=== PATIENT | male | born 1950 | race Caucasian/White ===

== ENCOUNTER → 2020-01-26 11:08 | Outpatient (CLI) | payer MEDICARE, SELFPAY ==
[2020-01-26 12:58] LABS: Albumin, Serum 3.8 g/dL (3.2-5.0); BUN 21 mg/dL (7-18); BUN/Creat Ratio 17.5 RATIO (10-20); Calcium,Total 9.1 mg/dL (8.5-10.1); Chloride 99 mmol/L (98-107); EST Glomerular Filtration Rate 63 mL/min (>60); Est Glom Filt Rate - Afr Amer 77 mL/min (>60); Glucose 186 mg/dL (74-106); Phosphorus 2.7 mg/dL (2.5-4.9); Potassium 4.6 mmol/L (3.5-5.1); Sodium Level 135 mmol/L (136-145)
[2020-01-26 13:37] LABS: Microalbumin,Random Urine 61.5 mg/L (NO RANGE EST.); Microalbumin:Creatinine Ratio 186.9 mg/g CRE (<30 mg/g CRE)
== END ==
PROVIDERS: PCP Internal Medicine; Referring Provider Internal Medicine Nephrology; Visit Provider Internal Medicine Nephrology
DX: N17.9 Acute kidney failure, unspecified (principal); E11.21 Type 2 diabetes mellitus with diabetic nephropathy
CPT/HCPCS: 36415; 80069; 82043; 82570

== ENCOUNTER → 2020-02-08 13:58 | Outpatient (CLI) | payer MEDICARE, SELFPAY ==
--- NOTE | 2020-02-08 14:00 | US_ITS ---
STUDY: RENAL ULTRASOUND - COMPLETE REASON FOR EXAM: Male, 70 years old. Acute renal failure. TECHNIQUE: Ultrasound evaluation of the kidneys was performed with real-time and static mendoza-scale imaging. COMPARISON: None. FINDINGS: RIGHT KIDNEY: Normal location of the right kidney, which is normal in size. The right kidney measures 11.3 x 4.8 x 5.7 cm. There is a normal cortex of the right kidney. The renal cortex measures 1.1 cm. There is no right renal mass or cyst. There are no right renal calculi. There is no right hydronephrosis. DISTAL RIGHT URETER: There is non-visualization of the distal right ureter. There is no demonstrated right ureterovesical junction calculus. There is a visualized right ureteral jet. LEFT KIDNEY: Normal location of the left kidney, which is normal in size. The left kidney measures 11.7 x 5.0 x 6.2 cm. There is a normal cortex of the left kidney. The renal cortex measures 1.6 cm. Well-circumscribed midpole echogenic nodule left kidney measuring 1.5 x 1.3 x 1.2 cm There are no left renal calculi. There is no left hydronephrosis. DISTAL LEFT URETER: There is non-visualization of the distal left ureter. There is no demonstrated left ureterovesical junction calculus. There is a visualized left ureteral jet. BLADDER: The distended urinary bladder has a volume of 77 ml. There is a normal wall thickness of the distended urinary bladder. There is no demonstrated mass within the urinary bladder. There are no demonstrated bladder calculi. US/Kidney and Bladder IMPRESSION: No hydronephrosis. 1.5 cm echogenic nodule midpole left kidney probably representing an incidental angiomyolipoma.. If the patient has a history of malignancy consider follow-up ultrasound in 6 months, CT of the kidneys without contrast or MRI. Otherwise negative exam. Electronically Signed: Ruddy Beasley MD at 2:07 EST , Service support ,
== END ==
PROVIDERS: PCP Internal Medicine; Referring Provider Internal Medicine Nephrology; Visit Provider Internal Medicine Nephrology
DX: N17.9 Acute kidney failure, unspecified (principal)
CPT/HCPCS: 76770

== ENCOUNTER → 2020-02-25 09:37 | Outpatient (CLI) | payer MEDICARE, SELFPAY ==
[2020-02-25 12:44] LABS: Hematocrit 45.8 % (40-54); Hemoglobin 14.1 g/dL (13.0-16.5); Mean Corp Hgb Conc 30.8 g/dL (32-36); Mean Corpuscular Hgb 29.1 pg (27.0-32.0); Mean Corpuscular Volume 94.6 fL (80-94); Mean Platelet Vol. 11.4 fl (6.2-12.0); Platelet Count 254 K/mm3 (150-450); RBC Distribution Width CV 12.9 % (11.6-14.6); RBC Distribution Width SD 45.1 fl (35.1-43.9); Red Blood Count 4.84 M/mm3 (4.6-6.2); White Blood Count 7.3 K/mm3 (4.4-11.0)
[2020-02-25 13:13] LABS: Albumin, Serum 3.7 g/dL (3.2-5.0); BUN 24 mg/dL (7-18); Calcium,Total 9.7 mg/dL (8.5-10.1); Chloride 104 mmol/L (98-107); Creatinine, Serum 1.26 mg/dL (0.70-1.30); EST Glomerular Filtration Rate 60 mL/min (>60); Est Glom Filt Rate - Afr Amer 72 mL/min (>60); Glucose 154 mg/dL (74-106); PTHIN 31.4 pg/mL (18.4-80.1); Phosphorus 3.1 mg/dL (2.5-4.9); Potassium 4.5 mmol/L (3.5-5.1); Sodium Level 136 mmol/L (136-145)
== END ==
PROVIDERS: PCP Internal Medicine; Visit Provider Internal Medicine Nephrology
DX: N18.31 Chronic kidney disease, stage 3a (principal)
CPT/HCPCS: 36415; 80069; 83970; 85027

== ENCOUNTER → 2020-08-04 13:48 | Outpatient (CLI) | payer MEDICARE, SELFPAY ==
--- NOTE | 2020-08-04 13:51 | US_ITS ---
STUDY: RENAL ULTRASOUND - COMPLETE REASON FOR EXAM: Male, 70 years old. Kidney lesion TECHNIQUE: Ultrasound evaluation of the kidneys was performed with real-time and static mendoza-scale imaging. COMPARISON: Comparison is made with prior examination in 02/08/2020. FINDINGS: RIGHT KIDNEY: Normal location of the right kidney, which is normal in size. The right kidney measures 11.5 cm x 4.6 cm x 6.5 cm. There is a normal cortex of the right kidney. The renal cortex measures 1.7 cm. There is a 2.8 cm x 2.3 cm x 2.7 cm cyst in the lateral aspect of the kidney. There are no right renal calculi. There is no right hydronephrosis. DISTAL RIGHT URETER: There is non-visualization of the distal right ureter. There is no demonstrated right ureterovesical junction calculus. There is no demonstrated right ureteral jet. LEFT KIDNEY: Normal location of the left kidney, which is normal in size. The left kidney measures 12.6 cm x 3.8 cm x 4.4 cm. There is a normal cortex of the left kidney. The renal cortex measures 1.4 cm. There is a 1.2 cm x 1.1 cm x 1.1 cm echogenic nodule suggestive of angiomyolipoma. This is unchanged. There is also evidence of a 8mm by 7 mm x 7 mm cyst. There are no left renal calculi. There is no left hydronephrosis. DISTAL LEFT URETER: There is non-visualization of the distal left ureter. There is no demonstrated left ureterovesical junction calculus. There is no demonstrated left ureteral jet. BLADDER: The bladder is not adequately distended for assessment at this time. US/Kidney and Bladder IMPRESSION: Bilateral renal cysts. Stable 8 mm x 7 mm x 7 mm echogenic nodule in the left kidney in keeping with angiomyolipoma. Electronically Signed: Chucho Bolanos MD at 15:07 EDT , Service support ,
== END ==
PROVIDERS: PCP Internal Medicine; Referring Provider Internal Medicine Nephrology; Visit Provider Internal Medicine Nephrology
DX: N28.9 Disorder of kidney and ureter, unspecified (principal)
CPT/HCPCS: 76770

== ENCOUNTER → 2020-08-31 11:01 | Outpatient (CLI) | payer MEDICARE, SELFPAY ==
[2020-08-31 11:42] LABS: Protein, Urine (Random) 6.2 mg/dL (<11.9); Protein:Creat Ratio 200 mg/g CRE (0-200)
[2020-08-31 11:56] LABS: Albumin, Serum 3.6 g/dL (3.2-5.0); BUN 27 mg/dL (7-18); BUN/Creat Ratio 17.2 RATIO (10-20); Chloride 103 mmol/L (98-107); Creatinine, Serum 1.57 mg/dL (0.70-1.30); EST Glomerular Filtration Rate 46 mL/min (>60); Est Glom Filt Rate - Afr Amer 56 mL/min (>60); Glucose 184 mg/dL (74-106); Phosphorus 2.7 mg/dL (2.5-4.9); Potassium 4.8 mmol/L (3.5-5.1); Sodium Level 136 mmol/L (136-145)
== END ==
PROVIDERS: PCP Internal Medicine; Visit Provider Internal Medicine Nephrology
DX: E11.21 Type 2 diabetes mellitus with diabetic nephropathy (principal); N18.31 Chronic kidney disease, stage 3a
CPT/HCPCS: 36415; 80069; 82570; 84156

== ENCOUNTER → 2020-09-28 08:49 | Outpatient (CLI) | payer MEDICARE, SELFPAY ==
[2020-09-28 09:56] LABS: Albumin, Serum 3.5 g/dL (3.2-5.0); BUN 24 mg/dL (7-18); BUN/Creat Ratio 18.3 RATIO (10-20); Calcium,Total 9.2 mg/dL (8.5-10.1); Chloride 103 mmol/L (98-107); Creatinine, Serum 1.31 mg/dL (0.70-1.30); EST Glomerular Filtration Rate 57 mL/min (>60); Est Glom Filt Rate - Afr Amer 69 mL/min (>60); Glucose 166 mg/dL (74-106); Phosphorus 2.7 mg/dL (2.5-4.9); Potassium 4.9 mmol/L (3.5-5.1); Sodium Level 133 mmol/L (136-145)
== END ==
PROVIDERS: PCP Internal Medicine; Referring Provider Internal Medicine Nephrology; Visit Provider Internal Medicine Nephrology
DX: E11.21 Type 2 diabetes mellitus with diabetic nephropathy (principal); N18.31 Chronic kidney disease, stage 3a
CPT/HCPCS: 36415; 80069

== ENCOUNTER → 2021-02-22 10:12 | Outpatient (CLI) | payer MEDICARE, SELFPAY ==
[2021-02-22 11:36] LABS: Hematocrit 41.6 % (40-54); Mean Corp Hgb Conc 33.7 g/dL (32-36); Mean Corpuscular Hgb 30.2 pg (27.0-32.0); Mean Corpuscular Volume 89.8 fL (80-94); Mean Platelet Vol. 10.9 fl (6.2-12.0); Platelet Count 220 K/mm3 (150-450); RBC Distribution Width CV 12.9 % (11.6-14.6); Red Blood Count 4.63 M/mm3 (4.6-6.2); White Blood Count 7.2 K/mm3 (4.4-11.0)
[2021-02-22 11:47] LABS: Albumin, Serum 3.7 g/dL (3.2-5.0); BUN 30 mg/dL (7-18); BUN/Creat Ratio 23.4 RATIO (10-20); Calcium,Total 9.6 mg/dL (8.5-10.1); Chloride 101 mmol/L (98-107); Creatinine, Serum 1.28 mg/dL (0.70-1.30); EST Glomerular Filtration Rate 59 mL/min (>60); Est Glom Filt Rate - Afr Amer 71 mL/min (>60); Glucose 171 mg/dL (74-106); Phosphorus 3.3 mg/dL (2.5-4.9); Potassium 5.2 mmol/L (3.5-5.1); Sodium Level 138 mmol/L (136-145)
[2021-02-22 11:49] LABS: Protein, Urine (Random) 17.9 mg/dL (<11.9); Protein:Creat Ratio 229 mg/g CRE (0-200)
[2021-02-22 12:45] LABS: PTHIN 28.4 pg/mL (18.4-80.1)
== END ==
PROVIDERS: PCP Internal Medicine; Visit Provider Internal Medicine Nephrology
DX: E11.21 Type 2 diabetes mellitus with diabetic nephropathy (principal); N18.31 Chronic kidney disease, stage 3a
CPT/HCPCS: 36415; 80069; 82570; 83970; 84156; 85027

== ENCOUNTER → 2021-09-04 | Outpatient (CLI) | payer MEDICARE, SELFPAY ==
[2021-09-04 12:57] LABS: Protein, Urine (Random) 13.8 mg/dL (<11.9); Protein:Creat Ratio 261 mg/g CRE (0-200)
[2021-09-04 13:07] LABS: Albumin, Serum 3.7 g/dL (3.2-5.0); BUN 26 mg/dL (7-18); BUN/Creat Ratio 19.1 RATIO (10-20); Calcium,Total 9.6 mg/dL (8.5-10.1); Chloride 100 mmol/L (98-107); Creatinine, Serum 1.36 mg/dL (0.70-1.30); EST Glomerular Filtration Rate 55 mL/min (>60); Est Glom Filt Rate - Afr Amer 66 mL/min (>60); Glucose 194 mg/dL (74-106); Potassium 4.3 mmol/L (3.5-5.1); Sodium Level 134 mmol/L (136-145)
== END | disposition home or self-care (01) ==
PROVIDERS: PCP Internal Medicine; Referring Provider Internal Medicine Nephrology; Visit Provider Internal Medicine Nephrology
DX: E11.22 Type 2 diabetes mellitus with diabetic chronic kidney disease (principal); N18.31 Chronic kidney disease, stage 3a; E78.5 Hyperlipidemia, unspecified
CPT/HCPCS: 36415; 80069; 82570; 84156

== ENCOUNTER → 2022-12-12 | Outpatient (CLI) | payer MEDICARE, SELFPAY ==
[2022-12-12 15:24] LABS: Absolute Lymphocyte Count 1.47 X10^3/uL (0.83-4.51); Absolute Neutrophil Count 4.3 X10^3/uL (2.0-7.7); Basophil# 0.03 X10^3/uL; Basophil% 0.5 % (0-1); Eosinophil# 0.13 X10^3/uL; Hematocrit 42.4 % (40-54); Hemoglobin 13.5 g/dL (13.0-16.5); Lymphocyte # 1.47 X10^3/ul (0.83-4.51); Lymphocyte % 22.7 % (19-41); Mean Corp Hgb Conc 31.8 g/dL (32-36); Mean Corpuscular Hgb 29.8 pg (27.0-32.0); Mean Corpuscular Volume 93.6 fL (80-94); Mean Platelet Vol. 11.9 fl (6.2-12.0); Monocyte# 0.53 X10^3/uL; Monocyte% 8.2 % (0-10); NRBC Flagged by Analyzer 0 % (0-5); Neutrophil # 4.26 X10^3/uL (2.7-7.7); Neutrophil % 65.8 % (47-70); Platelet Count 250 K/mm3 (150-450); RBC Distribution Width CV 13.2 % (11.6-14.6); RBC Distribution Width SD 45.1 fl (35.1-43.9); Red Blood Count 4.53 M/mm3 (4.6-6.2); White Blood Count 6.5 K/mm3 (4.4-11.0)
[2022-12-12 16:01] LABS: ALB/GLOB Ratio 0.8 RATIO (0.9-2.4); AST(SGOT) 18 U/L (15-37); Alanine Aminotransfer ALT/SGPT 32 U/L (16-61); Albumin, Serum 3.4 g/dL (3.2-5.0); Alkaline Phosphatase 45 U/L (45-117); Anion Gap 5 (5-15); BUN 23 mg/dL (7-18); BUN/Creat Ratio 16.3 RATIO (10-20); Calcium,Total 9.5 mg/dL (8.5-10.1); Chloride 102 mmol/L (98-107); Cholesterol 308 mg/dL (200); Creatinine, Serum 1.41 mg/dL (0.70-1.30); EST Glomerular Filtration Rate 52 mL/min (>60); Est Glom Filt Rate - Afr Amer 63 mL/min (>60); Globulin 4.4 g/dL (2.2-4.2); Glucose 215 mg/dL (74-106); High Density Lipoprotein 40 mg/dL; Potassium 4.7 mmol/L (3.5-5.1); Protein, Total 7.8 g/dL (6.4-8.2); Sodium Level 136 mmol/L (136-145); Thyroid Stim Hormone (TSH) 1.99 uIU/mL (0.358-3.74); Triglycerides 589 mg/dL
[2022-12-12 16:20] LABS: Hemoglobin A1c 7.7 % (3.8-5.6)
[2022-12-12 16:46] LABS: Microalbumin:Creatinine Ratio 365.8 mg/g CRE (<30 mg/g CRE)
== END | disposition home or self-care (01) ==
LOC: MFPLAB 11:54
PROVIDERS: PCP Family Medicine; Visit Provider Family Medicine
DX: E11.9 Type 2 diabetes mellitus without complications (principal)
CPT/HCPCS: 36415; 80053; 80061; 82043; 82570; 83036; 84443; 85025

== ENCOUNTER → 2022-12-18 | Outpatient (CLI) | payer MEDICARE, SELFPAY ==
--- NOTE | 2022-12-18 09:14 | US_ITS ---
STUDY: THYROID ULTRASOUND REASON FOR EXAM: Male, 72 years old. Thyroid nodule. TECHNIQUE: Ultrasound evaluation of the thyroid was performed with real-time and static jhaveri-scale imaging. COMPARISON: None. FINDINGS: RIGHT LOBE: The right lobe of the thyroid gland measures 4 cm x 2 cm x 2.1 cm. There is a homogeneous echotexture. There are no demonstrated solid, cystic or complex lesions. LEFT LOBE: The left lobe of the thyroid gland measures 3.2 cm x 1.7 cm x 1.8 cm. There is a homogeneous echotexture. There is a 3.4 mm x 2.7 mm x 2 mm cystic and solid nodule in the upper pole. ISTHMUS: The isthmus measures 3.3 mm. The regional lymph nodes are normal. US/Thyroid IMPRESSION: 3.4 mm x 2.7 mm x 2 mm solid and cystic nodule in the upper pole of the left lobe of the thyroid. Electronically Signed: Chucho Bolanos MD at 14:14 EDT ,
--- NOTE | 2022-12-18 10:08 | ECHOD_ITS ---
Reason For Study: MURMUR Procedure This was a 2D Doppler, Color Flow transthoracic echocardiogram. Exam performed in department. Left Ventricle Mild concentric left ventricular hypertrophy. Normal LV size. The left ventricular ejection fraction is 60 %. Diastolic function is indeterminate. Right Ventricle Normal right ventricle. Atria The left atrium is mildly enlarged. Normal right atrium. Mitral Valve Mild diffuse mitral valve thickening. Trivial mitral valve insufficiency. Tricuspid Valve Trivial tricuspid valve insufficiency. Right ventricular systolic pressure estimated to be 39 mmHg. Aortic Valve Severe diffuse aortic valve calcification. Mild aortic stenosis. Mild (1+) aortic valve insufficiency. Pulmonic Valve The pulmonic valve is not well visualized. Great Vessels Normal sized aortic root. Pericardium/Pleural No pericardial effusion. MMode/2D Measurements & Calculations LVIDd: 3.8 cm IVSd: 1.4 cm LVOT diam: 2.1 cm LVIDs: 3.0 cm LVPWd: 1.4 cm LVOT area: 3.5 cm2 FS: 21.3 % Ao root diam: 3.1 cm LAV(MOD-bp): 46.4 ml LVAd ap4: 26.0 cm2 LAV(MOD-bp) Indexed: 23.5 ml/m2 LVLd ap4: 8.8 cm LAV(MOD-sp2): 49.0 ml EDV(MOD-sp4): 69.6 ml LAV(MOD-sp4): 42.9 ml EDV(sp4-el): 65.5 ml LVAs ap4: 16.1 cm2 LVLs ap4: 7.2 cm ESV(MOD-sp4): 33.6 ml ESV(sp4-el): 30.6 ml EF(MOD-sp4): 51.7 % EF(sp4-el): 53.3 % SV(MOD-sp4): 36.0 ml SV(sp4-el): 34.9 ml LA A4 area: 16.8 cm2 LA dimension(2D): 4.1 cm RA A4 area: 10.4 cm2 TAPSE: 1.8 cm Time Measurements MV dec time: 0.24 sec Doppler Measurements & Calculations MV E max aayush: 80.8 cm/sec Lat Peak E' Aayush: 7.7 cm/sec Med Peak E' Aayush: 5.3 cm/sec MV A max aayush: 112.4 cm/sec E/E' lat: 10.5 E/E' med: 15.4 MV E/A: 0.72 MV V2 max: 112.9 cm/sec Ao V2 max: 266.8 cm/sec MV max P.1 mmHg MV dec slope: 385.4 cm/sec2 Ao max P.5 mmHg MV V2 mean: 74.3 cm/sec Ao V2 mean: 200.6 cm/sec MV mean P.4 mmHg Ao mean P.8 mmHg MV V2 VTI: 32.0 cm Ao V2 VTI: 63.0 cm AV (velocity ratio): 0.62 MVA(VTI): 4.3 cm2 YESSICA(I,D): 2.2 cm2 YESSICA(V,D): 2.1 cm2 AI max aayush: 447.0 cm/sec LV V1 max: 160.2 cm/sec SV(LVOT): 136.5 ml AI max P.9 mmHg LV V1 max P.3 mmHg LV V1 mean P.0 mmHg AI dec slope: 309.1 cm/sec2 LV V1 mean: 129.0 cm/sec AI P1/2t: 423.6 msec LV V1 VTI: 38.8 cm PA V2 max: 121.1 cm/sec TR max aayush: 291.3 cm/sec PA V2 mean: 74.5 cm/sec TR max P.0 mmHg ECHO/Echo Complete Interpretation Summary Mild concentric left ventricular hypertrophy. The left ventricular ejection fraction is 60 %. Diastolic function is indeterminate. The left atrium is mildly enlarged. Right ventricular systolic pressure estimated to be 39 mmHg. Severe diffuse aortic valve calcification. Mild aortic stenosis. Mild (1+) aortic valve insufficiency. Ordering Physician: Martinez Puga Referring Physician: Martinez Puga Performed By: Aylin Ha RCS
== END | disposition home or self-care (01) ==
LOC: CVS 09:07
PROVIDERS: PCP Family Medicine; Referring Provider Family Medicine; Visit Provider Family Medicine
DX: E04.1 Nontoxic single thyroid nodule (principal); R01.1 Cardiac murmur, unspecified
CPT/HCPCS: 76536; 93306

== ENCOUNTER → 2023-01-09 | Outpatient (CLI) | payer MEDICARE, SELFPAY ==
[2023-01-09 12:13] LABS: Bacteria 0 SEEN /hpf (None Seen); Mucous, Urine 0 SEEN /hpf (<or=2+); Red Blood Cells-Urine 0 SEEN /hpf (0-5); Squamous Epithelial Cells - UA 0 SEEN /hpf (0-5); White Blood Cells 0 SEEN /hpf (0-5)
[2023-01-09 15:18] LABS: Color, Urine Yellow (Yellow); Glucose, Dipstick Normal (Normal); Ketone-Dipstick Negative (Negative); Leukocyte Esterase-Dipstick 25 /ul (Negative); Nitrite-Dipstick Negative (Negative); Occult Blood-Urine Negative /ul (Negative); Protein-Dipstick 15 mg/dl (Negative); Urine Bilirubin Dipstick Negative (Negative); Urine Clarity Clear (Clear); Urine Urobilinogen Normal (Normal)
[2023-01-09 15:46] LABS: Protein, Urine (Random) 15.3 mg/dL (<11.9); Protein:Creat Ratio 510 mg/g CRE (0-200)
[2023-01-09 16:06] LABS: Anion Gap 6 (5-15); BUN 28 mg/dL (7-18); BUN/Creat Ratio 20.6 RATIO (10-20); Calcium,Total 9.5 mg/dL (8.5-10.1); Chloride 101 mmol/L (98-107); Creatinine, Serum 1.36 mg/dL (0.70-1.30); EST Glomerular Filtration Rate 54 mL/min (>60); Est Glom Filt Rate - Afr Amer 66 mL/min (>60); Glucose 175 mg/dL (74-106); Phosphorus 3.1 mg/dL (2.5-4.9); Potassium 4.4 mmol/L (3.5-5.1); Sodium Level 135 mmol/L (136-145)
[2023-01-09 16:27] LABS: PTHIN 39.8 pg/mL (18.4-80.1)
== END | disposition home or self-care (01) ==
LOC: MFPLAB 12:10
PROVIDERS: PCP Family Medicine; Visit Provider Family Medicine
DX: N18.30 Chronic kidney disease, stage 3 unspecified (principal)
CPT/HCPCS: 36415; 80048; 81001; 82306; 82570; 83970; 84100; 84156

== ENCOUNTER → 2023-04-17 | Outpatient (CLI) | payer MEDICARE, SELFPAY ==
--- OUTSIDE RECORDS SUMMARY | 2023-04-17 11:43 | XMS RPT_ITS | CCD ---
Author Name Unknown Address [address] [place] [address] Organization [facility] Care Team Providers Care Field Recorder Name Role Phone Sai MORALES, Franko Sofia Primary Care Provider [phone] OLDER, BRIANA Referring Unavailable MCDANIEL, FRANKO Sofia Primary Care Unavailable MCDANIEL, FRANKO Sofia Primary Care Unavailable MCDANIEL, FRANKO Sofia Attending Unavailable MCDANIEL, FRANKO Sofia Referring Unavailable OLDER, BRIANA Referring Unavailable MCDANIEL, FRANKO Sofia Primary Care Unavailable OLDER, BRIANA Attending Unavailable MCDANIEL, FRANKO Sofia Primary Care Unavailable MCDANIEL, FRANKO Sofia Referring Unavailable SAMSON GUILLEN Attending Unavailable MCDANIEL, FRANKO Sofia Referring Unavailable MCDANIEL, FRANKO Sofia Primary Care Unavailable MCDANIEL, FRANKO Sofia Referring Unavailable MCDANIEL, FRANKO Sofia Primary Care Unavailable MCDANIEL, FRANKO Sofia Referring Unavailable MCDAINEL, FRANKO Sofia Primary Care Unavailable MCDANIEL, FRANKO Sofia Attending Unavailable MCDANIEL, FRANKO Sofia Primary Care Unavailable MCDANIEL, FRANKO Sofia Referring Unavailable MCDANIEL, FRANKO Sofia Primary Care Unavailable MCDANIEL, FRANKO Sofia Primary Care Unavailable Medications Current Medications Medication Drug Class(es) Dates Sig (Normalized) Sig (Original) Blood-Glucose Meter monitoring kit (1 source) Start: 09-18-2021 End: 09-19-2021 Blood-Glucose Meter monitoring kit Glucose Meter Kit (choose kit covered by insurance)- Dx: Type 2 DM - Uncontrolled E11.65 1 Each 0 09/18/2021 09/19/2021 Active Completed/Discontinued Medications Medication Drug Class(es) Dates Sig (Normalized) Sig (Original) amLODIPine 2.5 mg oral tablet (20 sources) Dihydropyridine Calcium Channel Gómez Start: 06-16-2021 End: 12-19-2021 take 1 tablet by mouth once daily amLODIPine (NORVASC) 2.5 mg tablet Take 1 tablet by mouth once daily. 90 tablet 3 12/19/2021 Active Problems Active Problems Problem Classification Problem Date Documented Da te Episodic/Chronic Chronic kidney disease (1 source) Chronic kidney disease stage 3; Translations: [Stage 3 chronic kidney disease, unspecified whether stage 3a or 3b CKD (HCC)] Chronic Diabetes mellitus with complications (20 sources) Type 2 diabetes mellitus; Translations: [Type 2 diabetes mellitus with diabetic chronic kidney disease] Onset: 06-13-2021 Chronic Diabetes mellitus without complication (1 source) Diabetes mellitus without complication; Translations: [Type 2 diabetes mellitus with stage 3a chronic kidney disease, without long-term current use of insulin (HCC)] Onset: 06-13-2021 Disorders of lipid metabolism (20 sources) Hyperlipidemia; Translations: [Hyperlipidemia, unspecified] Onset: 01-03-2016 Chronic Essential hypertension (20 sources) Essential hypertension; Translations: [Essential (primary) hypertension] Onset: 03-25-1999 Chronic Fluid and electrolyte disorders (2 sources) Hyperkalemia; Translations: [Hyperkalemia] Episodic Heart valve disorders (5 sources) Aortic valve stenosis; Translations: [Nonrheumatic aortic (valve) stenosis] Onset: 07-09-2022 Chronic Hypertension with complications and secondary hypertension (20 sources) Hypertensive renal disease; Translations: [Hypertensive chronic kidney disease with stage 1 through stage 4 chronic kidney disease, or unspecified chronic kidney disease] Onset: 06-13-2021 Chronic Immunizations and screening for infectious disease (1 source) Vaccination needed; Translations: [Encounter for immunization] Episodic Other diseases of kidney and ureters (20 sources) Renal mass; Translations: [Other specified disorders of kidney and ureter] Onset: 05-05-2020 05-05-2020 Chronic Other hereditary and degenerative nervous system conditions (20 sources) Essential tremor; Translations: [Essential tremor] 12-01-2015 Chronic Other nutritional; endocrine; and metabolic disorders (20 sources) Obese class I; Translations: [Obesity, unspecified] Onset: 05-05-2018 05-05-2018 Chronic Past or Other Problems Problem Classification Problem Date Documented Da te Episodic/Chronic Heart valve disorders (15 sources) Heart murmur; Translations: [Cardiac murmur, unspecified] Onset: 03-21-2022 Episodic Other screening for suspected conditions (not mental disorders or infectious disease) (3 sources) Patient encounter status; Translations: [Encounter for screening for malignant neoplasm of colon] Onset: 07-05-2022 Episodic Other skin disorders (20 sources) Actinic keratosis; Translations: [Actinic keratosis] Onset: 12-27-2016 12-27-2016 Episodic Results Test Name Value Interpretation Reference Range Facil ity Vital Signs Date Time Vital Sign Value Performing Clinician Faci lity 06-20-2022 09:18-0400 Diastolic blood pressure 77 mm[Hg] Franko Mcdaniel MD Work Phone: [facility] 06-20-2022 09:18-0400 Heart rate 80 /min Franko Mcdaniel MD Work Phone: [facility] 06-20-2022 09:18-0400 Systolic blood pressure 135 mm[Hg] Franko Mcdaniel MD Work Phone: [facility] 06-20-2022 09:09-0400 Body weight 90.72 kg Franko Mcdaniel MD Work Phone: [facility] 06-20-2022 09:09-0400 Respiratory rate 18 /min Franko Mcdaniel MD Work Phone: [facility] 03-21-2022 08:32-0500 Diastolic blood pressure 84 mm[Hg] Franko Mcdaniel MD Work Phone: [facility] 03-21-2022 08:32-0500 Heart rate 81 /min Franko Mcdaniel MD Work Phone: [facility] 03-21-2022 08:32-0500 Systolic blood pressure 158 mm[Hg] Franko Mcdaniel MD Work Phone: [facility] 03-21-2022 08:23-0500 Body temperature 98.01 [degF] Franko Mcdaniel MD Work Phone: [facility] 03-21-2022 08:23-0500 Body weight 92.08 kg Franko Mcdaniel MD Work Phone: [facility] 03-21-2022 08:23-0500 Respiratory rate 16 /min Franko Mcdaniel MD Work Phone: [facility] 12-19-2021 09:33-0400 Body weight 91.17 kg Briana Older MOVIE THEATER USHER.FISHING ROD MARKER Work Phone: [facility] 12-19-2021 09:33-0400 Diastolic blood pressure 86 mm[Hg] Briana Older MOVIE THEATER USHER.FISHING ROD MARKER Work Phone: [facility] 12-19-2021 09:33-0400 Heart rate 75 /min Briana Older MOVIE THEATER USHER.FISHING ROD MARKER Work Phone: [facility] 12-19-2021 09:33-0400 SaO2% (BldA) [Mass fraction] 97 % Briana Older MOVIE THEATER USHER.FISHING ROD MARKER Work Phone: [facility] 12-19-2021 09:33-0400 Systolic blood pressure 134 mm[Hg] Briana Older MOVIE THEATER USHER.FISHING ROD MARKER Work Phone: [facility] 09-18-2021 09:46-0400 Diastolic blood pressure 72 mm[Hg] Briana Older MOVIE THEATER USHER.FISHING ROD MARKER Work Phone: [facility] 09-18-2021 09:46-0400 Systolic blood pressure 116 mm[Hg] Briana Older MOVIE THEATER USHER.FISHING ROD MARKER Work Phone: [facility] 09-18-2021 09:13-0400 Body weight 87.09 kg Briana Older MOVIE THEATER USHER.FISHING ROD MARKER Work Phone: [facility] 09-18-2021 09:13-0400 Heart rate 78 /min Briana Older MOVIE THEATER USHER.FISHING ROD MARKER Work Phone: [facility] 09-18-2021 09:13-0400 Respiratory rate 16 /min Briana Older MOVIE THEATER USHER.FISHING ROD MARKER Work Phone: [facility] 06-15-2021 09:31-0400 Diastolic blood pressure 80 mm[Hg] Franko Mcdaniel MD Work Phone: [facility] 06-15-2021 09:31-0400 Heart rate 79 /min Franko Mcdaniel MD Work Phone: [facility] 06-15-2021 09:31-0400 Systolic blood pressure 153 mm[Hg] Franko Mcdaniel MD Work Phone: [facility] 06-15-2021 09:16-0400 Body temperature 97.3 [degF] Franko Mcdaniel MD Work Phone: [facility] 06-15-2021 09:16-0400 Body weight 90.72 kg Franko Mcdaniel MD Work Phone: [facility] 06-15-2021 09:16-0400 Respiratory rate 18 /min Franko Mcdaniel MD Work Phone: [facility] Encounters Encounter Date Encounter Type Care Provider Facility Start: 12-03-2022 Emergency department patient visit FRANKO MCDANIEL Facility:[facility] Start: 10-17-2022 ambulatory Pretty (Pss) [facility] Procedures Date Procedure Procedure Detail Performing Clinician Start: 07-05-2022 Colonoscopy Franko Troy MD Work Phone: Start: 09-18-2021 [employer] COVI D-19 VACCINE, AGE 12+ YR (SANTOS TOP) Briana Older MOVIE THEATER USHER.FISHING ROD MARKER Work Phone: Start: 09-18-2021 Adult depression scr eening assessment Briana Older MOVIE THEATER USHER.FISHING ROD MARKER Work Phone: Start: 09-04-2021 BMP - EXTERNAL [facility] Prov ider Start: 09-04-2021 EX ALB/CREAT RND UR [facility] Provider Start: 09-14-2020 Adult depression scr eening assessment Franko Mcdaniel MD Work Phone: Start: 08-24-2015 Colonoscopy Franko Troy MD Work Phone: Plan of Treatment Date Care Activity Detail Author Start: 07-05-2029 Colonoscopy COLONOSCOPY [facility] Start: 07-05-2029 COLORECTAL CANCER SCREENING COLORECTAL CANCER SCREENING [facility] Start: 07-06-2023 Colonoscopy COLONOSCOPY [facility] Start: 07-06-2023 COLORECTAL CANCER SCREENING COLORECTAL CANCER SCREENING [facility] Start: 06-21-2023 ANNUAL PCP TEAM BOOKKEEPING ASSISTANT RADHA DISEASE VISIT ANNUAL PCP TEAM CHRONIC DISEASE VISIT [facility] Start: 06-21-2023 HEMOGLOBIN/HEMATOCRIT HEMOGLOBIN/HEM ATOCRIT [facility] Start: 06-21-2023 SERUM CREATININE SERUM CREATININE Cl [facility] Start: 03-21-2023 ANNUAL PCP TEAM BOOKKEEPING ASSISTANT RADHA DISEASE VISIT ANNUAL PCP TEAM CHRONIC DISEASE VISIT [facility] Start: 03-21-2023 Hepatitis B surface antibody level LDL CHOLESTEROL [facility] Start: 03-21-2023 SERUM CREATININE SERUM CREATININE [facility] Start: 12-19-2022 ANNUAL PCP TEAM BOOKKEEPING ASSISTANT RADHA DISEASE VISIT ANNUAL PCP TEAM CHRONIC DISEASE VISIT [facility] Start: 12-19-2022 COVID-19 VACCINE (4 - Booster for Moderna series) COVID-19 VACCINE (4 - Booster for Moderna series) [facility] Immunizations Immunization Date Immunization Notes Care Provider Felipe kendall 09-18-2021 COVID-19 vaccine, ag e 12+ yr (its learning - SANTOS TOP) Briana Older MOVIE THEATER USHER.FISHING ROD MARKER Work Phone: [facility] 12-16-2020 influenza, high-dose , quadrivalent vaccine (FLUZONE HIGH DOSE QUADRIVALENT) Franko Mcdaniel MD Work Phone: [facility] 08-04-2020 COVID-19 vaccine, fu ll dose (MODERNA) Franko Mcdaniel MD Work Phone: [facility] Work Phone: 07-07-2020 COVID-19 vaccine, fu ll dose (MODERNA) Franko Mcdaniel MD Work Phone: [facility] Work Phone: 01-17-2019 influenza, high dose seasonal, preservative-free Franko Mcdaniel MD Work Phone: [facility] Work Phone: 10-08-2017 pneumococcal polysaccharide vaccine, 23 valent Franko Mcdaniel MD Work Phone: [facility] Work Phone: 01-25-2017 influenza, high dose seasonal, preservative-free Franko Mcdaniel MD Work Phone: [facility] 02-06-2016 pneumococcal conjuga te vaccine, 13 valent Franko Mcdaniel MD Work Phone: [facility] 01-03-2016 influenza, high dose seasonal, preservative-free Franko Mcdaniel MD Work Phone: [facility] 01-05-2015 influenza, high dose seasonal, preservative-free Franko Mcdaniel MD Work Phone: [facility] 05-29-2012 pneumococcal polysaccharide vaccine, 23 jayce Mcdaniel MD Work Phone: [facility] Work Phone: Payers Date Payer Category Payer Medicare [employer]ENA MEDICARE A ETNA MEDICARE PPO [id number] 2021-Present [phone] [address] [place] [address] PPO [id number] 2021 Medicare AETNA MEDICARE A ETNA MEDICARE PPO [id number] 2021-Present [phone] [address] [place] [address] PPO [id number] 2021 Medicare [id number] Social History Date Type Detail Facility Start: 11-04-2015 End: 12-09-2015 Tobacco smoking status MTIS Never smoked tobacco [facility] Start: 11-04-2015 End: 12-09-2015 Tobacco use and exposure Smokeless tobacco non-user [facility] Start: 06-15-2021 End: 07-26-2022 Alcohol intake Current non-drinker of alcohol (finding) [facility] Start: 1950 Sex Assigned At Not on file C [facility] Start: 06-05-2021 End: 12-19-2021 Exposure to SARS-CoV-2 (event) Not sure [facility] Work Phone: Start: 07-26-2022 End: 08-16-2022 History of Social function [facility] Work Phone: Start: 07-26-2022 End: 08-16-2022 Tobacco use panel [facility] Work Phone: Adult Depression Screening Assessment 0 [facility] Work Phone: Medical Equipment Procedure Code Equipment Code Equipment Origin al Text Equipment Identifier Dates Start: 09-14-2020 End: 09-18-2021 Clinical Notes 10-10-2017 to 01-05-2023 Pretty Frazier - 10/17/2022 12:43 PM EDT Note Date & Type Note Facility 01-05-2023 Note HNO ID: [id number] Author: Note, Interface Service: ? Author Type: ? Type: Progress Notes Filed: 01/05/2023 5:29 AM Note Text: Epic Scheduled Downtime: 01/05/2023 1:00:00 AM to 01/05/2023 1:28:00 AM [facility] 12-06-2022 Note HNO ID: [id number] Author: Tess Green RN Service: ? Author Type: Registered Nurse Type: Progress Notes Filed: 12/06/2022 1:25 PM Note Text: CDM ENROLLMENT Provider Action / FYI: ckd, dm, htn Contact Made with Patient: No, left message. Tess Green RN December 06, 2022 1:24 PM [facility] 12-05-2022 Note HNO ID: [id number] Author: Tess Green RN Service: ? Author Type: Registered Nurse Type: Progress Notes Filed: 12/06/2022 1:25 PM Note Text: CDM ENROLLMENT Provider Action / FYI: - ckd, dm, htn Contact Made with Patient: No, left message. Tess Green RN December 05, 2022 2:49 PM [facility] 12-05-2022 Note Patient Outreach (AM [facility]) VINCENZO BUCIO ([id number]) 1950 M Date Time Provider Department 12/05/22 TESS GREEN During your visit today, we recorded the following information about you: Tess Green RN 12/06/2022 1:25 PM Signed CDM ENROLLMENT Provider Action / FYI: - ckd, dm, htn Contact Made with Patient: No, left message. Tess Green RN December 05, 2022 2:49 PM Tess Green RN 12/06/2022 1:25 PM Signed CDM ENROLLMENT Provider Action / FYI: ckd, dm, htn Contact Made with Patient: No, left message. Tess Green RN December 06, 2022 1:24 PM Allergies As of Date: 12/05/2022 (No Known Allergies) Date Reviewed: 12/03/2022 Reviewed by: Jailene Shannon RN - Fully Assessed Reason for Visit: cdm [Other] Cmt: enrollment Prescriptions as of 12/06/2022 - lisinopril (PRINIVIL) 20 mg tablet Take 20 mg by mouth once daily. - bisoprolol-hydroCHLOROthiazide (ZIAC) 10-6.25 mg per tablet Take 2 tablets by mouth once daily. - losartan (COZAAR) 50 mg tablet Take 1 tablet by mouth once daily. - dulaglutide (TRULICITY) 3 mg/0.5 mL pen injector Inject 3 mg subcutaneously one time a week. - amLODIPine (NORVASC) 2.5 mg tablet Take 1 tablet by mouth once daily. - rosuvastatin (CRESTOR) 10 mg tablet Take 1 tablet by mouth every other day at bedtime. - metFORMIN (GLUCOPHAGE) 1,000 mg tablet Take 1 tablet by mouth daily with breakfast. - Lancets lancets Test blood sugar(s) 1 times daily. Dx: Type 2 DM - Uncontrolled E11.65 Insulin: No - blood sugar diagnostic (BLOOD GLUCOSE TEST) test strip Test blood sugar(s) 1 times daily. Dx: Type 2 DM - Uncontrolled E11.65 Insulin: No - Multivitamin capsule Take 1 capsule by mouth once daily. Facility-Administered Medications as of 12/06/2022 - perflutren lipid microspheres 1.3 mL in NaCl (PF) 0.9% 10 mL injection (DEFINITY) - sodium chloride 0.9 % (flush) 10 mL (BD POSIFLUSH) Problem List As Of Date 12/05/2022 Noted Resolved Anogenital warts [A63.0] 12/27/2016 Essential tremor [G25.0] Type 2 diabetes mellitus with stage 3a chronic * Obesity (BMI 30-39.9) [E66.9] 05/05/2018 Hyperlipidemia, unspecified [E78.5] 01/03/2016 Frequency of micturition [R35.0] 01/03/2016 12/27/2016 Essential hypertension [I10] 03/25/1999 Actinic keratosis of scalp [L57.0] 12/27/2016 Kidney insufficiency [N28.9] 10/10/2017 05/05/2020 Obesity, Class I, BMI 30-34.9 [E66.9] 05/05/2018 Nodule of kidney [N28.89] 05/05/2020 Hypertensive kidney disease with stage 3a chron*06/13/2021 Heart murmur [R01.1] 03/21/2022 Moderate to severe aortic stenosis [I35.0] 07/09/2022 Encounter Status:Closed by TESS GREEN on 12/06/22 [facility] 10-17-2022 Note HNO ID: [id number] Author: Pretty Frazier Service: ? Author Type: ? Type: Progress Notes Filed: 10/17/2022 4:14 PM Note Text: POPULATION HEALTH NAVIGATION OUTREACH Action/FYI 10/17/22 Discuss the following Aet care gaps: ~PCP follow up ~Pharmacy consult (last A1C 06/20/22 was *9.1) ~Dilated Retinal exam due 12/08/22 or after Outcome: ~Spoke with patient who declined scheduling. States he is looking for another PCP outside of [facility] and will call back when he has found someone so his chart can be updated. Patient Identified by Name and : YES, via phone Outreach Outcome/Action Spoke to patient / parent / legal guardian: Patient declined Did you use a PCP flex slot to schedule this appointment? N/A Reason for Outreach Care Gap or Scheduling/Wellness visits Payer: Payor: AETNA MEDICARE / Plan: AETNA MEDICARE PPO / Product Type: PPO / Care Gap Reviewed:: Follow-up appointment Diabetic Eye Exam Reminder: Reminder note to check Health Maintenance for items below Health Maintenance items due: BP CONTROLLED (<130/80) Never done DTAP,TDAP,TD(1 - Tdap) Never done SHINGRIX VACCINE(1 of 2) Never done URINE ALBUMIN:CREATININE RATIO due on 09/04/2022 HBA1C due on 09/20/2022 DIABETIC FOOT EXAM due on 09/18/2022 Navigation Signature: Pretty Rodriguez Population Health Navigator October 17, 2022 12:43 PM [facility] 10-17-2022 Note Patient Outreach (NE TNAV) VINCENZO BUCIO ([id number]) 1950 M Date Time Provider Department 10/17/22 PRETTY RODRIGUEZ (PSS) NETNAV During your visit today, we recorded the following information about you: Pretty Frazier 10/17/2022 4:14 PM Signed POPULATION HEALTH NAVIGATION OUTREACH Action/FYI 10/17/22 Discuss the following [employer] care gaps: ~PCP follow up ~Pharmacy consult (last A1C 06/20/22 was *9.1) ~Dilated Retinal exam due 12/08/22 or after Outcome: ~Spoke with patient who declined scheduling. States he is looking for another PCP outside of [facility] and will call back when he has found someone so his chart can be updated. Patient Identified by Name and : YES, via phone Outreach Outcome/Action Spoke to patient / parent / legal guardian: Patient declined Did you use a PCP flex slot to schedule this appointment? N/A Reason for Outreach Care Gap or Scheduling/Wellness visits Payer: Payor: AETNA MEDICARE / Plan: AETNA MEDICARE PPO / Product Type: PPO / Care Gap Reviewed:: Follow-up appointment Diabetic Eye Exam Reminder: Reminder note to check Health Maintenance for items below Health Maintenance items due: BP CONTROLLED (<130/80) Never done DTAP,TDAP,TD(1 - Tdap) Never done SHINGRIX VACCINE(1 of 2) Never done URINE ALBUMIN:CREATININE RATIO due on 09/04/2022 HBA1C due on 09/20/2022 DIABETIC FOOT EXAM due on 09/18/2022 Navigation Signature: Pretty Savannah Population Health Navigator October 17, 2022 12:43 PM Allergies As of Date: 10/17/2022 (No Known Allergies) Date Reviewed: 07/05/2022 Reviewed by: Eun Kang RN - Fully Assessed Reason for Visit: Population Health Navigation Outreach [3910] Cmt: Aetna care gaps Prescriptions as of 10/17/2022 - bisoprolol-hydroCHLOROthiazide (ZIAC) 10-6.25 mg per tablet Take 2 tablets by mouth once daily. - losartan (COZAAR) 50 mg tablet Take 1 tablet by mouth once daily. - dulaglutide (TRULICITY) 3 mg/0.5 mL pen injector Inject 3 mg subcutaneously one time a week. - amLODIPine (NORVASC) 2.5 mg tablet Take 1 tablet by mouth once daily. - rosuvastatin (CRESTOR) 10 mg tablet Take 1 tablet by mouth every other day at bedtime. - metFORMIN (GLUCOPHAGE) 1,000 mg tablet Take 1 tablet by mouth daily with breakfast. - Lancets lancets Test blood sugar(s) 1 times daily. Dx: Type 2 DM - Uncontrolled E11.65 Insulin: No - blood sugar diagnostic (BLOOD GLUCOSE TEST) test strip Test blood sugar(s) 1 times daily. Dx: Type 2 DM - Uncontrolled E11.65 Insulin: No - Multivitamin capsule Take 1 capsule by mouth once daily. Facility-Administered Medications as of 10/17/2022 - perflutren lipid microspheres 1.3 mL in NaCl (PF) 0.9% 10 mL injection (DEFINITY) - sodium chloride 0.9 % (flush) 10 mL (BD POSIFLUSH) Problem List As Of Date 10/17/2022 Noted Resolved Anogenital warts [A63.0] 12/27/2016 Essential tremor [G25.0] Type 2 diabetes mellitus with stage 3a chronic * Obesity (BMI 30-39.9) [E66.9] 05/05/2018 Hyperlipidemia, unspecified [E78.5] 01/03/2016 Frequency of micturition [R35.0] 01/03/2016 12/27/2016 Essential hypertension [I10] 03/25/1999 Actinic keratosis of scalp [L57.0] 12/27/2016 Kidney insufficiency [N28.9] 10/10/2017 05/05/2020 Obesity, Class I, BMI 30-34.9 [E66.9] 05/05/2018 Nodule of kidney [N28.89] 05/05/2020 Hypertensive kidney disease with stage 3a chron*06/13/2021 Heart murmur [R01.1] 03/21/2022 Moderate to severe aortic stenosis [I35.0] 07/09/2022 Encounter Status:Closed by PRETTY FRAZIER on 10/17/22 [facility] 10-17-2022 History of Present illness Narrative POPULATION HEALTH NAVIGATION OUTREACH Action/FYI 10/17/22 Discuss the following t care gaps: ~PCP follow up ~Pharmacy consult (last A1C 06/20/22 was *9.1) ~Dilated Retinal exam due 12/08/22 or after Outcome: ~Spoke with patient who declined scheduling. States he is looking for another PCP outside of [facility] and will call back when he has found someone so his chart can be updated. Patient Identified by Name and : YES, via phone Outreach Outcome/Action Spoke to patient / parent / legal guardian: Patient declined Did you use a PCP flex slot to schedule this appointment? N/A Reason for Outreach Care Gap or Scheduling/Wellness visits Payer: Payor: AETNA MEDICARE / Plan: AETNA MEDICARE PPO / Product Type: PPO / Care Gap Reviewed:: Follow-up appointment Diabetic Eye Exam Reminder: Reminder note to check Health Maintenance for items below Health Maintenance items due: BP CONTROLLED (<130/80) Never done DTAP,TDAP,TD(1 - Tdap) Never done SHINGRIX VACCINE(1 of 2) Never done URINE ALBUMIN:CREATININE RATIO due on 09/04/2022 HBA1C due on 09/20/2022 DIABETIC FOOT EXAM due on 09/18/2022 Navigation Signature: Pretty Rodriguez Population Health Navigator October 17, 2022 12:43 PM documented in this encounter [facility] documented in this encounter [facility]07-05-2023 NotePatient Outreach (INT[facility]) ANABELAVINCENZO ([id number]) 1950 M Date Time Provider Department 09/26/22 FRANKO MCDANIEL [facility] During your visit today, we recorded the following information about you: Allergies As of Date: 09/26/2022 (No Known Allergies) Date Reviewed: 07/05/2022 Reviewed by: Eun Kang RN - Fully Assessed Visit Diagnosis:Type 2 diabetes mellitus with stage 3a chronic kidney disease, without long-term current use of insulin (HCC) [E11.22, N18.31] Order(s):ALBUMIN/CREAT RATIO RND UR [SQUACR] Order #: [id number] FUTURE HGB A1C [KIVMF2R] Order #: [id number] FUTURE Prescriptions as of 10/01/2022 - bisoprolol-hydroCHLOROthiazide (ZIAC) 10-6.25 mg per tablet Take 2 tablets by mouth once daily. - losartan (COZAAR) 50 mg tablet Take 1 tablet by mouth once daily. - dulaglutide (TRULICITY) 3 mg/0.5 mL pen injector Inject 3 mg subcutaneously one time a week. - amLODIPine (NORVASC) 2.5 mg tablet Take 1 tablet by mouth once daily. - rosuvastatin (CRESTOR) 10 mg tablet Take 1 tablet by mouth every other day at bedtime. - metFORMIN (GLUCOPHAGE) 1,000 mg tablet Take 1 tablet by mouth daily with breakfast. - Lancets lancets Test blood sugar(s) 1 times daily. Dx: Type 2 DM - Uncontrolled E11.65 Insulin: No - blood sugar diagnostic (BLOOD GLUCOSE TEST) test strip Test blood sugar(s) 1 times daily. Dx: Type 2 DM - Uncontrolled E11.65 Insulin: No - Multivitamin capsule Take 1 capsule by mouth once daily. Facility-Administered Medications as of 10/01/2022 - perflutren lipid microspheres 1.3 mL in NaCl (PF) 0.9% 10 mL injection (DEFINITY) - sodium chloride 0.9 % (flush) 10 mL (BD POSIFLUSH) Problem List As Of Date 09/26/2022 Noted Resolved Anogenital warts [A63.0] 12/27/2016 Essential tremor [G25.0] Type 2 diabetes mellitus with stage 3a chronic * Obesity (BMI 30-39.9) [E66.9] 05/05/2018 Hyperlipidemia, unspecified [E78.5] 01/03/2016 Frequency of micturition [R35.0] 01/03/2016 12/27/2016 Essential hypertension [I10] 03/25/1999 Actinic keratosis of scalp [L57.0] 12/27/2016 Kidney insufficiency [N28.9] 10/10/2017 05/05/2020 Obesity, Class I, BMI 30-34.9 [E66.9] 05/05/2018 Nodule of kidney [N28.89] 05/05/2020 Hypertensive kidney disease with stage 3a chron*06/13/2021 Heart murmur [R01.1] 03/21/2022 Moderate to severe aortic stenosis [I35.0] 07/09/2022 Encounter Status:Closed by ANGLE STACY [facility]/22[facility] Miscellaneous Notes* Telephone Encounter - China Wiggins - 07/12/2022 1:17 PM EDT 2nd attempt Called PT LVM to call back and schedule consult to cardio. China PSS * Telephone Encounter - China Wiggins - 07/11/2022 8:[address] consult for cardio. Called PT LVM to call back and schedule consult to anna. [place] PSS * Telephone Encounter - Cristela Ridley LPN - 07/09/2022 2:55 PM EDT Patient notified of below results/recommendation, verbalized understanding. PSS please contact Patient to schedule Cardiology consult. Cristela Ridley LPN * Telephone Encounter - Cristela Ridley LPN - 07/09/2022 2:53 PM EDT ----- Message from Franko Mcdaniel MD sent at 07/09/2022 9:27 AM EDT ----- Moderate severe aortic valve stenosis. Consult cardiology. Go to ER for new cardiac symptoms like chest pain, dyspnea, syncope, palpitations, etc. [facility] NoteHNO ID: [id number] Author: Cammie Chisholm Service: ? Author Type: ? Type: Progress Notes Filed: 07/06/2022 11:37 AM Note Text: Patient had his colonoscopy 07-[address] [place] [facility] NoteHNO ID: [id number] Author: Eun Kang RN Service: ? Author Type: Registered Nurse Type: Nursing Progress Note Filed: 07/05/2022 10:34 AM Note Text: Pt more awake. Abd softer and non distended. Eun Kang [facility]-2023 NoteHNO ID: [id number] Author: Eun Kang RN Service: ? Author Type: Registered Nurse Type: Nursing Progress Note Filed: 07/05/2022 9:21 AM Note Text: Pt with purse lip breathing. Has passed some air rectally. Eun Kang [facility]04-[facility]-2023 Miscellaneous Notes* Telephone Encounter - Cristy Aiken RPh - 06/28/2022 9:11 AM EDT Noted. Thank you! * Telephone Encounter - Seema Burleson RN - 06/28/2022 8:44 AM EDT Patient called to reschedule Initial Pharmacy appointment d/t not realizing appointment was today. Rescheduled to first available 08/16/2022. Patient called at 8:39 am. I didn't cancel the current appointment as I wasn't sure how pharm handled cancellation that close to appointment time. Seema Burleson RN documented in [facility]23 NoteHNO ID: [id number] Author: Franko Mcdaniel MD Service: ? Author Type: Physician Type: Progress Notes Filed: 06/20/2022 9:59 AM Note Text: This note was created using [employer]. Subjective Vincenzo Bucio is a 72 year old male. His hypertension was improving but diabetes mellitus was not yet close to goal. He was taking his medications and no adverse effects were noted at this time. Review of Systems Constitutional: Negative for appetite change, fatigue and fever. Respiratory: Negative for cough, chest tightness and shortness of breath. Cardiovascular: Negative for chest pain, palpitations and leg swelling. Gastrointestinal: Negative for diarrhea, nausea and vomiting. Genitourinary: Negative. ACTIVE PROBLEM LIST Essential Tremor Type 2 Diabetes Mellitus With Stage 3a Chronic Kidney Disease, Without Long-Term Current Use of Insulin (Hcc) Hyperlipidemia, Unspecified Essential Hypertension Actinic Keratosis of Scalp Obesity, Class I, Bmi 30-34.9 Nodule of Kidney Hypertensive Kidney Disease With Stage 3a Chronic Kidney Disease (Hcc) Heart Murmur Current Outpatient Medications Medication Sig dulaglutide (TRULICITY) 1.5 mg/0.5 mL pen injector Inject 1.5 mg subcutaneously one time a week. Inject once per week. Discard Pen After losartan (COZAAR) 50 mg tablet Take 1 tablet by mouth once daily. amLODIPine (NORVASC) 2.5 mg tablet Take 1 tablet by mouth once daily. rosuvastatin (CRESTOR) 10 mg tablet Take 1 tablet by mouth every other day at bedtime. metFORMIN (GLUCOPHAGE) 1,000 mg tablet Take 1 tablet by mouth daily with breakfast. bisoprolol-hydroCHLOROthiazide (ZIAC) 10-6.25 mg per tablet Take 2 tablets by mouth once daily. Lancets lancets Test blood sugar(s) 1 times daily. Dx: Type 2 DM - Uncontrolled E11.65 Insulin: No blood sugar diagnostic (BLOOD GLUCOSE TEST) test strip Test blood sugar(s) 1 times daily. Dx: Type 2 DM - Uncontrolled E11.65 Insulin: No Multivitamin capsule Take 1 capsule by mouth once daily. No current facility-administered medications for this visit. Objective BP 135/77 (BP Site: Left Arm, BP Position: Sitting, BP Cuff Size: Large Adult) Pulse 80 Resp 18 Wt 90.7 kg (200 lb) BMI 32.28 kg/m? Physical Exam Constitutional: General: He is not in acute distress. Appearance: He is not ill-appearing. Cardiovascular: Heart sounds: S1 normal and S2 normal. Murmur heard. Crescendo systolic murmur is present with a grade of 1/6. Comments: Murmur at the base. Abdominal: Palpations: Abdomen is soft. Tenderness: There is no abdominal tenderness. Musculoskeletal: Right lower leg: No edema. Left lower leg: No edema. Neurological: Mental Status: He is alert. Depression Screening 09/14/2020 09/18/2021 12/19/2021 06/20/2022 PHQ-2 Score 0 0 0 0 PHQ-9 Score 0 - - - Depression screening tool completed and reviewed. Based on score and interview, patient is not at risk for depression. Screening tool discussed with patient, and I recommended no further intervention at this time. Glucose meter data or log was reviewed for the past month. Range: 155-242. Average: 223. Patient was testing daily. Higher frequency of testing needed: yes. Reason: medication adjustment, uncontrolled DM, labile blood sugars. Assessment and Plan 1. Type 2 diabetes mellitus with stage 3a chronic kidney disease, without long-term current use of insulin ([facility]) - ICD9: 250.40, 585.3, ICD10: E11.22, N18.31 (primary diagnosis) - Worsening control - Shared medical decision making was done and we agreed to increase TRULICITY. - DULAGLUTIDE 3 MG/0.5 ML SUBCUTANEOUS PEN INJECTOR - BASIC METABOLIC PNL - HGB A1C 2. Essential hypertension - ICD9: 401.9, ICD10: I10 - fair control - Continue current medication(s) - Encouraged dietary sodium restriction/DASH diet - Discussed need and benefit for weight loss. - Goal of BP <130/80 - BISOPROLOL 10 MG-HYDROCHLOROTHIAZIDE 6.25 MG TABLET - LOSARTAN 50 MG TABLET - CBC 3. Special screening for malignant neoplasms, colon - ICD9: V76.51, ICD10: Z12.11 Patient indicated understanding and willingness to follow recommendations. - COLONOSCOPY SCREENING - PEG 3350 240 GRAM-ELECTROLYTES 22.72 GRAM-6.72 G-5.84 G POWDR FOR SOLN 4. Heart murmur - ICD9: 785.2, ICD10: R01.1 Discussed possible etiology. - ECHO - PERFLUTREN LIPID MICROSPHERES 1.1 MG/ML INJECTION IN NS 10 ML - SODIUM CHLORIDE 0.9 % (FLUSH) INJECTION SYRINGE Franko Mcdaniel, [facility]03-29-2023 NoteHNO ID: [id number] Author: Cristela Ridley LPN Service: ? Author Type: ? Type: Progress Notes Filed: 06/20/2022 9:59 AM Note Text: WSTR OPEN ACCESS QUESTIONNAIRE 1. Are you currently having any new or unusual stomach/gastrointestinal issues at this time such as constipation, diarrhea, abdominal pain, rectal bleeding etc?No 2. Do you have any difficulty swallowing? No 3. Do you have any implanted devices such as a defibrillator, pacemaker, cardiac stents or deep brain stimulator? No 4. Do you take any Blood thinners such as Coumadin, Plavix, Xarelto, Eliquis, Brilinta or any other blood thinner? No 5. Do you have any new or past cardiac (heart) or pulmonary (lung) issues? No 6. Do you currently use any oxygen? No 7. Have you been hospitalized in the past 6 weeks? No 8. Have you had difficulty with anesthesia previously re: Difficult intubation? No Other difficulty or allergic reaction to anesthesia other than post op N/V? No 9. Are you on dialysis? No 10. Do you have any bleeding disorders such as hemophilia or Factor 5? No 11. Are you an Insulin Dependent Diabetic? Yes: Trulicity IF ANY OF THE TOP ELEVEN QUESTIONS ARE ANSWERED YES PLEASE SCHEDULE THE PATIENT FOR A CONSULT. advised 12. Is the patient's BMI 40 or greater? No:There is no height or weight on file to calculate BMI.. 13. Do you take any narcotics or anti-Anxiety medications? No 14. Do you use any illegal or recreational drugs including marijuana? No 15. Any alcohol use: No. 16. Have you been diagnosed with chronic liver disease such as hepatitis or cirrhosis? No 17. Do you have a seizure disorder? No 18. Do you have ulcerative colitis or Crohn's disease? No 19. Are you or could you be ? No 20. Any other important health information we should be made aware of prior to your colonoscopy? No To be completed by LIP: Did patient have MAC anesthesia with a previous endoscopy procedure? No Patient appropriate for Open Access Colonoscopy: Yes: appropriate for Open Access Procedure Checklist: Prior to closing the encounter: Complete questionnaire: Yes Confirm Prep order has been Ordered/Pended: Yes. Patient's procedure could be delayed if not given the script for the prep. Please ensure the prep is escripted to pharmacy or printed. Instructions for the prep will print upon filing or pending this smartset. Please send all open access questionnaires to [id number] Instructions* Patient Instructions* Franko Mcdaniel MD - 06/20/2022 9:43 AM EDT Health Information For Patients and the Community How to Prepare for Your Colonoscopy Using Golytely, Nulytely, Trilyte or Colyte Preparations IMPORTANT - Please Read These Instructions at Least 2 Weeks Before Your Colonoscopy Kirk Instructions: ?Your bowel must be empty so that your doctor can clearly view your colon. Follow all of the instructions in this handout EXACTLY as they are written. If you do NOT follow the directions for when to start drinking the bowel preparation (see next page), your colonoscopy WILL be cancelled. ?Do NOT eat any solid food the ENTIRE day before your colonoscopy. ?Buy your bowel preparation at least 5 days before your colonoscopy. ?Do NOT mix the solution until the day before your colonoscopy. Designated Scorer Single on the Day of Your Exam A responsible family member or friend MUST come with you to your colonoscopy and REMAIN in the endoscopy area until you are discharged! You are NOT ALLOWED to drive, take a taxi or bus, or leave the Endoscopy Center ALONE. If you do not have a responsible cement truck driver (family member or friend) with you to take you home, your exam cannot be done with sedation and will be cancelled. Medications Some of the medicines you take may need to be stopped or adjusted before your colonoscopy. You MUST call the doctor who ordered any of the following medicines at least 2 weeks before your colonoscopy. ?Blood thinners -- such as Coumadin (warfarin), Plavix (clopidogrel), Ticlid (ticlopidine hydrochloride), Agrylin (anagrelide), Xarelto (Rivaroxaban), Pradaxa (Dabigatran), Eliquis (Apixaban), and Effient (Prasugrel). ?Insulin or diabetes pills. Please call the doctor that monitors your glucose levels. Your insulin dosage may need to be adjusted due to the diet restrictions required with this bowel preparation. (Please bring your diabetes medicines with you on the day of your procedure.) If you take aspirin, take it and ALL other medications prescribed by your doctor. On the day of your colonoscopy, take your medications with a sip of water. Revised 04/2016 1 Five (5) Days Before Your Colonoscopy ?Do NOT take medicines that stop diarrhea -- such as Imodium , Kaopectate , or Pepto Bismol . ?Do NOT take fiber supplements -- such as Metamucil , Citrucel , or Perdiem . ?Do NOT take products that contain iron -- such as multi-vitamins -- (the label lists what is in the products). ?Do NOT take vitamin E. Buy the prescription bowel preparation solution at your local pharmacy or drugstore pharmacy. Three (3) Days Before Your Colonoscopy Do NOT eat high-fiber foods -- such as popcorn, beans, seeds (flax, sunflower, quinoa), multigrain bread, nuts, salad/vegetables, or fresh and dried fruit. One (1) Day Before Your Colonoscopy Only drink clear liquids the ENTIRE DAY before your colonoscopy. Do NOT eat any solid foods. Drink at least 8 ounces of clear liquids every hour after waking up. The clear liquids you can drink include: ?water, apple, or white grape juice; broth; coffee or tea (without milk or creamer); clear carbonated beverages such as lisette diandra or lemon-menominee soda; Gatorade or other sports drinks (not red); [place]-Aid or other flavored drinks (not red). You may eat plain jello or other gelatins (not red) or popsicles (not red). Do NOT drink alcohol on the day before or the day of the procedure. 2 Revised 04/2016 When to Mix and Drink Your Bowel Prep Follow the instructions on the label. After mixing, place the solution in the refrigerator for a couple of hours before drinking. You may add the flavor packet that came with the bowel preparation. DO NOT add ice, sugar or any flavorings to the solution. Evening Before Your Colonoscopy ?Start drinking the bowel preparation at 6 PM the evening before your colonoscopy. Drink an 8-oz glass of bowel preparation every 10 minutes. You must finish drinking the solution by 9 PM the night before your scheduled procedure. ?You may continue to drink clear liquids only until midnight. Do NOT eat or drink ANYTHING after midnight the night before your procedure or your procedure may be cancelled. This is for your safety and will reduce the risk of having any food or liquid in your stomach move into your lungs (aspiration) during a procedure. If you take aspirin, take it and ALL other prescribed medicines with a sip of water on the day of your colonoscopy. Contact Information: If you are unable to keep your appointment or have any questions about the instructions, please call the facility where the procedure is being performed. Call between the hours of 8:00 AM and 5:00 PM. If you are calling after 5:00 PM, please call Nurse preschool special education teacher at [phone]. [facility] [address] [place] [id number] Index # [id number] Revised 04/2016 3 Colonoscopy Procedure Overview Please Read Prior to the Procedure What is a Colonoscopy A colonoscopy is an outpatient procedure in which the inside of the large intestine (colon and rectum) is examined. A colonoscopy is commonly used to evaluate gastrointestinal symptoms, such as rectal and intestinal bleeding, abdominal pain, or changes in bowel habits. Colonoscopies are also performed in individuals without symptoms to check for colorectal polyps or cancer. A screening colonoscopy is recommended for anyone 50 years of age and older, and for anyone with parents, siblings or children with a history of colorectal cancer or polyps. What Happens Before a Colonoscopy To have a successful colonoscopy, your bowel must be empty so that your physician can clearly view the colon. To do this, it is very important to read and follow all of the instructions given to you at least 2 weeks BEFORE your exam. If your bowel is not empty, your colonoscopy will not be successful and may have to be repeated. If you feel nauseated or vomit while taking the bowel preparation, wait 30 minutes before drinking more fluid and start with small sips of solution. Some activity (such as walking) or a few soda crackers may help decrease the nausea you are feeling. If the nausea persists, please contact nurse potline monitor at [phone]. You may experience skin irritation around the anus due to the passage of liquid stools. To prevent and treat skin irritation, you should: ?Apply Vaseline or Desitin ointment to the skin around the anus before drinking the bowel preparation medications. These products can be purchased at any drugstore. ?Wipe the skin after each bowel movement with disposable wet wipes instead of toilet paper. These are found in the toilet paper area of the store. ?Sit in a bathtub filled with warm water for 10 to 15 minutes after you finish passing a stool; after soaking, blot the skin dry with a soft cloth, apply Vaseline or Desitin ointment to the anal area, and place a cotton ball just outside your anus to absorb leaking fluid. What Happens During a Colonoscopy During a colonoscopy, an experienced physician uses a colonoscope (a long, flexible instrument about 1/2 inch in diameter) to view the lining of the colon. The colonoscope is inserted into the rectumand advanced through the large intestine. If necessary during a colonoscopy, small amounts of tissue can be removed for analysis (a biopsy) and polyps can be identified and entirely removed. In many cases, a colonoscopy allows accurate diagnosis and treatment of colorectal problems without the needfor a major operation. Revised 04/2016 5 ?You are asked to wear a hospital gown and an IV will be started. ?You are given a pain reliever and a sedative intravenously (in your vein). You will feel relaxed and somewhat drowsy. ?You will lie on your left side, with your knees drawn up towards your chest. ?A small amount of air is used to expand the colon so the physician can see the colon miguel. ?You may feel mild cramping during the procedure. Cramping can be reduced by taking slow, deep breaths. ?The colonoscope is slowly withdrawn while the lining of your bowel is carefully examined. ?The procedure lasts from 30 minutes to 1 hour. What Happens After a Colonoscopy ?You will stay in a recovery room for observation until you are ready for discharge. ?You may feel some cramping or a sensation of having gas, but this quickly passes. ?If sedation has been given, a responsible family member or friend must drive you home. ?Avoid alcohol, driving, and operating machinery for 24 hours following the procedure. ?Unless otherwise instructed, you may immediately return to your normal diet. We recommend you waituntil the day after your procedure to resume normal activities. ?If polyps were removed or a biopsy was taken, the physician performing your colonoscopy will tell you when it is safe to resume taking your blood thinners. ?If a biopsy was taken or a polyp was removed, you may notice a little amount of rectal bleeding for 1 to 2 days after the procedure. If you have a large amount of rectal bleeding, high or persistentfevers, or severe abdominal pain within the next 2 weeks, please go to your local emergency room and call the physician who performed your exam. 6 Revised 04/2016 Copyright [id number] [facility]. All rights reserved. Revised 04/2016 [facility] History of Present illness Narrative* Franko Mcdaniel MD - 06/20/2022 9:19 AM EDT This note was created using [employer]. Subjective Vincenzo Bucio is a 72 year old male. His hypertension was improving but diabetes mellitus was not yet close to goal. He was taking his medications and no adverse effects were noted at this time. Review of Systems Constitutional: Negative for appetite change, fatigue and fever. Respiratory: Negative for cough, chest tightness and shortness of breath. Cardiovascular: Negative for chest pain, palpitations and leg swelling. Gastrointestinal: Negative for diarrhea, nausea and vomiting. Genitourinary: Negative. ACTIVE PROBLEM LIST Essential Tremor Type 2 Diabetes Mellitus With Stage 3a Chronic Kidney Disease, Without Long-Term Current Use of Insulin (Hcc) Hyperlipidemia, Unspecified Essential Hypertension Actinic Keratosis of Scalp Obesity, Class I, Bmi 30-34.9 Nodule of Kidney Hypertensive Kidney Disease With Stage 3a Chronic Kidney Disease (Hcc) Heart Murmur Current Outpatient Medications Medication Sig dulaglutide (TRULICITY) 1.5 mg/0.5 mL pen injector Inject 1.5 mg subcutaneously one time a week. Inject once per week. Discard Pen After losartan (COZAAR) 50 mg tablet Take 1 tablet by mouth once daily. amLODIPine (NORVASC) 2.5 mg tablet Take 1 tablet by mouth once daily. rosuvastatin (CRESTOR) 10 mg tablet Take 1 tablet by mouth every other day at bedtime. metFORMIN (GLUCOPHAGE) 1,000 mg tablet Take 1 tablet by mouth daily with breakfast. bisoprolol-hydroCHLOROthiazide (ZIAC) 10-6.25 mg per tablet Take 2 tablets by mouth once daily. Lancets lancets Test blood sugar(s) 1 times daily. Dx: Type 2 DM - Uncontrolled E11.65 Insulin: No blood sugar diagnostic (BLOOD GLUCOSE TEST) test strip Test blood sugar(s) 1 times daily. Dx: Type 2 DM - Uncontrolled E11.65 Insulin: No Multivitamin capsule Take 1 capsule by mouth once daily. No current facility-administered medications for this visit. Objective BP 135/77 (BP Site: Left Arm, BP Position: Sitting, BP Cuff Size: Large Adult) Pulse 80 Resp 18 Wt 90.7 kg (200 lb) BMI 32.28 kg/m Physical Exam Constitutional: General: He is not in acute distress. Appearance: He is not ill-appearing. Cardiovascular: Heart sounds: S1 normal and S2 normal. Murmur heard. Crescendo systolic murmur is present with a grade of 1/6. Comments: Murmur at the base. Abdominal: Palpations: Abdomen is soft. Tenderness: There is no abdominal tenderness. Musculoskeletal: Right lower leg: No edema. Left lower leg: No edema. Neurological: Mental Status: He is alert. Depression Screening 09/14/2020 09/18/2021 12/19/2021 06/20/2022 PHQ-2 Score 0 0 0 0 PHQ-9 Score 0 - - - Depression screening tool completed and reviewed. Based on score and interview, patient is not at risk for depression. Screening tool discussed with patient, and I recommended no further interventionat this time. Glucose meter data or log was reviewed for the past month. Range: 155-242. Average: 223. Patient was testing daily. Higher frequency of testing needed: yes. Reason: medication adjustment, uncontrolled DM, labile blood sugars. Assessment and Plan 1. Type 2 diabetes mellitus with stage 3a chronic kidney disease, without long- term current use of insulin (HCC) - ICD9: 250.40, 585.3, ICD10: E11.22, N18.31 (primary diagnosis) - Worsening control - Shared medical decision making was done and we agreed to increase TRULICITY. - DULAGLUTIDE 3 MG/0.5 ML SUBCUTANEOUS PEN INJECTOR - BASIC METABOLIC PNL - HGB A1C 2. Essential hypertension - ICD9: 401.9, ICD10: I10 - fair control - Continue current medication(s) - Encouraged dietary sodium restriction/DASH diet - Discussed need and benefit for weight loss. - Goal of BP <130/80 - BISOPROLOL 10 MG-HYDROCHLOROTHIAZIDE 6.25 MG TABLET - LOSARTAN 50 MG TABLET - CBC 3. Special screening for malignant neoplasms, colon - ICD9: V76.51, ICD10: Z12.11 Patient indicated understanding and willingness to follow recommendations. - COLONOSCOPY SCREENING - PEG 3350 240 GRAM-ELECTROLYTES 22.72 GRAM-6.72 G-5.84 G POWDR FOR SOLN 4. Heart murmur - ICD9: 785.2, ICD10: R01.1 Discussed possible etiology. - ECHO - PERFLUTREN LIPID MICROSPHERES 1.1 MG/ML INJECTION IN NS 10 ML - SODIUM CHLORIDE 0.9 % (FLUSH) INJECTION SYRINGE Franko Mcdaniel MD * Cristela Ridley LPN - 06/20/2022 9:06 AM EDT TR OPEN ACCESS QUESTIONNAIRE 1. Are you currently having any new or unusual stomach/gastrointestinal issues at this time such asconstipation, diarrhea, abdominal pain, rectal bleeding etc?No 2. Do you have any difficulty swallowing? No 3. Do you have any implanted devices such as a defibrillator, pacemaker, cardiac stents or deep brain stimulator? No 4. Do you take any Blood thinners such as Coumadin, Plavix, Xarelto, Eliquis, Brilinta or any otherblood thinner? No 5. Do you have any new or past cardiac (heart) or pulmonary (lung) issues? No 6. Do you currently use any oxygen? No 7. Have you been hospitalized in the past 6 weeks? No 8. Have you had difficulty with anesthesia previously re: Difficult intubation? No Other difficulty or allergic reaction to anesthesia other than post op N/V? No 9. Are you on dialysis? No 10. Do you have any bleeding disorders such as hemophilia or Factor 5? No 11. Are you an Insulin Dependent Diabetic? Yes: Trulicity IF ANY OF THE TOP ELEVEN QUESTIONS ARE ANSWERED YES PLEASE SCHEDULE THE PATIENT FOR A CONSULT. advised 12. Is the patient's BMI 40 or greater? No:There is no height or weight on file to calculate BMI.. 13. Do you take any narcotics or anti-Anxiety medications? No 14. Do you use any illegal or recreational drugs including marijuana? No 15. Any alcohol use: No. 16. Have you been diagnosed with chronic liver disease such as hepatitis or cirrhosis? No 17. Do you have a seizure disorder? No 18. Do you have ulcerative colitis or Crohn's disease? No 19. Are you or could you be ? No 20. Any other important health information we should be made aware of prior to your colonoscopy? No To be completed by LIP: Did patient have MAC anesthesia with a previous endoscopy procedure? No Patient appropriate for Open Access Colonoscopy: Yes: appropriate for Open Access Procedure Checklist: Prior to closing the encounter: Complete questionnaire: Yes Confirm Prep order has been Ordered/Pended: Yes. Patient's procedure could be delayed if not given the script for the prep. Please ensure the prep is escripted to pharmacy or printed. Instructions for the prep will print upon filing or pending thissmartset. Please send all open access questionnaires to [facility] Pool #[id number] documented [facility]* Diagnosis Type 2 diabetes mellitus with stage 3a chronic kidney disease, without long-term current use of insulin (HCC)- Primary Essential hypertension Unspecified essential hypertension Special screening for malignant neoplasms, colon Heart murmur Undiagnosed cardiac murmurs documented in this encounter [facility]02-02-[facility] Miscellaneous Notes* Telephone Encounter - Alyssa Serrato, KELLY - 04/26/2022 10:01 AM EST Telephoned the patient regarding missed appt. Left a message. 1st attempt * Telephone Encounter - Cristy Aiken [facility] - 04/26/2022 9:56 AM EST Primary Care Pharmacy Rescheduling Outreach Call center, please contact patient and reschedule in person visit for Diabetes management within ~2-6 week(s). (Visit length: 60 minutes) Thank you, Cristy Michaelmaggie [facility] 04/26/2022 9:56 AM documented in this encounterMer[facility]01-11-2023 NoteHNO ID: [id number] Author: Dino Ralph RN Service: ? Author Type: Registered Nurse Type: Progress Notes Filed: 04/04/2022 9:13 AM Note Text: DIABETES CARE AND EDUCATION VISIT Location: [place] Type of visit: In person individual PATIENT'S MAIN CONCERN TODAY: I'm not sure Support person present for education today: none Cognitive ability: Alert and oriented Motivation to learn: Interested Learning barriers identified by educator: none Method of instruction: written, verbal, and demonstration DIABETES FINDINGS: Monitoring: I haven't been checking donaldo I feel anxious when my sugar is higher than I want it to be Meal Planning: reviewed basic meal planning (30-60g carb per meal/plate method) Medications: pt states they are currently taking Trulicity and Metformin Problem Solving:hyper and hypoglycemia discussed Physical Activity: encouraged, reports he walks for 1hr a day during the spring/summer but limited activity in the winter Reducing Risks: benefits of control to avoid additional complications HANDOUTS: Healthy You: Survival Skills and Healthy You: Planning Healthy Meals LEARNING RESPONSE: Healthy eating: Demonstrated understanding/competency today or at previous visit POSSIBLE FUTURE TOPICS: 1. DIABETES CARE AND EDUCATION PLAN: Individual follow-up Time Spent (Minutes): 30 This visit note will be communicated to the healthcare provider via access to shared medical record. SIGNATURE: Dino Ralph RN PATIENT NAME: Vincenzo Bucio DATE: April 04, 2022 TIME: 8:30 AM PAGER:[facility]01-11-2023 Miscellaneous Notes* Telephone Encounter - Ann Wray Ma - 04/04/2022 10:30 AM EST PA came back saying PA not needed, did check with pharmacy and went through no issue. Patient was notified Ann Wray Ma * Telephone Encounter - Ann Wray Ma - 04/03/2022 11:56 AM EST Electronic PA submitted Ann Wray Ma * Telephone Encounter - Naty Celis Pss - 04/03/2022 10:17 AM EST Vincenzo Bucio is calling Franko Mcdaniel MD today to request Insurance Authorization (dulaglutide (TRULICITY) 1.5 mg/0.5 mL pen injector)per the pharmacy a prior authorization is needed when they tried to run this and it has just come back into stock where they can order it again. That has been the issue with getting the patient the medication. 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 They are sending authorization paperwork to the fax machine. Patient has been identified by name and birthdate. Duration of symptoms: N/A Person calling: self Call patient at: at home [phone] (home) [phone] (cell) Was an appointment scheduled: No Closing statement: Prior Authorization Calls: Thank you for calling [facility], your call will be returned within the next 24 hours or next business day. Naty Celis Pss documented in this encounterMer[facility]01-11-2023 History of Present illness Narrative* Dino Ralph RN - 04/04/2022 8:30 AM EST DIABETES CARE AND EDUCATION VISIT Location: [place] Type of visit: In person individual PATIENT'S MAIN CONCERN TODAY: I'm not sure Support person present for education today: none Cognitive ability: Alert and oriented Motivation to learn: Interested Learning barriers identified by educator: none Method of instruction: written, verbal, and demonstration DIABETES FINDINGS: Monitoring: I haven't been checking donaldo I feel anxious when my sugar is higher than I want it to be Meal Planning: reviewed basic meal planning (30-60g carb per meal/plate method) Medications: pt states they are currently taking Trulicity and Metformin Problem Solving:hyper and hypoglycemia discussed Physical Activity: encouraged, reports he walks for 1hr a day during the spring/summer but limited activity in the winter Reducing Risks: benefits of control to avoid additional complications HANDOUTS: Healthy You: Survival Skills and Healthy You: Planning Healthy Meals LEARNING RESPONSE: Healthy eating: Demonstrated understanding/competency today or at previous visit POSSIBLE FUTURE TOPICS: 1. DIABETES CARE AND EDUCATION PLAN: Individual follow-up Time Spent (Minutes): 30 This visit note will be communicated to the healthcare provider via access to shared medical record. SIGNATURE: Dino Ralph RN PATIENT NAME: Vincenzo Bucio DATE: April 04, 2022 TIME: 8:30 AM PAGER: documented in this encounterMer[facility]01-11-[facility]23 Evaluation note* Diagnosis Type 2 diabetes mellitus with stage 3a chronic kidney disease, without long-term current use of insulin (HCC)- Primary documented in this [facility]01-[facility]23 Miscellaneous Notes* Telephone Encounter - Tamie Diamond LPN - 04/02/2022 2:35 PM EST Left a detailed message with information listed below. Tamie Diamond LPN * Telephone Encounter - Briana Mcginnis APRN.CNP - 04/02/2022 2:06 PM EST Refilled 03/30/22, patient needs to call his pharmacy Briana Mcginnis APRN.CNP * Telephone Encounter - Ayan Martinez - 04/02/2022 11:14 AM ESTSummary: Medication Refill Patient has been identified by name and date of : Yes Last office visit in this department: Visit date not found RX INSTRUCTIONS: Patient aware RX will be sent to pharmacy. Please call patient when processed. Patient phones requesting refills as follows: Requested Prescriptions No prescriptions requested or ordered in this encounter Please review and advise. Ayna Martinez documented in this encounterMer[facility]01-05-2023 Miscellaneous Notes* Telephone Encounter - Jigna Olivarez LPN - 03/29/2022 1:35 PM EST Last OV 03/21/22 Next OV 06/20/22 * Telephone Encounter - Suzanna Vargas - 03/29/2022 1:05 PM EST Patient has been identified by name and date of : Yes Last office visit in this department: Visit date not found RX INSTRUCTIONS: Patient aware RX will be sent to pharmacy. No need to notify patient. Patient phones requesting refills as follows: Patient states he has no refills per pharmacy Requested Prescriptions Pending Prescriptions Disp Refills dulaglutide (TRULICITY) 1.5 mg/0.5 mL pen injector 2 mL 2 Sig: Inject 1.5 mg subcutaneously one time a week. Inject once per week. Discard Pen After Please review and advise. Suzanna Vargas documented in this encounterMer[facility]01-03-2023 Evaluation note* Diagnosis Essential hypertension- Primary Unspecified essential hypertension Type 2 diabetes mellitus with stage 3a chronic kidney disease, without long-term current use of insulin (HCC) Hyperlipidemia, unspecified hyperlipidemia type Heart murmur Undiagnosed cardiac murmurs documented in this encounter [facility]12[facility] NoteHNO ID: [id number] Author: Franko Mcdaniel MD Service: ? Author Type: Physician Type: Progress Notes Filed: 03/21/2022 9:07 AM Note Text: This note was created using [employer]. Subjective Vincenzo Bucio is a 72 year old male. He had no concerns. He started having indigestion (GERD, gas) from lisinopril a few months ago, and he wants to try a different medication. Antacids helped, but he preferred to try a different medication altogether. He was not checking his glucose and needed help with monitoring. Review of Systems Respiratory: Negative for cough, chest tightness and shortness of breath. Cardiovascular: Negative for chest pain, palpitations and leg swelling. Gastrointestinal: Negative for abdominal pain, nausea and vomiting. Genitourinary: Negative. Neurological: Negative for dizziness and headaches. ACTIVE PROBLEM LIST Essential Tremor Type 2 Diabetes Mellitus With Stage 3a Chronic Kidney Disease, Without Long-Term Current Use of Insulin (Hcc) Hyperlipidemia, Unspecified Essential Hypertension Actinic Keratosis of Scalp Obesity, Class I, Bmi 30-34.9 Nodule of Kidney Hypertensive Kidney Disease With Stage 3a Chronic Kidney Disease (Hcc) Current Outpatient Medications Medication Sig lisinopril (ZESTRIL, PRINIVIL) 20 mg tablet Take 1 tablet by mouth once daily. dulaglutide (TRULICITY) 1.5 mg/0.5 mL pen injector Inject 1.5 mg subcutaneously one time a week. Inject once per week. Discard Pen After amLODIPine (NORVASC) 2.5 mg tablet Take 1 tablet by mouth once daily. rosuvastatin (CRESTOR) 10 mg tablet Take 1 tablet by mouth every other day at bedtime. metFORMIN (GLUCOPHAGE) 1,000 mg tablet Take 1 tablet by mouth daily with breakfast. bisoprolol-hydroCHLOROthiazide (ZIAC) 10-6.25 mg per tablet Take 2 tablets by mouth once daily. Lancets lancets Test blood sugar(s) 1 times daily. Dx: Type 2 DM - Uncontrolled E11.65 Insulin: No blood sugar diagnostic (BLOOD GLUCOSE TEST) test strip Test blood sugar(s) 1 times daily. Dx: Type 2 DM - Uncontrolled E11.65 Insulin: No Multivitamin capsule Take 1 capsule by mouth once daily. No current facility-administered medications for this visit. Objective BP 158/84 (BP Site: Left Arm, BP Position: Sitting, BP Cuff Size: Large Adult) Pulse 81 Temp 36.7 ?C (98 ?F) (Temporal) Resp 16 Wt 92.1 kg (203 lb) BMI 32.77 kg/m? Physical Exam Constitutional: General: He is not in acute distress. Appearance: He is not ill-appearing. Cardiovascular: Rate and Rhythm: Normal rate and regular rhythm. Heart sounds: Murmur heard. Systolic murmur is present with a grade of 1/6. Comments: Base. Pulmonary: Breath sounds: Normal breath sounds. Musculoskeletal: Right lower leg: No edema. Left lower leg: No edema. Neurological: Mental Status: He is alert. Gait: Gait normal. Assessment and Plan 1. Essential hypertension - ICD9: 401.9, ICD10: I10 (primary diagnosis) - suboptimal control Shared medical decision making was done. His sister was on losartan and he was interested in switching from lisinopril which he had been on for several years. Discussed medication dosage, usage, goals of therapy, and side effects. - LOSARTAN 50 MG TABLET - REFER BACK TO PCP FOR DM TYPE 2 MAINT - CONSULT TO PHARMACY - Continue amlodipine. 2. Type 2 diabetes mellitus with stage 3a chronic kidney disease, without long-term current use of insulin (HCC) - ICD9: 250.40, 585.3, ICD10: E11.22, N18.31 Poor adherence to plan of care. - Continue current medications - BASIC METABOLIC PNL - HGB A1C - CONSULT TO INTM NURSE DIABETES - CONSULT TO DIABETES EDUCATION - REFER BACK TO PCP FOR DM TYPE 2 MAINT - CONSULT TO PHARMACY 3. Hyperlipidemia, unspecified hyperlipidemia type - ICD9: 272.4, ICD10: E78.5 - to be determined upon return of lab results 4. Heart murmur - ICD9: 785.2, ICD10: R01.1 I reviewed records and this is a new finding. Patient asymptomatic. Etiology and significance TBD. Reexamine and discuss at next follow up. Franko Mcdaniel [facility]12-28-2022 Instructions* Patient Instructions* Franko Mcdaniel MD - 03/21/2022 8:48 AM EST TELL LAB TO RUN ALL FASTING LAB ORDERS. documented in this encounterMer[facility]12-28-2022 History of Present illness Narrative* Franko Mcdaniel MD - 03/21/2022 8:29 AM EST This note was created using [employer]. Subjective Vincenzo Bucio is a 72 year old male. He had no concerns. He started having indigestion (GERD, gas) from lisinopril a few months ago, and he wants to try a different medication. Antacids helped, but he preferred to try a different medication altogether. He was not checking his glucose and needed help with monitoring. Review of Systems Respiratory: Negative for cough, chest tightness and shortness of breath. Cardiovascular: Negative for chest pain, palpitations and leg swelling. Gastrointestinal: Negative for abdominal pain, nausea and vomiting. Genitourinary: Negative. Neurological: Negative for dizziness and headaches. ACTIVE PROBLEM LIST Essential Tremor Type 2 Diabetes Mellitus With Stage 3a Chronic Kidney Disease, Without Long-Term Current Use of Insulin (Hcc) Hyperlipidemia, Unspecified Essential Hypertension Actinic Keratosis of Scalp Obesity, Class I, Bmi 30-34.9 Nodule of Kidney Hypertensive Kidney Disease With Stage 3a Chronic Kidney Disease (Hcc) Current Outpatient Medications Medication Sig lisinopril (ZESTRIL, PRINIVIL) 20 mg tablet Take 1 tablet by mouth once daily. dulaglutide (TRULICITY) 1.5 mg/0.5 mL pen injector Inject 1.5 mg subcutaneously one time a week. Inject once per week. Discard Pen After amLODIPine (NORVASC) 2.5 mg tablet Take 1 tablet by mouth once daily. rosuvastatin (CRESTOR) 10 mg tablet Take 1 tablet by mouth every other day at bedtime. metFORMIN (GLUCOPHAGE) 1,000 mg tablet Take 1 tablet by mouth daily with breakfast. bisoprolol-hydroCHLOROthiazide (ZIAC) 10-6.25 mg per tablet Take 2 tablets by mouth once daily. Lancets lancets Test blood sugar(s) 1 times daily. Dx: Type 2 DM - Uncontrolled E11.65 Insulin: No blood sugar diagnostic (BLOOD GLUCOSE TEST) test strip Test blood sugar(s) 1 times daily. Dx: Type 2 DM - Uncontrolled E11.65 Insulin: No Multivitamin capsule Take 1 capsule by mouth once daily. No current facility-administered medications for this visit. Objective BP 158/84 (BP Site: Left Arm, BP Position: Sitting, BP Cuff Size: Large Adult) Pulse 81 Temp 36.7 C (98 F) (Temporal) Resp 16 Wt 92.1 kg (203 lb) BMI 32.77 kg/m Physical Exam Constitutional: General: He is not in acute distress. Appearance: He is not ill-appearing. Cardiovascular: Rate and Rhythm: Normal rate and regular rhythm. Heart sounds: Murmur heard. Systolic murmur is present with a grade of 1/6. Comments: Base. Pulmonary: Breath sounds: Normal breath sounds. Musculoskeletal: Right lower leg: No edema. Left lower leg: No edema. Neurological: Mental Status: He is alert. Gait: Gait normal. Assessment and Plan 1. Essential hypertension - ICD9: 401.9, ICD10: I10 (primary diagnosis) - suboptimal control Shared medical decision making was done. His sister was on losartan and he was interested in switching from lisinopril which he had been on for several years. Discussed medication dosage, usage, goals of therapy, and side effects. - LOSARTAN 50 MG TABLET - REFER BACK TO PCP FOR DM TYPE 2 MAINT - CONSULT TO PHARMACY - Continue amlodipine. 2. Type 2 diabetes mellitus with stage 3a chronic kidney disease, without long- term current use of insulin (HCC) - ICD9: 250.40, 585.3, ICD10: E11.22, N18.31 Poor adherence to plan of care. - Continue current medications - BASIC METABOLIC PNL - HGB A1C - CONSULT TO INTM NURSE DIABETES - CONSULT TO DIABETES EDUCATION - REFER BACK TO PCP FOR DM TYPE 2 MAINT - CONSULT TO PHARMACY 3. Hyperlipidemia, unspecified hyperlipidemia type - ICD9: 272.4, ICD10: E78.5 - to be determined upon return of lab results 4. Heart murmur - ICD9: 785.2, ICD10: R01.1 I reviewed records and this is a new finding. Patient asymptomatic. Etiology and significance TBD. Reexamine and discuss at next follow up. Franko Mcdaniel MD documented in this encounterMer[facility]10-14-[facility]22 Miscellaneous Notes* Telephone Encounter - Minerva Curran LPN - 01/05/2022 2:30 PM EDT Patient has been identified by name and date of : Yes Pharmacy phones for refill(s): Requested Prescriptions Pending Prescriptions Disp Refills lisinopril (ZESTRIL, PRINIVIL) 20 mg tablet 90 tablet 1 Sig: Take 1 tablet by mouth once daily. Date of last office visit in primary care: 12/19/21 Last 2 Encounter Wt Readings: Date: Wt: 12/19/2021 91.2 kg (201 lb) 09/18/2021 87.1 kg (192 lb) Previous labs/tests for medication: Not applicable Please advise. Thank you. Minerva Curran LPN documented in this encounterMer[facility]10-06-2022 Evaluation note* Diagnosis Type 2 diabetes mellitus with stage 3a chronic kidney disease, without long-term current use of insulin (HCC)- Primary [facility] Miscellaneous Notes* Telephone Encounter - Stoney Galaviz RN - 12/25/2021 12:54 PM EDT Patient returned call and given provider's message below with verbalized understanding. Patient agreeable. * Telephone Encounter - Arlyn Linda Ma - 12/25/2021 10:17 AM EDT Left message for patient to call office * Telephone Encounter - Briana Mcginnis APRN.CNP - 12/25/2021 9:53 AM EDT Please let the patient know his HgbA1c was 9.0, previous was 9.7. there has been improvement but still not at goal of < 7. Recommend increasing Trulicity to 1.5 mg weekly, he can finish out current prescription and then start the higher dose. Potassium was a little elevated, recheck sometime this week or next Briana Mcginnis APRN.CNP documented in this encounterMercy [facility]09-27-2022 NoteHNO ID: [id number] Author: Briana Mcginnis APRN.CNP Service: ? Author Type: Nurse Practitioner Type: Progress Notes Filed: 12/19/2021 11:47 AM Note Text: CC: Patient presents with: F/U Diabetes 3 Month HPI Vincenzo Bucio is a 71 year old male who presents today for above. Diabetes: Started on Trulicity and Januvia discontinued at last visit 3 months ago. Patient reports he had issues with injecting the first 3 doses but okay after that. Denies side effects. Does not check blood sugars at home, makes him too anxious Hypoglycemia: No He is compliant with medication(s) and is tolerating med(s) without any side effects. Denies increased thirst, urinary frequency, nocturia, fatigue, unintentional weight loss, blurred vision, numbness, tingling or pain in extremities, ulcers or sores on feet Patient's last HgA1C was Hemoglobin A1C (%) Date Value 06/15/2021 9.7 12/16/2020 7.5 09/14/2020 8.6 REVIEW OF SYSTEMS See HPI PAST MEDICAL HISTORY Diagnosis Date Adult body mass index 30+ Anogenital warts Bilateral cataracts Corns and callus COVID-19 12/05/2020 minimal symptoms Essential hypertension 2000 Essential tremor 2014 Hemorrhoids Hyperlipidemia, unspecified 01/03/2016 Nodule of kidney 05/05/2020 Dr. Najma Smith, nephrology. Noncompliance with treatment Plantar fasciitis Polyp of colon Tinea corporis Type 2 diabetes mellitus (HCC) 2000 PAST SURGICAL HISTORY Procedure Laterality Date COLONOSCOPY 09/12/2015 Dr. Colmenares. No polyps, repeat in 7 years. 2019. PAST SURGICAL HISTORY OF 05/29/2021 Removed Right Cataract PAST SURGICAL HISTORY OF 11/27/2018 Removed Left Cataract ALLERGIES Patient has no known allergies. MEDICATIONS dulaglutide (TRULICITY) 0.75 mg/0.5 mL pen injector Inject 0.75 mg subcutaneously one time a week. metFORMIN (GLUCOPHAGE) 1,000 mg tablet Take 1 tablet by mouth daily with breakfast. bisoprolol-hydroCHLOROthiazide (ZIAC) 10-6.25 mg per tablet Take 2 tablets by mouth once daily. amLODIPine (NORVASC) 2.5 mg tablet Take 1 tablet by mouth once daily. Lancets lancets Test blood sugar(s) 1 times daily. Dx: Type 2 DM - Uncontrolled E11.65 Insulin: No blood sugar diagnostic (BLOOD GLUCOSE TEST) test strip Test blood sugar(s) 1 times daily. Dx: Type 2 DM - Uncontrolled E11.65 Insulin: No lisinopril (ZESTRIL, PRINIVIL) 20 mg tablet Take 1 tablet by mouth once daily. Multivitamin capsule Take 1 capsule by mouth once daily. rosuvastatin (CRESTOR) 10 mg tablet Take 1 tablet by mouth every other day at bedtime. (Patient not taking: Reported on 12/19/2021) FAMILY HISTORY Problem Relation Age of Onset other (HTN) Brother Cancer Brother liver cancer other (Renal Failure) Brother Breast Cancer Sister other (Melanoma) Sister other (Other) Father Social History Tobacco Use Smoking status: Never Smokeless tobacco: Never Substance Use Topics Alcohol use: No Drug use: No PHYSICAL EXAM BP 134/86 Pulse 75 Wt 91.2 kg (201 lb) SpO2 97% BMI 32.44 kg/m? General Appearance: well appearing, in no acute distress, alert Lungs: Lungs clear to auscultation. No wheezing, rhonchi, rales. Heart: RRR without murmur, gallop, or rubs. No ectopy Health maintenance reviewed with patient: DEPRESSION ASSESSMENT Never done COVID-19 VACCINE(4 - Booster for Moderna series) due on 11/13/2021 HBA1C due on 12/19/2021 INFLUENZA(1) due on 11/23/2021 DTAP,TDAP,TD(1 - Tdap) due on 09/18/2022 SHINGRIX VACCINE(1 of 2) due on 09/18/2022 LDL CHOLESTEROL due on 06/15/2022 HEMOGLOBIN/HEMATOCRIT due on 06/15/2022 SERUM CREATININE due on 06/27/2022 COLORECTAL CANCER SCREENING due on 08/23/2022 URINE ALBUMIN:CREATININE RATIO due on 09/04/2022 DIABETIC FOOT EXAM due on 09/18/2022 ANNUAL PCP TEAM CHRONIC DISEASE VISIT due on 09/18/2022 BP CONTROLLED (<130/80) due on 09/18/2022 DILATED RETINAL EXAM due on 12/08/2022 HEPATITIS C SCREENING Completed PNEUMOCOCCAL: 65+ Completed ADVANCE DIRECTIVE DISCUSSION Discontinued DATA REVIEWED: Most recent labs ASSESSMENT/PLAN: 1. Type 2 diabetes mellitus with stage 3a chronic kidney disease, without long-term current use of insulin (HCC) - ICD9: 250.40, 585.3, ICD10: E11.22, N18.31 (primary diagnosis) Worsening control indicated by last HgbA1c in May. Does not check blood sugars at home, declined to start - Continue current medications - Check HgA1C - eGFR: Stable - Albuminuria: Yes < 30 mg/g - Statin therapy: see #4 - ACEi/ARB prescribed: Yes - SGLT2i prescribed: No, cost too high - Following with nephrology: Not at this time. Patient states medical insurance clerk told him he didn't need to follow-up any more - Counseled on avoiding regular use of NSAIDs, adequate hydration, potential risk of IV dye - Recommend maintaining A1c < 7% - Recommend maintaining blood pressure under 130/80 - Labs ordered: - HGB A1C - COMP METABOLIC PANEL 2. Essential hypertension - ICD (more content not included)...[facility]09-27-2022 Instructions* Patient Instructions* Briana Mcginnis APRN.CNP - 12/19/2021 9:57 AM EDT Start taking cholesterol medication rosuvastatin (Crestor), take 10 mg at bedtime. We will need to recheck your cholesterol in 3 months. Start taking amlodipine 2.5 mg daily in addition to Lisinopril and Bisoprolol-hydrochlorothiazide documented in this encounter[facility] History of Present illness Narrative* Briana Mcginnis APRN.CNP - 12/19/2021 9:46 AM EDT CC: Patient presents with: F/U Diabetes 3 Month HPI Vincenzo Bucio is a 71 year old male who presents today for above. Diabetes: Started on Trulicity and Januvia discontinued at last visit 3 months ago. Patient reportshe had issues with injecting the first 3 doses but okay after that. Denies side effects. Does not check blood sugars at home, makes him too anxious Hypoglycemia: No He is compliant with medication(s) and is tolerating med(s) without any side effects. Denies increased thirst, urinary frequency, nocturia, fatigue, unintentional weight loss, blurred vision, numbness, tingling or pain in extremities, ulcers or sores on feet Patient's last HgA1C was Hemoglobin A1C (%) Date Value 06/15/2021 9.7 12/16/2020 7.5 09/14/2020 8.6 REVIEW OF SYSTEMS See HPI PAST MEDICAL HISTORY Diagnosis Date Adult body mass index 30+ Anogenital warts Bilateral cataracts Corns and callus COVID-19 12/05/2020 minimal symptoms Essential hypertension 1999 Essential tremor 2013 Hemorrhoids Hyperlipidemia, unspecified 01/03/2016 Nodule of kidney 05/05/2020 Dr. Najma Smith, nephrology. Noncompliance with treatment Plantar fasciitis Polyp of colon Tinea corporis Type 2 diabetes mellitus (HCC) 1999 PAST SURGICAL HISTORY Procedure Laterality Date COLONOSCOPY 09/12/2015 Dr. Colmenares. No polyps, repeat in 7 years. 2019. PAST SURGICAL HISTORY OF 05/29/2021 Removed Right Cataract PAST SURGICAL HISTORY OF 11/27/2018 Removed Left Cataract ALLERGIES Patient has no known allergies. MEDICATIONS dulaglutide (TRULICITY) 0.75 mg/0.5 mL pen injector Inject 0.75 mg subcutaneously one time a week. metFORMIN (GLUCOPHAGE) 1,000 mg tablet Take 1 tablet by mouth daily with breakfast. bisoprolol-hydroCHLOROthiazide (ZIAC) 10-6.25 mg per tablet Take 2 tablets by mouth once daily. amLODIPine (NORVASC) 2.5 mg tablet Take 1 tablet by mouth once daily. Lancets lancets Test blood sugar(s) 1 times daily. Dx: Type 2 DM - Uncontrolled E11.65 Insulin: No blood sugar diagnostic (BLOOD GLUCOSE TEST) test strip Test blood sugar(s) 1 times daily. Dx: Type 2 DM - Uncontrolled E11.65 Insulin: No lisinopril (ZESTRIL, PRINIVIL) 20 mg tablet Take 1 tablet by mouth once daily. Multivitamin capsule Take 1 capsule by mouth once daily. rosuvastatin (CRESTOR) 10 mg tablet Take 1 tablet by mouth every other day at bedtime. (Patient nottaking: Reported on 12/19/2021) FAMILY HISTORY Problem Relation Age of Onset other (HTN) Brother Cancer Brother liver cancer other (Renal Failure) Brother Breast Cancer Sister other (Melanoma) Sister other (Other) Father Social History Tobacco Use Smoking status: Never Smokeless tobacco: Never Substance Use Topics Alcohol use: No Drug use: No PHYSICAL EXAM BP 134/86 Pulse 75 Wt 91.2 kg (201 lb) SpO2 97% BMI 32.44 kg/m General Appearance: well appearing, in no acute distress, alert Lungs: Lungs clear to auscultation. No wheezing, rhonchi, rales. Heart: RRR without murmur, gallop, or rubs. No ectopy Health maintenance reviewed with patient: DEPRESSION ASSESSMENT Never done COVID-19 VACCINE(4 - Booster for Moderna series) due on 11/13/2021 HBA1C due on 12/19/2021 INFLUENZA(1) due on 11/23/2021 DTAP,TDAP,TD(1 - Tdap) due on 09/18/2022 SHINGRIX VACCINE(1 of 2) due on 09/18/2022 LDL CHOLESTEROL due on 06/15/2022 HEMOGLOBIN/HEMATOCRIT due on 06/15/2022 SERUM CREATININE due on 06/27/2022 COLORECTAL CANCER SCREENING due on 08/23/2022 URINE ALBUMIN:CREATININE RATIO due on 09/04/2022 DIABETIC FOOT EXAM due on 09/18/2022 ANNUAL PCP TEAM CHRONIC DISEASE VISIT due on 09/18/2022 BP CONTROLLED (<130/80) due on 09/18/2022 DILATED RETINAL EXAM due on 12/08/2022 HEPATITIS C SCREENING Completed PNEUMOCOCCAL: 65+ Completed ADVANCE DIRECTIVE DISCUSSION Discontinued DATA REVIEWED: Most recent labs ASSESSMENT/PLAN: 1. Type 2 diabetes mellitus with stage 3a chronic kidney disease, without long- term current use of insulin (HCC) - ICD9: 250.40, 585.3, ICD10: E11.22, N18.31 (primary diagnosis) Worsening control indicated by last HgbA1c in May. Does not check blood sugars at home, declined to start - Continue current medications - Check HgA1C - eGFR: Stable - Albuminuria: Yes < 30 mg/g - Statin therapy: see #4 - ACEi/ARB prescribed: Yes - SGLT2i prescribed: No, cost too high - Following with nephrology: Not at this time. Patient states medical insurance clerk told him he didn't need to follow-up any more - Counseled on avoiding regular use of NSAIDs, adequate hydration, potential risk of IV dye - Recommend maintaining A1c < 7% - Recommend maintaining blood pressure under 130/80 - Labs ordered: - HGB A1C - COMP METABOLIC PANEL 2. Essential hypertension - ICD9: 401.9, ICD10: I10 - fair control - Continue current medication(s). Patient has not been taking Norvasc 2.5 mg daily for reasons unknown. Recommend he start now, he is agreeable. - Recommended regular aerobic exercise. - Recommend home blood pressure monitoring, to bring results in on next visit - Goal of BP <130/80 3. Obesity, Class I, BMI 30-34.9 - ICD9: 278.00, ICD10: E66.9 Weight increasing Continue with Trulicity 4. Hyperlipidemia, unspecified hyperlipidemia type - ICD9: 272.4, ICD10: E78.5 Poor control. Recommend at last visit he restart Crestor but at lower dose due to previous intolerance. Patient states he never started, doesn't have a specific reason why. Encouraged patient to start taking right away and recheck lipids in 3 months. He is agreeable. Prescription instructions reviewed with patient as applicable. Potential red flag symptoms discussed with the patient. Reviewed appropriate action plan to take if red flag symptoms occur. Patient agreeable to treatment plan. Briana Mcginnis APRN.CNP documented in this encounterMer[facility]09-21-[facility]22 NoteHNO ID: [id number] Author: Pretty Vargas Service: ? Author Type: ? Type: Progress Notes Filed: 12/28/2021 7:17 AM Note Text: POPULATION HEALTH NAVIGATION OUTREACH Action/FYI: [employer] Care Gaps 12/13/21 Discuss/Due: ~HgBA1C ~Flu vaccine *HgBA1C order pending, sent to PCP to review and advise Pt identified by name and : NO Did you use a PCP flex slot to schedule this appointment? N/A Reason for Outreach Care Gap or Scheduling/Wellness visits Payer: Payor: [employer] MEDICARE / Plan: [employer] MEDICARE PPO / Product Type: PPO / Care Gap Reviewed:: HBA1C Flu vaccine Reminder: Reminder note to check Health Maintenance for items below Health Maintenance items due: COVID-19 VACCINE(4 - Booster for Moderna series) due on 11/13/2021 INFLUENZA(1) due on 11/23/2021 Message Sent to Practice: Yes Navigation Signature: Pretty Rodriguez Population Health Navigator December 13, 2021 2:55 [facility]09-21-2022 History of Present illness Narrative* Pretty Vargas - 12/13/2021 2:55 PM EDT POPULATION HEALTH NAVIGATION OUTREACH Action/FYI: [employer] Care Gaps 12/13/21 Discuss/Due: ~HgBA1C ~Flu vaccine *HgBA1C order pending, sent to PCP to review and advise Pt identified by name and : NO Did you use a PCP flex slot to schedule this appointment? N/A Reason for Outreach Care Gap or Scheduling/Wellness visits Payer: Payor: AET MEDICARE / Plan: AET MEDICARE PPO / Product Type: PPO / Care Gap Reviewed:: HBA1C Flu vaccine Reminder: Reminder note to check Health Maintenance for items below Health Maintenance items due: COVID-19 VACCINE(4 - Booster for Moderna series) due on 11/13/2021 INFLUENZA(1) due on 11/23/2021 Message Sent to Practice: Yes Navigation Signature: Pretty Rodriguez Population Health Navigator December 13, 2021 2:55 PM documented in this encounterMer[facility]09-21-2022 NotePatient Outreach (NETNAV) VINCENZO BUCIO ([id number]) 1950 M Date Time Provider Department 12/13/21 PRETTY RODRIGUEZ) GRECIAV During your visit today, we recorded the following information about you: Pretty Vargas 12/28/2021 7:17 AM Signed POPULATION HEALTH NAVIGATION OUTREACH Action/FYI: [employer] Care Gaps 12/13/21 Discuss/Due: ~HgBA1C ~Flu vaccine *HgBA1C order pending, sent to PCP to review and advise Pt identified by name and : NO Did you use a PCP flex slot to schedule this appointment? N/A Reason for Outreach Care Gap or Scheduling/Wellness visits Payer: Payor: [employer] MEDICARE / Plan: [employer] MEDICARE PPO / Product Type: PPO / Care Gap Reviewed:: HBA1C Flu vaccine Reminder: Reminder note to check Health Maintenance for items below Health Maintenance items due: COVID-19 VACCINE(4 - Booster for Moderna series) due on 11/13/2021 INFLUENZA(1) due on 11/23/2021 Message Sent to Practice: Yes Navigation Signature: Pretty Rodriguez Population Health Navigator December 13, 2021 2:55 PM Allergies As of Date: 12/13/2021 (No Known Allergies) Date Reviewed: 09/18/2021 Reviewed by: Hong Collier Ma - Fully Assessed Reason for Visit: Population Health Navigation Outreach [[id number]] Cmt: [employer] Care Gaps Primary Visit Diagnosis:Type 2 diabetes mellitus with stage 3a chronic kidney disease, without long-term current use of insulin (HCC) [E11.22, N18.31] Prescriptions as of 12/28/2021 - dulaglutide (TRULICITY) 1.5 mg/0.5 mL pen injector Inject 1.5 mg subcutaneously one time a week. Inject once per week. Discard Pen After - amLODIPine (NORVASC) 2.5 mg tablet Take 1 tablet by mouth once daily. - rosuvastatin (CRESTOR) 10 mg tablet Take 1 tablet by mouth every other day at bedtime. - metFORMIN (GLUCOPHAGE) 1,000 mg tablet Take 1 tablet by mouth daily with breakfast. - bisoprolol-hydroCHLOROthiazide (ZIAC) 10-6.25 mg per tablet Take 2 tablets by mouth once daily. - Lancets lancets Test blood sugar(s) 1 times daily. Dx: Type 2 DM - Uncontrolled E11.65 Insulin: No - blood sugar diagnostic (BLOOD GLUCOSE TEST) test strip Test blood sugar(s) 1 times daily. Dx: Type 2 DM - Uncontrolled E11.65 Insulin: No - lisinopril (ZESTRIL, PRINIVIL) 20 mg tablet Take 1 tablet by mouth once daily. - Multivitamin capsule Take 1 capsule by mouth once daily. Problem List As Of Date 12/13/2021 Noted Resolved Anogenital warts [A63.0] 12/27/2016 Essential tremor [G25.0] Type 2 diabetes mellitus with stage 3a chronic * Obesity (BMI 30-39.9) [E66.9] 05/05/2018 Hyperlipidemia, unspecified [E78.5] 01/03/2016 Frequency of micturition [R35.0] 01/03/2016 12/27/2016 Essential hypertension [I10] 03/25/1999 Actinic keratosis of scalp [L57.0] 12/27/2016 Kidney insufficiency [N28.9] 10/10/2017 05/05/2020 Obesity, Class I, BMI 30-34.9 [E66.9] 05/05/2018 Nodule of kidney [N28.89] 05/05/2020 Hypertensive kidney disease with stage 3a chron*06/13/2021 Encounter Status:Closed by PERTTY FRAZIER on 12/28/21[facility] Miscellaneous Notes* Telephone Encounter - Masha Randhawa Pss - 12/08/2021 9:49 AM EDT Vincenzo is calling for refills. The metformin was sent to [facility], but although the charge shows up on his credit card he has not received the meds. He would like his medications sent to the local [place] pharmacy for now. Patient advised to notify his insurance (he has already spoken to [facility] with no help). Patient will call to notify reason for change in pharmacy. * Telephone Encounter - Masha Vargas - 12/08/2021 9:47 AM EDT Pharmacy verified in [facility] Patient has been identified by name and date of : Yes Patient aware RX will be sent to pharmacy. No need to notify patient. Patient phones for refill(s): Requested Prescriptions Pending Prescriptions Disp Refills dulaglutide (TRULICITY) 0.75 mg/0.5 mL pen injector 2 mL 0 Sig: Inject 0.75 mg subcutaneously one time a week. metFORMIN (GLUCOPHAGE) 1,000 mg tablet 90 tablet 3 Sig: Take 1 tablet by mouth daily with breakfast. Date of last office visit : 09/18/2021 Date of next office visit : 12/19/2021 Last 2 Encounter Wt Readings: Date: Wt: 09/18/2021 87.1 kg (192 lb) 06/15/2021 90.7 kg (200 lb) Please advise. Masha Randhawa Pss documented in this encounterMercy Health [facility]08-19-2022 Miscellaneous Notes* Telephone Encounter - Stacia Mars LPN - 11/10/2021 10:13 AM EDT PATIENT NOTIFIED OF SAME. Patient states that he did stop the Januvia as planned. * Telephone Encounter - Briana Mcginnis APRN.CNP - 11/10/2021 10:04 AM EDT Please remind patient he was to stop the Januvia once he started Trulicity Briana Mcginnis APRN.OMARI * Telephone Encounter - Cristela Ridley LPN - 11/09/2021 2:21 PM EDT Date of last office visit in primary care: 09/18/2021 6 month follow-up: 12/19/2021 Last 2 Encounter Wt Readings: Date: Wt: 09/18/2021 87.1 kg (192 lb) 06/15/2021 90.7 kg (200 lb) Previous labs/tests for medication: Diabetes: Hemoglobin A1C (%) Date Value 06/15/2021 9.7 12/16/2020 7.5 09/14/2020 8.6 Please advise. Thank you. Cristela Ridley LPN * Telephone Encounter - Radha Reyes Pss - 11/09/2021 1:54 PM EDT Patient has been identified by name and date of : Yes Requested Prescriptions Pending Prescriptions Disp Refills dulaglutide (TRULICITY) 0.75 mg/0.5 mL pen injector 2 mL 0 Sig: Inject 0.75 mg subcutaneously one time a week. RX INSTRUCTIONS: Patient wants to confirm the doctor still wants him to continue with this medication. Please call. Patient aware RX will be sent to pharmacy. Radha Reyes Pss documented in this encounterMercy [facility]07-08-2022 Miscellaneous Notes* Telephone Encounter - Claudia Longoria LPN - 09/29/2021 3:42 PM EDT Can you send this again? * Telephone Encounter - Masha Randhawa Pss - 09/28/2021 10:50 AM EDT Patient states [facility] is telling him we did not send the script for his metformin. Patient currently has enough for a while, but wanted to insure that [facility] was [facility]. Patient would like us to make sure [facility] received the script. documented in this encounterMercy [facility]06-27-2022 Instructions* Patient Instructions* Briana Mcginnis APRN.CNP - 09/18/2021 9:40 AM EDT For diabetes: start Trulicity injectable once a week, take on the same day of the week consistently. Once you start Trulicity please discontinue sitagliptin (Januvia). 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 Write the numbers down and bring to your next appointment documented in this encounterMercy Health [facility]06-27-2022 History of Present illness Narrative* Briana Older, MOVIE THEATER USHER.OMARI - 09/18/2021 9:22 AM EDT CC: Patient presents with: F/U 3 Month HPI Vincenzo Bucio is a 71 year old male who presents today for above. Diabetes: HgbA1c worse 3 months ago, diabetes not well controlled. No medication changes made per patient request Home blood sugar readings: does not have meter Hypoglycemia: No He is compliant with medication(s) and is tolerating med(s) without any side effects. Denies increased thirst, urinary frequency, nocturia, fatigue, unintentional weight loss, blurred vision, numbness, tingling or pain in extremities, ulcers or sores on feet Patient's last HgA1C was Hemoglobin A1C (%) Date Value 06/15/2021 9.7 12/16/2020 7.5 09/14/2020 8.6 HTN-Medication changes:Yes patient was instructed on 06/16 to stop Lisinopril due to worsening kidney function and potassium 6.0. He was started on Norvasc 2.5 mg at that time. Today patient reports he is actually still taking Lisinopril, didn't realize he was supposed to stop. He had blood work done 06/27 that showed improving kidney function and normal potassium. He is established with medical insurance clerk at [facility], labs done last week. He still needs to reschedule follow-up with her. Taking all medications as prescribed: Yes Side effects: No Home BP's: No Denies: headache, chest pain, palpitations, dyspnea and peripheral edema. Last 3 Encounter BP Readings: Date: BP: 09/18/2021 116/72 06/15/2021 153/80 02/15/2021 132/72 REVIEW OF SYSTEMS See HPI PAST MEDICAL HISTORY Diagnosis Date Adult body mass index 30+ Anogenital warts Bilateral cataracts Corns and callus COVID-19 12/05/2020 minimal symptoms Essential hypertension 2000 Essential tremor 2014 Hemorrhoids Hyperlipidemia, unspecified 01/03/2016 Nodule of kidney 05/05/2020 Dr. Najma Smith, nephrology. Noncompliance with treatment Plantar fasciitis Polyp of colon Tinea corporis Type 2 diabetes mellitus (HCC) 1999 PAST SURGICAL HISTORY Procedure Laterality Date COLONOSCOPY 09/12/2015 Dr. Colmenares. No polyps, repeat in 7 years. 2019. PAST SURGICAL HISTORY OF 05/29/2021 Removed Right Cataract PAST SURGICAL HISTORY OF 11/27/2018 Removed Left Cataract ALLERGIES Patient has no known allergies. MEDICATIONS amLODIPine (NORVASC) 2.5 mg tablet Take 1 tablet by mouth once daily. SITagliptin (JANUVIA) 100 mg tablet Take 1 tablet by mouth once daily. bisoprolol-hydroCHLOROthiazide (ZIAC) 10-6.25 mg per tablet Take 2 tablets by mouth once daily. metFORMIN (GLUCOPHAGE) 1,000 mg tablet Take 1 tablet by mouth daily with breakfast. rosuvastatin (CRESTOR) 10 mg tablet Take 1 tablet by mouth daily at bedtime. blood sugar diagnostic (BLOOD GLUCOSE TEST) test strip Test blood sugar(s) 2 times daily. Dx: Type 2 DM - Uncontrolled E11.65 Insulin: No Multivitamin capsule Take 1 capsule by mouth once daily. FAMILY HISTORY Problem Relation Age of Onset other (HTN) Brother Cancer Brother liver cancer other (Renal Failure) Brother Breast Cancer Sister other (Melanoma) Sister other (Other) Father Social History Tobacco Use Smoking status: Never Smoker Smokeless tobacco: Never Used Substance Use Topics Alcohol use: No Drug use: No PHYSICAL EXAM BP 134/74 Pulse 78 Resp 16 Wt 87.1 kg (192 lb) BMI 30.99 kg/m General Appearance: well appearing, in no acute distress, alert Lungs: Lungs clear to auscultation. No wheezing, rhonchi, rales. Heart: RRR without murmur, gallop, or rubs. No ectopy Feet:Shoes and socks removed, No deformities, ulcers, calluses, normal distal pulses, sensitive to 10 gm monofilament and vibratory perception normal Health maintenance reviewed with patient: BP CONTROLLED (<130/80) Never done DTAP,TDAP,TD(1 - Tdap) Never done SHINGRIX VACCINE(1 of 2) Never done DEPRESSION SCREENING due on 09/14/2021 HBA1C due on 09/15/2021 DIABETIC FOOT EXAM due on 09/14/2021 COVID-19 VACCINE(3 - Booster for Moderna series) due on 09/18/2022 URINE ALBUMIN:CREATININE RATIO due on 02/22/2022 DILATED RETINAL EXAM due on 04/19/2022 LDL CHOLESTEROL due on 06/15/2022 ANNUAL PCP TEAM CHRONIC DISEASE VISIT due on 06/15/2022 HEMOGLOBIN/HEMATOCRIT due on 06/15/2022 SERUM CREATININE due on 06/27/2022 COLORECTAL CANCER SCREENING due on 08/23/2022 INFLUENZA Completed HEPATITIS C SCREENING Completed PNEUMOCOCCAL: 65+ Completed ADVANCE DIRECTIVE DISCUSSION Discontinued DATA REVIEWED: Most recent labs done at [facility] ASSESSMENT/PLAN: 1. Type 2 diabetes mellitus with stage 3a chronic kidney disease, without long- term current use of insulin (HCC) - ICD9: 250.40, 585.3, ICD10: E11.22, N18.31 (primary diagnosis) uncontrolled - Continue current medications - Add Trulicity. Patient was advised to discontinue Januvia once he starts the Trulicity - Blood glucose monitoring on a once a day schedule - Follow up in 3 months, sooner should any other issues arise. 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 - BLOOD GLUCOSE TEST STRIPS 2. Essential hypertension - ICD9: 401.9, ICD10: I10 - good control - Continue current medication(s) - Recommended regular aerobic exercise. - Recommend home blood pressure monitoring, to bring results in on next visit - Goal of BP <130/80 - BISOPROLOL 10 MG-HYDROCHLOROTHIAZIDE 6.25 MG TABLET - LISINOPRIL 20 MG TABLET 3. Stage 3 chronic kidney disease, unspecified whether stage 3a or 3b CKD (HCC) - ICD9: 585.3, ICD10: N18.30 Improved. Follow-up with nephrology as advised 4. Need for COVID-19 vaccine - ICD9: V04.89, ICD10: Z23 - Mint-BIOSidense COVID-19 VACCINE, AGE 12+ YR ([place]) Prescription instructions reviewed with patient as applicable. Potential red flag symptoms discussed with the patient. Reviewed appropriate action plan to take if red flag symptoms occur. Patient agreeable to treatment plan. Briana Mcginnis APRN.CNP documented in this encounterMercy Health [facility]06-27-2022 Evaluation note* Diagnosis Type 2 diabetes mellitus with stage 3a chronic kidney disease, without long-term current use of insulin (HCC)- Primary Essential hypertension Unspecified essential hypertension Stage 3 chronic kidney disease, unspecified whether stage 3a or 3b CKD (HCC) Need for COVID-19 vaccine documented in this encounter [facility]04-08-[facility] Miscellaneous Notes* Telephone Encounter - Sravani Flores RN - 06/30/2021 12:32 PM EDT Pt called and is notified of providers results and instructions. Pt voices understanding. Sravani Flores RN * Telephone Encounter - Hong Collier Ma - 06/30/2021 12:23 PM EDT Left message to call office. 06/30/2021 12:23 PM * Telephone Encounter - Briana Mcginnis APRN.CNP - 06/30/2021 11:27 AM EDT Please let the patient know his potassium is normal and kidney function has improved a little. Recheck before appointment with Dr. Mcdaniel in August Briana Mcginnis APRN.CNP documented in this encounterMercy Health [facility]04-08-2022 Evaluation note* Diagnosis Hypertensive kidney disease with stage 3a chronic kidney disease (HCC)- Primary documented in this encounter [facility]04-[facility]-2022 Miscellaneous Notes* Telephone Encounter - Claudia Longoria LPN - 06/28/2021 3:12 PM EDT [facility] will cover rosuvastatin one tablet daily. Can this be changed to rosuvastatin 10 mg one daily #90 ? documented in this encounterMercy Health [facility]04-04-2022 Miscellaneous Notes* Telephone Encounter - Consuelo Dyer RN - 06/26/2021 1:03 PM EDT Spoke with patient. Given message from provider's office. Patient verbalizes understanding. Consuelo Dyer RN * Telephone Encounter - Yamilet Mcnulty Ma - 06/26/2021 12:54 PM EDT vm left with patient to contact office for info. Please see provider note below. Yamilet Mcnulty Ma * Telephone Encounter - Briana Mcginnis APRN.CNP - 06/26/2021 11:19 AM EDT Resume Crestor, 10 mg daily (he was on 20 mg). Please remind patient to have labs done this week. Iwill hold off on making any changes to his diabetes medications until we recheck kidney function Briana Mcginnis APRN.OMARI * Telephone Encounter - Suzanna Granados RN - 06/23/2021 4:00 PM EDT Patient returned call and given provider's message below. Patient states he is willing to go back on the Crestor, either at a low dose or what he was on. He states it is up to the provider. Requesting [facility] in [place]. He also states he is taking his Januvia and Metformin as ordered. Please advise patient. Thank you. * Telephone Encounter - Hong Collier Ma - 06/23/2021 2:44 PM EDT Left message to call office. 06/23/2021 2:44 PM Hong Collier Ma * Telephone Encounter - Briana Mcginnis APRN.CNP - 06/23/2021 1:17 PM EDT Please let the patient know his cholesterol is significant elevated, heart disease risk is very high. I understand he stopped Crestor due to muscle pain, would he be willing to go back on this but amy lower dose or try a different statin? HgbA1c was 9.5, previous 7.5, diabetes is not well controlled. Has he been taking Januvia and Metformin? Briana Mcginnis APRN.CNP documented in this encounterMercy Health [facility]03-28-2022 Miscellaneous Notes* Telephone Encounter - Zenaida Tee LPN - 06/19/2021 9:05 AM EDT Pt returned call & was notified of results & instructions. Pt states understanding. Nurse BP check appt made 07/17/21 Lab appt 06/30/21 Zenaida Tee LPN * Telephone Encounter - Hong Collier Ma - 06/16/2021 9:02 AM EDT Left message to call office. 06/16/2021 9:02 AM Hong Collier Ma * Telephone Encounter - Briana Mcginnis APRN.CNP - 06/16/2021 8:54 AM EDT Please let the patient know his potassium was elevated and kidney function worsening. I discussed with Dr. Mcdaniel. He would like for you to stop the Lisinopril and start a new BP medication calledamlodipine. Recheck potassium in two weeks. BP follow-up in 4 weeks Briana Mcginnis APRN.CNP [facility] History of Present illness Narrative* Franko Mcdaniel MD - 06/15/2021 9:21 AM EDT This note was created using NoteWriter. Subjective Vincenzo Bucio is a 71 year old male. He had no concerns. He had not done his labs. His medical insurance clerk reduced ACEI due to potassium elevation. He stopped Crestor due to cramps. He did not want to take too many medications. He just had cataract surgery. Review of Systems Constitutional: Negative. Respiratory: Negative. Cardiovascular: Negative. Gastrointestinal: Negative. Genitourinary: Negative. Neurological: Negative. ACTIVE PROBLEM LIST Essential Tremor Type 2 Diabetes Mellitus With Stage 3a Chronic Kidney Disease, Without Long-Term Current Use of Insulin (Hcc) Hyperlipidemia, Unspecified Essential Hypertension Actinic Keratosis of Scalp Obesity, Class I, Bmi 30-34.9 Nodule of Kidney Hypertensive Kidney Disease With Stage 3a Chronic Kidney Disease (Hcc) Current Outpatient Medications Medication Sig lisinopril (ZESTRIL, PRINIVIL) 20 mg tablet Take 1 tablet by mouth once daily. SITagliptin (JANUVIA) 100 mg tablet Take 1 tablet by mouth once daily. metFORMIN (GLUCOPHAGE) 1,000 mg tablet Take 1 tablet by mouth daily with breakfast. blood sugar diagnostic (BLOOD GLUCOSE TEST) test strip Test blood sugar(s) 2 times daily. Dx: Type 2 DM - Uncontrolled E11.65 Insulin: No bisoprolol-hydroCHLOROthiazide (ZIAC) 10-6.25 mg per tablet Take 1 tablet by mouth once daily. Multivitamin capsule Take 1 capsule by mouth once daily. rosuvastatin (CRESTOR) 20 mg tablet Take 1 tablet by mouth daily at bedtime. (Patient not taking: Reported on 06/15/2021 ) No current facility-administered medications for this visit. Objective BP 153/80 (BP Site: Left Arm, BP Position: Sitting, BP Cuff Size: Large Adult) Pulse 79 Temp 36.3 C (97.3 F) (Temporal Artery) Resp 18 Wt 90.7 kg (200 lb) BMI 32.28 kg/m Physical Exam Constitutional: General: He is not in acute distress. Cardiovascular: Rate and Rhythm: Normal rate and regular rhythm. Heart sounds: No murmur heard. No friction rub. No gallop. Pulmonary: Effort: Pulmonary effort is normal. Breath sounds: Normal breath sounds. Musculoskeletal: Right lower leg: No edema. Left lower leg: No edema. Neurological: Mental Status: He is alert. Assessment and Plan 1. Essential hypertension - ICD9: 401.9, ICD10: I10 - suboptimal control - LISINOPRIL 20 MG TABLET. Continue same. - BISOPROLOL 10 MG-HYDROCHLOROTHIAZIDE 6.25 MG TABLET. Increase to two tablets daily. 2. Type 2 diabetes mellitus with stage 3a chronic kidney disease, without long- term current use of insulin (HCC) - ICD9: 250.40, 585.3, ICD10: E11.22, N18.31 TBD - Continue current medications - SITAGLIPTIN 100 MG TABLET - BLOOD GLUCOSE TEST STRIPS 3. Hypertensive kidney disease with stage 3a chronic kidney disease (HCC) - ICD9: 403.90, 585.3, ICD10: I12.9, N18.31 Stressed importance of BP control. 4. Hyperlipidemia, unspecified hyperlipidemia type - ICD9: 272.4, ICD10: E78.5 - to be determined upon return of lab results. He will do labs today. - Patient stopped CRESTOR. Franko Mcdaniel MD [facility] Evaluation note* Diagnosis Essential hypertension- Primary Unspecified essential hypertension Type 2 diabetes mellitus with stage 3a chronic kidney disease, without long-term current use of insulin ([facility]) Hypertensive kidney disease with stage 3a chronic kidney disease (HCC) Hyperlipidemia, unspecified hyperlipidemia type documented in this encounter [facility] History of Past illness Narrative* Problem Noted Date Resolved Date Kidney insufficiency 10/10/2017 05/05/2020 Frequency of micturition 01/03/2016 017 Anogenital warts 12/27/2016 Obesity (BMI 30-39.9) 05/05/2018 documented as of this encounter (statuses as of 06/15/2021) [facility] of Past illness Narrative* Problem Noted Date Resolved Date Kidney insufficiency 10/10/2017 05/05/2020 Frequency of micturition 01/03/2016 017 Anogenital warts 12/27/2016 Obesity (BMI 30-39.9) 05/05/2018 documented as of this encounter (statuses as of 06/19/2021) [facility] of [facility] illness Narrative* Problem Noted Date Resolved Date Kidney insufficiency 10/10/2017 05/05/2020 Frequency of micturition 01/03/2016 017 Anogenital warts 12/27/2016 Obesity (BMI 30-39.9) 05/05/2018 documented as of this encounter (statuses as of 06/26/2021) [place] [id number] History of Past illness Narrative* Problem Noted Date Resolved Date Kidney insufficiency 10/10/2017 05/05/2020 Frequency of micturition 01/03/2016 017 Anogenital warts 12/27/2016 Obesity (BMI 30-39.9) 05/05/2018 documented as of this encounter (statuses as of 06/28/2021) [place] [address] History of Past illness Narrative* Problem Noted Date Resolved Date Kidney insufficiency 10/10/2017 05/05/2020 Frequency of micturition 01/03/2016 017 Anogenital warts 12/27/2016 Obesity (BMI 30-39.9) 05/05/2018 documented as of this encounter (statuses as of 06/30/2021) [place] [address] History of Past illness Narrative* Problem Noted Date Resolved Date Kidney insufficiency 10/10/2017 05/05/2020 Frequency of micturition 01/03/2016 017 Anogenital warts 12/27/2016 Obesity (BMI 30-39.9) 05/05/2018 documented as of this encounter (statuses as of 09/18/2021) [place] [address] History of Past illness Narrative* Problem Noted Date Resolved Date Kidney insufficiency 10/10/2017 05/05/2020 Frequency of micturition 01/03/2016 017 Anogenital warts 12/27/2016 Obesity (BMI 30-39.9) 05/05/2018 documented as of this encounter (statuses as of 10/02/2021) [place] [address] History of Past illness Narrative* Problem Noted Date Resolved Date Kidney insufficiency 10/10/2017 05/05/2020 Frequency of micturition 01/03/2016 017 Anogenital warts 12/27/2016 Obesity (BMI 30-39.9) 05/05/2018 documented as of this encounter (statuses as of 11/10/2021) [address]19-2018 History of Past illness Narrative* Problem Noted Date Resolved Date Kidney insufficiency 10/10/2017 05/05/2020 Frequency of micturition 01/03/2016 017 Anogenital warts 12/27/2016 Obesity (BMI 30-39.9) 05/05/2018 documented as of this encounter (statuses as of 12/08/2021) [address]19-2018 History of Past illness Narrative* Problem Noted Date Resolved Date Kidney insufficiency 10/10/2017 05/05/2020 Frequency of micturition 01/03/2016 017 Anogenital warts 12/27/2016 Obesity (BMI 30-39.9) 05/05/2018 documented as of this encounter (statuses as of 12/19/2021) [address]19-2018 History of Past illness Narrative* Problem Noted Date Resolved Date Kidney insufficiency 10/10/2017 05/05/2020 Frequency of micturition 01/03/2016 017 Anogenital warts 12/27/2016 Obesity (BMI 30-39.9) 05/05/2018 documented as of this encounter (statuses as of 12/25/2021) [address]19-2018 History of Past illness Narrative* Problem Noted Date Resolved Date Kidney insufficiency 10/10/2017 05/05/2020 Frequency of micturition 01/03/2016 017 Anogenital warts 12/27/2016 Obesity (BMI 30-39.9) 05/05/2018 documented as of this encounter (statuses as of 12/28/2021) [address]19-2018 History of Past illness Narrative* Problem Noted Date Resolved Date Kidney insufficiency 10/10/2017 05/05/2020 Frequency of micturition 01/03/2016 017 Anogenital warts 12/27/2016 Obesity (BMI 30-39.9) 05/05/2018 documented as of this encounter (statuses as of 01/06/2022) [address]19-2018 History of Past illness Narrative* Problem Noted Date Resolved Date Kidney insufficiency 10/10/2017 05/05/2020 Frequency of micturition 01/03/2016 10/05/2 017 Anogenital warts 12/27/2016 Obesity (BMI 30-39.9) 05/05/2018 documented as of this encounter (statuses as of 03/27/2022) [place] [address] History of Past illness Narrative* Problem Noted Date Resolved Date Kidney insufficiency 10/10/2017 05/05/2020 Frequency of micturition 01/03/2016 017 Anogenital warts 12/27/2016 Obesity (BMI 30-39.9) 05/05/2018 documented as of this encounter (statuses as of 03/31/2022) [address] History of Past illness Narrative* Problem Noted Date Resolved Date Kidney insufficiency 10/10/2017 05/05/2020 Frequency of micturition 01/03/2016 017 Anogenital warts 12/27/2016 Obesity (BMI 30-39.9) 05/05/2018 documented as of this encounter (statuses as of 04/02/2022) [place] [address] History of Past illness Narrative* Problem Noted Date Resolved Date Kidney insufficiency 10/10/2017 05/05/2020 Frequency of micturition 01/03/2016 017 Anogenital warts 12/27/2016 Obesity (BMI 30-39.9) 05/05/2018 documented as of this encounter (statuses as of 04/04/2022) [place] [address] History of Past illness Narrative* Problem Noted Date Resolved Date Kidney insufficiency 10/10/2017 05/05/2020 Frequency of micturition 01/03/2016 017 Anogenital warts 12/27/2016 Obesity (BMI 30-39.9) 05/05/2018 documented as of this encounter (statuses as of 04/04/2022) [address]19-2018 History of Past illness Narrative* Problem Noted Date Resolved Date Kidney insufficiency 10/10/2017 05/05/2020 Frequency of micturition 01/03/2016 017 Anogenital warts 12/27/2016 Obesity (BMI 30-39.9) 05/05/2018 documented as of this encounter (statuses as of 04/26/2022) [address] History of Past illness Narrative* Problem Noted Date Resolved Date Kidney insufficiency 10/10/2017 05/05/2020 Frequency of micturition 01/03/2016 017 Anogenital warts 12/27/2016 Obesity (BMI 30-39.9) 05/05/2018 documented as of this encounter (statuses as of 06/20/2022) [address]19-2018 History of Past illness Narrative* Problem Noted Date Resolved Date Kidney insufficiency 10/10/2017 05/05/2020 Frequency of micturition 01/03/2016 017 Anogenital warts 12/27/2016 Obesity (BMI 30-39.9) 05/05/2018 documented as of this encounter (statuses as of 06/28/2022) [address]19[address]2018 History of Past illness Narrative* Problem Noted Date Resolved Date Kidney insufficiency 10/10/2017 05/05/2020 Frequency of micturition 01/03/2016 017 Anogenital warts 12/27/2016 Obesity (BMI 30-39.9) 05/05/2018 documented as of this encounter (statuses as of 07/13/2022) [address]19[address]2018 History of Past illness Narrative* Problem Noted Date Resolved Date Kidney insufficiency 10/10/2017 05/05/2020 Frequency of micturition 01/03/2016 017 Anogenital warts 12/27/2016 Obesity (BMI 30-39.9) 05/05/2018 documented as of this encounter (statuses as of 07/27/2022) [place] [address] History of Past illness Narrative* Problem Noted Date Diagnosed Date Resolved Date Kidney insufficiency 10/10/2017 021 Frequency of micturition 01/03/201607/2016 Anogenital warts 12/27/2016 Obesity (BMI 30-39.9) 2018 documented as of this encounter (statuses as of 10/01/2022) [address]19-2018 History of Past illness Narrative* Problem Noted Date Diagnosed Date Resolved Date Kidney insufficiency 10/10/2017 021 Frequency of micturition 01/03/201607/2016 Anogenital warts 12/27/2016 Obesity (BMI 30-39.9) 2018 documented as of this encounter (statuses as of 10/18/2022) [facility] note* Diagnosis Hyperkalemia- Primary Hyperpotassemia documented in this encounter [facility] note* Diagnosis Hyperlipidemia, unspecified hyperlipidemia type- Primary Type 2 diabetes mellitus with stage 3a chronic kidney disease, without long-term current use of insulin (HCC) Essential hypertension Unspecified essential hypertension Obesity, Class I, BMI 30-34.9 Obesity, unspecified documented in this encounter [facility] note* Diagnosis Hyperkalemia- Primary Hyperpotassemia documented in this encounter [facility] note* Diagnosis Essential hypertension Unspecified essential hypertension documented in this encounter [facility] note* Diagnosis Aortic valve stenosis, etiology of cardiac valve disease unspecified- Primary documented in this encounter [facility] for referral (narrative)* Outpatient Procedure (Routine) - Authorized Specialty Diagnoses / Procedures Referred By Mary barnard Referred To [facility] Diagnoses Heart murmur Procedures ECHO ECHO TTHRC R-T 2D W/WOM-MODE COMPL SPEC&COLR D Franko Mcdaniel MD [address] [place] [address] [facility] [address] [place] [id number] Referral ID Status Reason Start Date Expiration Date Visits Requested Visits Authorized [id number] Authorized Auto-Generat ed Referral 06/20/2022 06/20/2023 1 1 * Outpatient Procedure (Routine) - Authorized Specialty Diagnoses / Procedures Referred By Mary barnard Referred To Contact [facility] Diagnoses Special screening for malignant neoplasms, colon Procedures COLONOSCOPY SCREENING COLONOSCOPY FLX DX W/COLLJ SPEC WHEN PFRMD Franko Mcdaniel MD [facility] [place] [address] [facility] [address] [place] [id number] Referral ID Status Reason Start Date Expiration Date Visits Requested Visits Authorized [id number] Authorized Auto-Generat ed Referral 06/20/2022 06/21/2023 1 1 [facility] Summary Purpose Family History No Family History Records FoundNo Family History Records FoundNo Family History Records Found Advance Directives No Advanced Directives Records FoundDocuments on File Type Date Recorded Patient Sound Effects Person Expl anation Advance Directive(s) 02/29/2020 10:40 AM Advance Directive(s) 03/26/2018 9:01 AM Advance Directive(s) 01/19/2016 12:00 AM Documents on File Type Date Recorded Patient Sound Effects Person Expl anation Advance Directive(s) 01/19/2016 12:00 AM Documents on File Type Date Recorded Patient Sound Effects Person Expl anation Advance Directive(s) 01/19/2016 12:00 AM Reason for Referral Specialty Diagnoses / Procedures Referred By Mary barnard Referred To Contact Diagnoses Type 2 diabetes mellitus with stage 3a chronic kidney disease, without long-term current use of insulin (HCC) Procedures CONSULT TO DIABETES EDUCATION OFFICE/OUTPATIENT NEW HIGH MDM 60-74 MINUTES Franko Mcdaniel MD [address] [place] [address] [facility] [address] [place] [address] Referral ID Status Reason Start Date Expiration Date Visits Requested Visits Authorized [id number] Pending Review PCP Requested Referral 2 03/21/2023 1 1 Specialty Diagnoses / Procedures Referred By Mary barnard Referred To Contact Cardiology Diagnoses Aortic valve stenosis, etiology of cardiac valve disease unspecified Procedures CONSULT TO CARDIOLOGY OFFICE/OUTPATIENT [facility] MDM 60-74 MINUTES Ras, JOSE G Warren.[employer] [address] [place] [address] Referral ID Status Reason Start Date Expiration Date Visits Requested Visits Authorized [id number] Pending Review PCP Requested Referral 07/11/2022 07/11/2023 1 1 Additional Source Comments (unrecognized sect ion and content) No Status Records FoundNo Status Records FoundNo Status Records Found INFORMATION SOURCE (unrecogn ized section and content) DATE CREATED AUTHOR AUTHOR'S ORGANIZ ATION 12/08/2022 [facility] DATE CREATED AUTHOR AUTHOR'S ORGANIZ ATION 01/06/2023 [facility] Source Comments (unrecognize d section and content) In the event this informatio n is protected by the Federal Confidentiality of Alcohol and Drug Abuse Patient Records regulations: The Federal rules restrict any use of the information to criminally investigate or prosecute any alcohol or drug abuse patient.[facility] the event this information is protected by the Federal Confidentiality of Alcohol and Drug Abuse Patient Records regulations: The Federal rules restrict any use of the information to criminally investigate or prosecute any alcohol or drug abuse patient.[facility] HospitalIn the event this information is protected by the Federal Confidentiality of Alcohol and Drug Abuse Patient Records regulations: The Federal rules restrict any use of the information to criminally investigate or prosecute any alcohol or drug abuse patient.[facility] Hospital[facility] the event this information is protected by the Federal Confidentiality of Alcohol and Drug Abuse Patient Records regulations: The Federal rules restrict any use of the information to criminally investigate or prosecute any alcohol or drug abuse patient.[facility] Hospital[facility] the event this information is protected by the Federal Confidentiality of Alcohol and Drug Abuse Patient Records regulations: The Federal rules restrict any use of the information to criminally investigate or prosecute any alcohol or drug abuse patient.[facility] HospitalIn the event this information is protected by the Federal Confidentiality of Alcohol and Drug Abuse Patient Records regulations: The Federal rules restrict any use of the information to criminally investigate or prosecute any alcohol or drug abuse patient.[facility] Hospital[facility] the event this information is protected by the Federal Confidentiality of Alcohol and Drug Abuse Patient Records regulations: The Federal rules restrict any use of the information to criminally investigate or prosecute any alcohol or drug abuse patient.[facility] HospitalIn the event this information is protected by the Federal Confidentiality of Alcohol and Drug Abuse Patient Records regulations: The Federal rules restrict any use of the information to criminally investigate or prosecute any alcohol or drug abuse patient.[facility] HospitalIn the event this information is protected by the Federal Confidentiality of Alcohol and Drug Abuse Patient Records regulations: The Federal rules restrict any use of the information to criminally investigate or prosecute any alcohol or drug abuse patient.[facility] HospitalIn the event this information is protected by the Federal Confidentiality of Alcohol and Drug Abuse Patient Records regulations: The Federal rules restrict any use of the information to criminally investigate or prosecute any alcohol or drug abuse patient.[facility] Hospital[facility] the event this information is protected by the Federal Confidentiality of Alcohol and Drug Abuse Patient Records regulations: The Federal rules restrict any use of the information to criminally investigate or prosecute any alcohol or drug abuse patient.[facility] Hospital[facility] the event this information is protected by the Federal Confidentiality of Alcohol and Drug Abuse Patient Records regulations: The Federal rules restrict any use of the information to criminally investigate or prosecute any alcohol or drug abuse patient.[facility] Hospital[facility] the event this information is protected by the Federal Confidentiality of Alcohol and Drug Abuse Patient Records regulations: The Federal rules restrict any use of the information to criminally investigate or prosecute any alcohol or drug abuse patient.[facility] HospitalIn the event this information is protected by the Federal Confidentiality of Alcohol and Drug Abuse Patient Records regulations: The Federal rules restrict any use of the information to criminally investigate or prosecute any alcohol or drug abuse patient.[facility] Hospital[facility] the event this information is protected by the Federal Confidentiality of Alcohol and Drug Abuse Patient Records regulations: The Federal rules restrict any use of the information to criminally investigate or prosecute any alcohol or drug abuse patient.[facility] HospitalIn the event this information is protected by the Federal Confidentiality of Alcohol and Drug Abuse Patient Records regulations: The Federal rules restrict any use of the information to criminally investigate or prosecute any alcohol or drug abuse patient.[facility] HospitalIn the event this information is protected by the Federal Confidentiality of Alcohol and Drug Abuse Patient Records regulations: The Federal rules restrict any use of the information to criminally investigate or prosecute any alcohol or drug abuse patient.[facility] HospitalIn the event this information is protected by the Federal Confidentiality of Alcohol and Drug Abuse Patient Records regulations: The Federal rules restrict any use of the information to criminally investigate or prosecute any alcohol or drug abuse patient.[facility] HospitalIn the event this information is protected by the Federal Confidentiality of Alcohol and Drug Abuse Patient Records regulations: The Federal rules restrict any use of the information to criminally investigate or prosecute any alcohol or drug abuse patient.[facility] HospitalIn the event this information is protected by the Federal Confidentiality of Alcohol and Drug Abuse Patient Records regulations: The Federal rules restrict any use of the information to criminally investigate or prosecute any alcohol or drug abuse patient.[facility] HospitalIn the event this information is protected by the Federal Confidentiality of Alcohol and Drug Abuse Patient Records regulations: The Federal rules restrict any use of the information to criminally investigate or prosecute any alcohol or drug abuse patient.[facility] HospitalIn the event this information is protected by the Federal Confidentiality of Alcohol and Drug Abuse Patient Records regulations: The Federal rules restrict any use of the information to criminally investigate or prosecute any alcohol or drug abuse patient.[facility] HospitalIn the event this information is protected by the Federal Confidentiality of Alcohol and Drug Abuse Patient Records regulations: The Federal rules restrict any use of the information to criminally investigate or prosecute any alcohol or drug abuse patient.[facility] HospitalIn the event this information is protected by the Federal Confidentiality of Alcohol and Drug Abuse Patient Records regulations: The Federal rules restrict any use of the information to criminally investigate or prosecute any alcohol or drug abuse patient.[facility] HospitalIn the event this information is protected by the Federal Confidentiality of Alcohol and Drug Abuse Patient Records regulations: The Federal rules restrict any use of the information to criminally investigate or prosecute any alcohol or drug abuse patient.[facility] Reason for Visit (unrecogniz ed section and content) Reason Comments Results, Lab Reason Comments Patient Update Results Reason Comments Medication Update Reason Comments Results Reason Comments F/U 3 Month Reason Onset Date Comments Refill Request 09/28/2021 Reason Onset Date Comments Refill Request 11/09/2021 SEE RX NOTES Reason Onset Date Comments Refill Request 12/08/2021 Reason Comments F/U Diabetes 3 Month Reason Onset Date Comments Population Health Navigation Outreach 12/13/2021 [employer] Care Gaps Reason Onset Date Comments Refill Request 01/05/2022 Reason Comments Recheck Reason Onset Date Comments Refill Request 03/29/2022 Reason Onset Date Comments Refill Request 04/02/2022 Reason Onset Date Comments Insurance Authorization 04/03/2022 dulaglut onofre (TRULICITY) 1.5 mg/0.5 mL pen injector Reason Comments Missed Appointment Pharmacy visit kasey edule Reason Comments F/U 3 Month Reason Comments Appointment Reason Comments Results Reason Comments Results Colonoscopy results Reason Onset Date Comments Population Health Navigation Outreach 10/17/2022 [employer] care gaps Care Teams (unrecognized sec tion and content) Field Recorder Relationship Specialty Start Date End Date Mcdaniel, Saul, MD [address] [facility] [place] [address] PCP - General Internal Medicine 12/27/16 Field Recorder Relationship Specialty Start Date End Date Franko Mcdaniel MD [address] [facility] [place] [address] PCP - General Internal Medicine 12/27/16 Field Recorder Relationship Specialty Start Date End Date Franko Mcdaniel MD [address] [facility] [place] [address] PCP - General Internal Medicine 12/27/16 Field Recorder Relationship Specialty Start Date End Date Franko Mcdaniel MD [address] [facility] [place] [address] PCP - General Internal Medicine 12/27/16 Field Recorder Relationship Specialty Start Date End Date Franko Mcdaniel MD [address] [facility] [place] [address] PCP - General Internal Medicine 12/27/16 Field Recorder Relationship Specialty Start Date End Date Franko Mcdaniel MD [address] [facility] [place] [address] PCP - General Internal Medicine 12/27/16 Field Recorder Relationship Specialty Start Date End Date Franko Mcdaniel MD [address] [facility] [place] [address] PCP - General Internal Medicine 12/27/16 Field Recorder Relationship Specialty Start Date End Date Franko Mcdaniel MD [address] [facility] [place] [address] PCP - General Internal Medicine 12/27/16 Field Recorder Relationship Specialty Start Date End Date Franko Mcdaniel MD [address] [facility] [place] [address] PCP - General Internal Medicine 12/27/16 Field Recorder Relationship Specialty Start Date End Date Franko Mcdaniel MD [address] [facility] [place] [address] PCP - General Internal Medicine 12/27/16 Field Recorder Relationship Specialty Start Date End Date Franko Mcdaniel MD [address] [facility] [place] [address] PCP - General Internal Medicine 12/27/16 Field Recorder Relationship Specialty Start Date End Date Franko Mcdaniel MD [address] [place] [address] PCP - General Internal Medicine 12/27/16 Field Recorder Relationship Specialty Start Date End Date Franko Mcdaniel MD [address] [place] [address] PCP - General Internal Medicine 12/27/16 Field Recorder Relationship Specialty Start Date End Date Franko Mcdaniel MD [address] [place] [address] PCP - General Internal Medicine 12/27/16 Field Recorder Relationship Specialty Start Date End Date Franko Mcdaniel MD [address] [place] [address] PCP - General Internal Medicine 12/27/16 FOR RECORDS PERTAINING TO PATIENTS WHO ARE OR HAVE BEEN ENROLLED IN A CHEMICAL DEPENDENCY/SUBSTANCEABUSE PROGRAM, SOME INFORMATION MAY BE OMITTED. This clinical summary was aggregated from multiple sources. Caution should be exercised in using it in the provision of clinical care. This summary normalizes information from multiple sources, and as a consequence, information in this document may materially change the coding, format and clinical context of patient data. In addition, data may be omitted in some cases. CLINICAL DECISIONS SHOULD BE BASED ON THE PRIMARY CLINICAL RECORDS. [facility]. provides no warranty or guarantee of the accuracy or completeness of information in this document.
[2023-04-17 12:25] LABS: Absolute Lymphocyte Count 2.02 X10^3/uL (0.83-4.51); Absolute Neutrophil Count 4.1 X10^3/uL (2.0-7.7); Basophil# 0.04 X10^3/uL; Basophil% 0.6 % (0-1); Eosinophil# 0.15 X10^3/uL; Eosinophils% 2.1 % (0-5); Hematocrit 42.7 % (40-54); Hemoglobin 13.6 g/dL (13.0-16.5); Lymphocyte # 2.02 X10^3/ul (0.83-4.51); Lymphocyte % 28.4 % (19-41); Mean Corp Hgb Conc 31.9 g/dL (32-36); Mean Corpuscular Hgb 29.4 pg (27.0-32.0); Mean Corpuscular Volume 92.2 fL (80-94); Mean Platelet Vol. 11.1 fl (6.2-12.0); Monocyte# 0.77 X10^3/uL; Monocyte% 10.8 % (0-10); NRBC Flagged by Analyzer 0 % (0-5); Neutrophil # 4.09 X10^3/uL (2.7-7.7); Neutrophil % 57.4 % (47-70); Platelet Count 252 K/mm3 (150-450); RBC Distribution Width CV 12.8 % (11.6-14.6); RBC Distribution Width SD 43.3 fl (35.1-43.9); Red Blood Count 4.63 M/mm3 (4.6-6.2); White Blood Count 7.1 K/mm3 (4.4-11.0)
[2023-04-17 13:32] LABS: ALB/GLOB Ratio 0.8 RATIO (0.9-2.4); AST(SGOT) 22 U/L (15-37); Alanine Aminotransfer ALT/SGPT 27 U/L (16-61); Albumin, Serum 3.5 g/dL (3.2-5.0); Alkaline Phosphatase 42 U/L (45-117); Anion Gap 6 (5-15); BUN 24 mg/dL (7-18); BUN/Creat Ratio 16.6 RATIO (10-20); Calcium,Total 9.5 mg/dL (8.5-10.1); Chloride 103 mmol/L (98-107); Cholesterol 252 mg/dL (200); Creatinine, Serum 1.45 mg/dL (0.70-1.30); EST Glomerular Filtration Rate 50 mL/min (>60); Est Glom Filt Rate - Afr Amer 61 mL/min (>60); Globulin 4.4 g/dL (2.2-4.2); Glucose 188 mg/dL (74-106); High Density Lipoprotein 46 mg/dL; PSA,Total - Annual Screen 1.23 ng/mL (0.00-4.00); Potassium 4.7 mmol/L (3.5-5.1); Protein, Total 7.9 g/dL (6.4-8.2); Sodium Level 136 mmol/L (136-145); Triglycerides 426 mg/dL
[2023-04-17 14:29] LABS: Hemoglobin A1c 8.6 % (3.8-5.6)
== END | disposition home or self-care (01) ==
LOC: MFPLAB 11:23
PROVIDERS: PCP Family Medicine; Visit Provider Family Medicine
DX: Z12.5 Encounter for screening for malignant neoplasm of prostate (principal); E11.8 Type 2 diabetes mellitus with unspecified complications
CPT/HCPCS: 36415; 80053; 80061; 83036; 84153; 85025; G0103

== ENCOUNTER → 2023-07-18 | Outpatient (CLI) | payer MEDICARE, SELFPAY ==
[2023-07-18 09:23] LABS: Mucous, Urine 0 SEEN /hpf (<or=2+); Red Blood Cells-Urine 0 SEEN /hpf (0-5)
[2023-07-18 10:26] LABS: Color, Urine Yellow (Yellow); Glucose, Dipstick 1000 mg/dl (Normal); Ketone-Dipstick Negative (Negative); Leukocyte Esterase-Dipstick 25 /ul (Negative); Nitrite-Dipstick Negative (Negative); Occult Blood-Urine Negative /ul (Negative); Protein-Dipstick 15 mg/dl (Negative); Urine Bilirubin Dipstick Negative (Negative); Urine Clarity Clear (Clear); Urine Urobilinogen Normal (Normal)
[2023-07-18 10:29] LABS: Absolute Lymphocyte Count 1.36 X10^3/uL (0.83-4.51); Absolute Neutrophil Count 3.8 X10^3/uL (2.0-7.7); Basophil# 0.04 X10^3/uL; Basophil% 0.7 % (0-1); Eosinophils% 1.7 % (0-5); Hematocrit 41.9 % (40-54); Hemoglobin 13.2 g/dL (13.0-16.5); Lymphocyte # 1.36 X10^3/ul (0.83-4.51); Lymphocyte % 22.8 % (19-41); Mean Corp Hgb Conc 31.5 g/dL (32-36); Mean Corpuscular Hgb 29.4 pg (27.0-32.0); Mean Corpuscular Volume 93.3 fL (80-94); Mean Platelet Vol. 11.3 fl (6.2-12.0); Monocyte# 0.65 X10^3/uL; Monocyte% 10.9 % (0-10); NRBC Flagged by Analyzer 0 % (0-5); Neutrophil # 3.77 X10^3/uL (2.7-7.7); Neutrophil % 63.1 % (47-70); Platelet Count 199 K/mm3 (150-450); RBC Distribution Width CV 12.9 % (11.6-14.6); Red Blood Count 4.49 M/mm3 (4.6-6.2)
[2023-07-18 10:36] LABS: Bacteria RARE /hpf (None Seen); Squamous Epithelial Cells - UA 0-5 SEEN /hpf (0-5); White Blood Cells 0-5 SEEN /hpf (0-5)
[2023-07-18 11:01] LABS: PTHIN 77.8 pg/mL (18.4-80.1)
[2023-07-18 11:04] LABS: Vitamin D,25 Hydroxy 41.2 ng/mL
[2023-07-18 11:36] LABS: ALB/GLOB Ratio 0.9 RATIO (0.9-2.4); AST(SGOT) 25 U/L (15-37); Alanine Aminotransfer ALT/SGPT 34 U/L (16-61); Albumin, Serum 3.5 g/dL (3.2-5.0); Alkaline Phosphatase 36 U/L (45-117); Anion Gap 5 (5-15); BUN 32 mg/dL (7-18); BUN/Creat Ratio 22.1 RATIO (10-20); Calcium,Total 9.2 mg/dL (8.5-10.1); Chloride 102 mmol/L (98-107); Cholesterol 199 mg/dL (200); Creatinine, Serum 1.45 mg/dL (0.70-1.30); EST Glomerular Filtration Rate 50 mL/min (>60); Est Glom Filt Rate - Afr Amer 61 mL/min (>60); Globulin 4.1 g/dL (2.2-4.2); Glucose 253 mg/dL (74-106); High Density Lipoprotein 49 mg/dL; Phosphorus 2.9 mg/dL (2.5-4.9); Potassium 4.4 mmol/L (3.5-5.1); Protein, Total 7.6 g/dL (6.4-8.2); Sodium Level 137 mmol/L (136-145); Triglycerides 368 mg/dL; Very Low Density Lipoprotein 74 mg/dL (5-40)
[2023-07-18 13:49] LABS: Hemoglobin A1c 7.7 % (3.8-5.6)
[2023-07-19 15:27] LABS: Microalbumin:Creatinine Ratio 236.5 mg/g CRE (<30 mg/g CRE); Protein, Urine (Random) 21.5 mg/dL (<11.9); Protein:Creat Ratio 484 mg/g CRE (0-200)
== END | disposition home or self-care (01) ==
LOC: MTLAB 09:17
PROVIDERS: PCP Family Medicine; Referring Provider Family Medicine; Visit Provider Family Medicine
DX: E11.22 Type 2 diabetes mellitus with diabetic chronic kidney disease (principal); N18.30 Chronic kidney disease, stage 3 unspecified
CPT/HCPCS: 36415; 80053; 80061; 81001; 82043; 82306; 82570; 83036; 83970; 84100; 84156; 85025

== ENCOUNTER → 2023-11-13 | Outpatient (CLI) | payer MEDICARE, SELFPAY ==
[2023-11-13 12:24] LABS: Absolute Lymphocyte Count 1.35 X10^3/uL (0.83-4.51); Absolute Neutrophil Count 3.5 X10^3/uL (2.0-7.7); Basophil# 0.03 X10^3/uL; Basophil% 0.5 % (0-1); Eosinophil# 0.06 X10^3/uL; Eosinophils% 1.1 % (0-5); Hematocrit 46.2 % (40-54); Hemoglobin 14.8 g/dL (13.0-16.5); Lymphocyte # 1.35 X10^3/ul (0.83-4.51); Lymphocyte % 24.1 % (19-41); Mean Corpuscular Hgb 29.6 pg (27.0-32.0); Mean Corpuscular Volume 92.4 fL (80-94); Mean Platelet Vol. 11.8 fl (6.2-12.0); Monocyte# 0.61 X10^3/uL; Monocyte% 10.9 % (0-10); NRBC Flagged by Analyzer 0 % (0-5); Neutrophil # 3.54 X10^3/uL (2.7-7.7); Platelet Count 202 K/mm3 (150-450); RBC Distribution Width CV 12.8 % (11.6-14.6); RBC Distribution Width SD 43.4 fl (35.1-43.9); White Blood Count 5.6 K/mm3 (4.4-11.0)
[2023-11-13 13:02] LABS: ALB/GLOB Ratio 0.8 RATIO (0.9-2.4); AST(SGOT) 16 U/L (15-37); Alanine Aminotransfer ALT/SGPT 20 U/L (16-61); Albumin, Serum 3.5 g/dL (3.2-5.0); Alkaline Phosphatase 46 U/L (45-117); Anion Gap 4 (5-15); BUN 28 mg/dL (7-18); BUN/Creat Ratio 17.9 RATIO (10-20); Calcium,Total 9.6 mg/dL (8.5-10.1); Chloride 104 mmol/L (98-107); Cholesterol 343 mg/dL (200); Creatinine, Serum 1.56 mg/dL (0.70-1.30); EST Glomerular Filtration Rate 46 mL/min (>60); Est Glom Filt Rate - Afr Amer 56 mL/min (>60); Globulin 4.5 g/dL (2.2-4.2); Glucose 213 mg/dL (74-106); High Density Lipoprotein 48 mg/dL; Potassium 4.7 mmol/L (3.5-5.1); Sodium Level 138 mmol/L (136-145); Triglycerides 464 mg/dL
[2023-11-13 13:06] LABS: Hemoglobin A1c 9.9 % (3.8-5.6)
== END | disposition home or self-care (01) ==
LOC: MFPLAB 10:27
PROVIDERS: PCP Family Medicine; Visit Provider Family Medicine
DX: E11.8 Type 2 diabetes mellitus with unspecified complications (principal)
CPT/HCPCS: 36415; 80053; 80061; 83036; 85025

== ENCOUNTER → 2024-07-02 | Outpatient (CLI) | payer MEDICARE, SELFPAY ==
[2024-07-02 12:45] LABS: Absolute Lymphocyte Count 1.55 X10^3/uL (0.83-4.51); Absolute Neutrophil Count 4.7 X10^3/uL (2.0-7.7); Basophil# 0.03 X10^3/uL; Basophil% 0.4 % (0-1); Eosinophil# 0.06 X10^3/uL; Eosinophils% 0.8 % (0-5); Hematocrit 46.7 % (40-54); Hemoglobin 15.2 g/dL (13.0-16.5); Lymphocyte # 1.55 X10^3/ul (0.83-4.51); Mean Corp Hgb Conc 32.5 g/dL (32-36); Mean Corpuscular Hgb 30.2 pg (27.0-32.0); Mean Corpuscular Volume 92.8 fL (80-94); Mean Platelet Vol. 11.7 fl (6.2-12.0); Monocyte# 0.64 X10^3/uL; Monocyte% 9.1 % (0-10); NRBC Flagged by Analyzer 0 % (0-5); Neutrophil # 4.72 X10^3/uL (2.7-7.7); Neutrophil % 66.9 % (47-70); Platelet Count 234 K/mm3 (150-450); RBC Distribution Width CV 12.6 % (11.6-14.6); RBC Distribution Width SD 42.8 fl (35.1-43.9); Red Blood Count 5.03 M/mm3 (4.6-6.2); White Blood Count 7.1 K/mm3 (4.4-11.0)
[2024-07-02 13:18] LABS: PTHIN 35 pg/mL (11-61)
[2024-07-02 13:27] LABS: Microalbumin:Creatinine Ratio 4541.2 mg/g CRE; Protein, Urine (Random) 64.4 mg/dL (0.0-12.0); Protein:Creat Ratio 758 mg/g CRE (0-200)
[2024-07-02 13:34] LABS: Hemoglobin A1c 12.7 % (<=5.6)
[2024-07-02 13:46] LABS: ALB/GLOB Ratio 1.1 RATIO (0.9-2.4); AST(SGOT) 19 U/L (<=37); Alanine Aminotransfer ALT/SGPT 17 U/L (<=46); Albumin, Serum 4.2 g/dL (3.4-4.8); Alkaline Phosphatase 51 U/L (40-129); Anion Gap 16 (5-15); BUN 40 mg/dL (4-19); BUN/Creat Ratio 25.5 RATIO (10-20); Calcium,Total 9.7 mg/dL (7.6-11.0); Carbon Dioxide 23.2 mmol/L (21.0-32.0); Chloride 100 mmol/L (98-108); Cholesterol 331 mg/dL (<=200); Creatinine, Serum 1.57 mg/dL (0.70-1.20); EST Glomerular Filtration Rate 45 (>60); Globulin 3.7 g/dL (2.2-4.2); Glucose 242 mg/dL (70-99); High Density Lipoprotein 48 mg/dL; Low Density Lipoprotein Calc. 177 mg/dL; Potassium 4.5 mmol/L (3.3-5.1); Protein, Total 7.9 g/dL (5.9-8.4); Sodium Level 139 mmol/L (133-145); Total Bilirubin 0.47 mg/dL (0.00-1.30); Triglycerides 532 mg/dL; Very Low Density Lipoprotein 106 mg/dL (5-40); cholesterol:hdl ratio screen 6.91
[2024-07-02 13:51] LABS: Vitamin D,25 Hydroxy 27.2 ng/mL (30-100)
== END | disposition home or self-care (01) ==
PROVIDERS: PCP Family Medicine; Referring Provider Family Medicine; Visit Provider Family Medicine
DX: E11.22 Type 2 diabetes mellitus with diabetic chronic kidney disease (principal); E11.69 Type 2 diabetes mellitus with other specified complication; E11.59 Type 2 diabetes mellitus with other circulatory complications; N18.30 Chronic kidney disease, stage 3 unspecified
CPT/HCPCS: 36415; 80053; 80061; 82043; 82306; 82570; 83036; 83970; 84156; 85025

== ENCOUNTER → 2024-07-07 | Outpatient (CLI) | payer MEDICARE, SELFPAY ==
--- NOTE | 2024-07-07 13:02 | US_ITS ---
PROCEDURE: THYROID (USTHY), 07/07/2024 REASON FOR EXAM: NODULE TECHNIQUE: Grayscale and color Doppler imaging of the thyroid was performed. COMPARISON: None FINDINGS: Right lobe measures 3.9 x 1.9 x 1.9cm. Essentially homogeneous background echotexture. No abnormal vascularity. No solid or mostly solid nodules are identified. Left lobe measures 3.5 x 1.7 x 1.4 cm. Essentially homogeneous background echotexture. No abnormal vascularity. Nodules as below: *Upper pole, 3 x 3 x 3 mm, mixed cystic and solid, hypoechoic solid components, TI-RADS 3. Isthmus measures 4 mm in thickness. US/Thyroid IMPRESSION: 1. Assessment is TI-RADS 3. No nodules currently meet criteria for FNA or follo w-up. 2. Low normal sized gland with essentially unremarkable background echotexture. No abnormal vascularity. Management recommendations for TI-RADS 3 findings: FNA if = 2.5 cm; Follow if = 1.5 cm at 1, 3, and 5 years. Recommendations per ACR Thyroid Imaging, Reporting and Data System (TI-RADS): Meagan rivera Paper of the ACR TI-RADS Committee, 2017 ([email or web address] Reading Location: [id number]
== END | disposition home or self-care (01) ==
LOC: US 12:59
PROVIDERS: PCP Family Medicine; Referring Provider Family Medicine; Visit Provider Family Medicine
DX: E04.1 Nontoxic single thyroid nodule (principal)
CPT/HCPCS: 76536

== ENCOUNTER → 2024-10-12 | Outpatient (CLI) | payer OTHER, SELFPAY ==
[2024-10-12 10:01] LABS: Color, Urine Yellow (Yellow); Glucose, Dipstick 1000 mg/dl (Normal); Ketone-Dipstick Negative (Negative); Leukocyte Esterase-Dipstick 25 /ul (Negative); Nitrite-Dipstick Negative (Negative); Occult Blood-Urine 25 /ul (Negative); Protein-Dipstick 100 mg/dl (Negative); Specific Gravity, Urine 1.020 (1.002-1.030); Urine Bilirubin Dipstick Negative (Negative)
[2024-10-12 10:53] LABS: AST(SGOT) 17 U/L (<=37); Alanine Aminotransfer ALT/SGPT 21 U/L (<=46); Albumin, Serum 4.1 g/dL (3.4-4.8); Alkaline Phosphatase 49 U/L (40-129); Anion Gap 12 (5-15); BUN 29 mg/dL (4-19); BUN/Creat Ratio 21.6 RATIO (10-20); Calcium,Total 10.1 mg/dL (7.6-11.0); Carbon Dioxide 25.8 mmol/L (21.0-32.0); Chloride 101 mmol/L (98-108); Globulin 3.6 g/dL (2.2-4.2); Glucose 301 mg/dL (70-99); Potassium 4.9 mmol/L (3.3-5.1)
--- OUTSIDE RECORDS SUMMARY | 2024-10-12 18:48 | XMS RPT_ITS | CCD ---
Author Organization [facility] Care Team Providers Care Data Recovery Planner Name Role Phone Franko Mcdaniel MD Primary Care Provider [phone] Dr. Martinez Puga Primary Care Provider Dr. Michel Laughlin Attending Provider FRANKO MCDANIEL Primary Care Unavailable Martinez Puga MD Primary Care Provider Franko Mcdaniel MD Primary Care Provider [phone] Martinez Puga MD Primary Care Provider Dr. Martinez Puga MD Primary Care Provider [phone] Dr. Martinez Puga MD Attending Provider [phone] Dr. Martinez Puga MD Referring Provider Martinez Puga Primary Care Unavailable Martinez Puga Attending Unavailable Martinez Puga Referring Unavailable Martinez Puga Primary Care Unavailable Martinez Puga Attending Unavailable Martinez Puga Primary Care Unavailable Aftab Kinney Attending Unavailable Martinez Puga Referring Unavailable Martinez Puga Primary Care Unavailable Martinez Puga Attending Unavailable Martinez Puga Referring Unavailable Martinez Puga Primary Care Unavailable Martinez Puga Attending Unavailable Medications Current Medications Medication Drug Class(es) Dates Sig (Normalized) Sig (Original) amLODIPine 2.5 mg oral tablet (20 sources) Dihydropyridine Calcium Channel Gómez Start: 2 End: 2 take 1 tablet by mouth once daily amLODIPine (NORVASC) 2.5 mg tablet Take 1 tablet by mouth once daily. 90 tablet 3 12/19/2021 Active Comment on above: Take 1 tablet by geno th once daily. bisoprolol fumarate 10 mg / hydroCHLOROthiazide 6.25 mg oral tablet (20 sources) Thiazide Diuretic, beta-Adrenergic Gómez Start: 1 End: 3 take 2 tablets by mouth once daily bisoprolol-hydroCH LOROthiazide (ZIAC) 10-6.25 mg per tablet Indications: Essential hypertension Take 2 tablets by mouth once daily. 180 tablet 3 06/20/2022 Active Comment on above: Take 1 tablet by geno th once daily. Take 2 tablets by mo [facility] once daily. Blood-Glucose Meter monitoring kit (1 source) Start: 2 End: 2 Blood-Glucose Meter monitoring kit Glucose Meter Kit (choose kit covered by insurance)- Dx: Type 2 DM - Uncontrolled E11.65 1 Each 0 09/18/2021 09/19/2021 Active Comment on above: Glucose Meter Kit (c hoose kit covered by insurance)- Dx: Type 2 DM - Uncontrolled E11.65 dulaglutide (TRULICITY) 3 mg/0.5 mL pen injector (8 sources) Start: 3 inject 3 mg by subcutaneous injection every week dulaglutide (TRULICITY) 3 mg/0.5 mL pen injector Indications: Type 2 diabetes mellitus with stage 3a chronic kidney disease, without long-term current use of insulin (HCC) Inject 3 mg subcutaneously one time a week. 2 mL 5 06/20/2022 Active Comment on above: Inject 3 mg subcutan eously one time a week. losartan potassium 50 mg oral tablet (15 sources) Angiotensin 2 Receptor Gómez Start: 2 End: 3 take 1 tablet by mouth once daily losartan (COZAAR) 50 mg tablet Indications: Essential hypertension Take 1 tablet by mouth once daily. 90 tablet 1 06/20/2022 Active Comment on above: Take 1 tablet by geno th once daily. metFORMIN hydrochloride 1000 mg oral tablet (20 sources) Biguanide Start: 2 End: 2 take 1 tablet by mouth once daily at breakfast metFORMIN (GLUCOPHAGE) 1,000 mg tablet Take 1 tablet by mouth daily with breakfast. 90 tablet 3 12/08/2021 Active Start: 09-14-2020 End: 09-29-2021 take 1 tablet by mouth once daily at breakfast metFORMIN (GLUCOPHAGE) 1,000 mg tablet Take 1 tablet by mouth daily with breakfast. 90 tablet 3 09/18/2021 09/29/2021 Discontinued Start: 05-05-2020 End: 09-14-2020 take 1 tablet by mouth twice daily metFORMIN (GLUCOPHAGE) 1,000 mg tablet Take 1 tablet by mouth twice daily. 180 tablet 1 05/05/2020 09/14/2020 Discontinued Comment on above: Take 1 tablet by geno th daily with breakfast. Multivitamin capsule (20 sources) take 1 capsule by mouth once daily Multivitamin capsule Take 1 capsule by mouth once daily. Active take 1 capsule by mouth once hasmukh ly Multivitamin capsule Take 1 capsule by mouth once daily. 0 Active Comment on above: Take 1 capsule by mo uth once daily. perflutren lipid microspheres 1.3 mL in NaCl (PF) 0.9% 10 mL injection (DEFINITY) (7 sources) Start: 3 End: 4 perflutren lipid microspheres 1.3 mL in NaCl (PF) 0.9% 10 mL injection (DEFINITY) polyethylene glycol 3350 123982 mg / potassium chloride 2980 mg / sodium bicarbonate 6720 mg / sodium chloride 5840 mg / sodium sulfate 72181 mg powder for oral solution (1 source) Osmotic Laxative Start: 3 End: 3 peg 3350-electrolytes (COLYTE) 240-22.72-6.72 -5.84 gram solution Indications: Special screening for malignant neoplasms, colon Take 4,000 mL by mouth one time only for 1 dose. 4000 mL 0 06/20/2022 06/20/2022 Active Comment on above: Take 4,000 mL by geno th one time only for 1 dose. rosuvastatin calcium 10 mg oral tablet (20 sources) HMG-CoA Reductase Inhibitor Start: 2 End: 2 take 1 tablet by mouth every other day at bedtime rosuvastatin (CRESTOR) 10 mg tablet Take 1 tablet by mouth every other day at bedtime. 90 tablet 3 12/19/2021 Active Start: 06-28-2021 End: 09-18-2021 take 1 tablet by mouth once daily at bedtime rosuvastatin (CRESTOR) 10 mg tablet Take 1 tablet by mouth daily at bedtime. 90 tablet 3 06/28/2021 09/18/2021 Discontinued Start: 06-26-2021 End: 06-28-2021 take 2 tablets by mouth once daily at bedtime rosuvastatin (CRESTOR) 5 mg tablet Take 2 tablets by mouth daily at bedtime. 90 tablet 1 06/26/2021 06/28/2021 Discontinued Start: 09-15-2020 End: 06-15-2021 take 1 tablet by mouth once daily at bedtime rosuvastatin (CRESTOR) 20 mg tablet Indications: Hyperlipidemia, unspecified hyperlipidemia type Take 1 tablet by mouth daily at bedtime. 90 tablet 1 09/15/2020 06/15/2021 Discontinued (Side Effects) Comment on above: Take 1 tablet by geno th daily at bedtime. Take 2 tablets by mo uth daily at bedtime. Take 1 tablet by geno th every other day at bedtime. 125 ml sodium chloride 9 mg/ml prefilled syringe (7 sources) Start: 06-20-2022 End: 09-19-2023 sodium chloride 0.9 % (flush) 10 mL (BD POSIFLUSH) Completed/Discontinued Medications Medication Drug Class(es) Dates Sig (Normalized) Sig (Original) docusate sodium 100 mg oral capsule (1 source) Start: 02-06-2016 End: 02-15-2021 take 1 capsule by mouth every twelve hours as needed for constipation and constipation docusate sodium (COLACE) 100 mg capsule Indications: Constipation, unspecified constipation type Take 1 capsule by mouth twice daily as needed. 60 capsule 0 02/06/2016 02/15/2021 Discontinued (Course of therapy completed) 0.5 ml dulaglutide 3 mg/ml auto-injector (18 sources) GLP-1 Receptor Agonist Start: 12-25-2021 End: 06-20-2022 dulaglutide (TRULICITY) 1.5 mg/0.5 mL pen injector Inject 1.5 mg subcutaneously one time a week. Inject once per week. Discard Pen After 2 mL 2 03/30/2022 06/20/2022 Discontinued (Dosage adjustment) Start: 09-18-2021 End: 12-25-2021 inject 0.75 mg by subcutaneous injection every week dulaglutide (TRULICITY) 0.75 mg/0.5 mL pen injector Inject 0.75 mg subcutaneously one time a week. 2 mL 3 12/08/2021 12/25/2021 Discontinued (Dosage adjustment) Comment on above: Inject 0.75 mg subcu taneously one time a week. Inject 1.5 mg subcut aneously one time a week. Inject once per week. Discard Pen After lisinopril 20 mg oral tablet (17 sources) Angiotensin Converting Enzyme Inhibitor Start: End: 3 take 1 tablet by mouth once daily lisinopril (ZESTRIL, PRINIVIL) 20 mg tablet Indications: Essential hypertension Take 1 tablet by mouth once daily. 90 tablet 1 01/05/2022 03/21/2022 Discontinued (Patient chooses alternative therapy) Start: 05-05-2020 End: 12-16-2020 take 0.5 tablet by mouth once daily lisinopril (ZESTRIL, PRINIVIL) 40 mg tablet Take 0.5 tablets by mouth once daily. 05/05/2020 12/16/2020 Discontinued Comment on above: Take 1 tablet by geno th once daily. Take 20 mg by mouth once daily. SITagliptin 100 mg oral tablet (10 sources) Dipeptidyl Peptidase 4 Inhibitor Start: End: 2 take 1 tablet by mouth once daily SITagliptin (JANUVIA) 100 mg tablet Indications: Type 2 diabetes mellitus with stage 3a chronic kidney disease, without long-term current use of insulin ([facility]) Take 1 tablet by mouth once daily. 90 tablet 1 06/15/2021 11/10/2021 Discontinued (Clinical Decision) Start: 05-05-2020 End: 09-15-2020 take 1 tablet by mouth once daily SITagliptin (JANUVIA) 50 mg tablet Take 1 tablet by mouth once daily. 90 tablet 1 05/05/2020 09/15/2020 Discontinued Comment on above: Take 1 tablet by geno th once daily. Problems Active Problems Problem Classification Problem Date Documented Da te Episodic/Chronic Chronic kidney disease (1 source) Chronic kidney disease stage 3; Translations: [Stage 3 chronic kidney disease, unspecified whether stage 3a or 3b CKD (HCC)] Chronic Chronic kidney disease (1 source) Chronic kidney disease; Translations: [Chronic kidney disease, stage 3 unspecified] Onset: 06-25-2024 Diabetes mellitus with complications (20 sources) Type 2 diabetes mellitus; Translations: [Type 2 diabetes mellitus with diabetic chronic kidney disease] Onset: 12-03-2023 Chronic Diabetes mellitus without complication (1 source) Type 2 diabetes mellitus without complications; Translations: [Type 2 diabetes mellitus without complications] Onset: 09-26-2024 Chronic Disorders of lipid metabolism (20 sources) Hyperlipidemia; Translations: [Hyperlipidemia, unspecified] Onset: 01-03-2016 Chronic Essential hypertension (20 sources) Essential hypertension; Translations: [Essential (primary) hypertension] Onset: 03-25-1999 Chronic Fluid and electrolyte disorders (2 sources) Hyperkalemia; Translations: [Hyperkalemia] Episodic Heart valve disorders (7 sources) Aortic valve stenosis; Translations: [Nonrheumatic aortic (valve) stenosis] Onset: 07-09-2022 Chronic Hypertension with complications and secondary hypertension (20 sources) Hypertensive renal disease; Translations: [Hypertensive chronic kidney disease with stage 1 through stage 4 chronic kidney disease, or unspecified chronic kidney disease] Onset: 06-13-2021 Chronic Immunizations and screening for infectious disease (1 source) Vaccination needed; Translations: [Encounter for immunization] Episodic Other connective tissue disease (1 source) Foot pain; Translations: [Pain in left foot] 05-05-2020 Episodic Other diseases of kidney and ureters (20 sources) Renal mass; Translations: [Other specified disorders of kidney and ureter] Onset: 05-05-2020 05-05-2020 Chronic Other hereditary and degenerative nervous system conditions (20 sources) Essential tremor; Translations: [Essential tremor] 12-01-2015 Chronic Other nutritional; endocrine; and metabolic disorders (20 sources) Obese class I; Translations: [Obesity, unspecified] Onset: 05-05-2018 05-05-2018 Chronic Other screening for suspected conditions (not mental disorders or infectious disease) (1 source) Patient encounter status; Translations: [Encounter for screening for malignant neoplasm of colon] Episodic Thyroid disorders (1 source) Nontoxic single thyroid nodule; Translations: [Nontoxic single thyroid nodule] Onset: 07-13-2024 Chronic Past or Other Problems Problem Classification Problem Date Documented Da te Episodic/Chronic Genitourinary symptoms and ill-defined conditions (2 sources) Increased frequency of urination; Translations: [Frequency of micturition] Onset: 01-03-2016 Resolved: 12-27-2016 12-27-2016 Episodic Heart valve disorders (16 sources) Heart murmur; Translations: [Cardiac murmur, unspecified] Onset: 03-21-2022 Episodic Other diseases of kidney and ureters (2 sources) Renal impairment; Translations: [Disorder of kidney and ureter, unspecified] Onset: 10-10-2017 Resolved: 05-05-2020 05-05-2020 Episodic Other nutritional; endocrine; and metabolic disorders (2 sources) Body mass index 30+ - obesity; Translations: [Obesity, unspecified] Resolved: 05-05-2018 05-05-2018 Chronic Other skin disorders (20 sources) Actinic keratosis; Translations: [Actinic keratosis] Onset: 12-27-2016 12-27-2016 Episodic Viral infection (2 sources) Condyloma acuminatum of the anogenital region; Translations: [Anogenital (venereal) warts] Resolved: 12-27-2016 12-27-2016 Episodic Results Test Name Value Interpretation Reference Range Facility Microalb:Creat Ratio,Random URon 09-10-2024 MALB:CREAT 454.1 mg/g CRE Normal [facility] Comment on above: Order Comment: Order Date: 07/02/24 Order Info: [id number] - MIALB Result Comment: AMENDED REPORT 09/10/24 1215 MALB:CREAT previously reported as: 4541.2 mg/g CRE Performed By: #### L 501.0900, L506.1001, L502.0250 #### [facility] [address] [place], [place], [address] Thyroidon 07-07-2024 Thyroid [facility] [address] [place], [place] [address] Thyroid MR#: [id number] Acct: [id number] Name: VINCENZO BUCIO Rep #: [id number] : [id number] M [id number] From: Tushar Cruz MD PCP: Dr. Martinez Puga MD Status: DEP CLI Study: Thyroid Date of Exam: 07/07/24 Exam# [id number] Ordering Dr: Martinez Puga MD ADDENDUM by Dr. Tushar Cruz MD on 07/22/24 at 1852 Following initial interpretation, an exam dated 12/18/2022 has been made available and comparison requested. The single nodule described on the LEFT is unchanged. The impression is unchanged. END OF ADDENDUM Reading Location: [facility] 07/22/241852 Date cc: Dr. Martinez Puga MD * Signed PROCEDURE: THYROID (USTHY), 07/07/2024 REASON FOR EXAM: NODULE TECHNIQUE: Grayscale and color Doppler imaging of the thyroid was performed. COMPARISON: None FINDINGS: Right lobe measures 3.9 x 1.9 x 1.9cm. Essentially homogeneous background echotexture. No abnormal vascularity. No solid or mostly solid nodules are identified. Left lobe measures 3.5 x 1.7 x 1.4 cm. Essentially homogeneous background echotexture. No abnormal vascularity. Nodules as below: *Upper pole, 3 x 3 x 3 mm, mixed cystic and solid, hypoechoic solid components, TI-RADS 3. Isthmus measures 4 mm in thickness. US/Thyroid IMPRESSION: 1. Assessment is TI-RADS 3. No nodules currently meet criteria for FNA or follow-up. 2. Low normal sized gland with essentially unremarkable background echotexture. No abnormal vascularity. Management recommendations for TI-RADS 3 findings: FNA if = 2.5 cm; Follow if = 1.5 cm at 1, 3, and 5 years. Recommendations per ACR Thyroid Imaging, Reporting and Data System (TI-RADS): White Paper of the ACR TI-RADS Committee, 2017 (https://linkinghub. [employer].com/retriev e/pii/W7469539238323 862) Reading Location: [facility] CC: Dr. Martinez Puga MD [employer]: Signed Normal [facility] Absolute neutrophil countOrd ered By: Martinez Puga on 07-02-2024 Neutrophils (Bld) [#/Vol] 4.7 10*3/uL 2.0-7.7 [facility] Albumin DL <= 20 mg/L (U) [M ass/Vol]Ordered By: Martinez Puga on 07-02-2024 Urine Random Microalbumin 386.0 mg/L NO RANGE EST. [facility] Anion gap in Serum or Plasma Ordered By: Martinez Puga on 07-02-2024 Anion gap [Moles/Vol] 16 mmol/L High 5-15 [facility] Automated blood erythrocyte countOrdered By: Martinez Puga on 07-02-2024 RBC (Bld) [#/Vol] 5.03 10*6/uL Normal 4.6-6.2 [facility] Comment on above: Order Comment: Order Date: 07/02/24 Order Info: [id number] - CBCD Performed By: #### L 509.1000, L501.9985, L100.0100, L500.4050, L500.4100 #### [facility] [address] [place], [place], [id number] Automated blood hematocrit ( percentage)Ordered By: Martinez Puga on 07-02-2024 Hematocrit (Bld) [Volume fraction] 46.7 % Normal 40-54 [facility] Comment on above: Order Comment: Order Date: 07/02/24 Order Info: [id number] - CBCD Performed By: #### L 509.1000, L501.9985, L100.0100, L500.4050, L500.4100 #### [facility] [address] [place], [place], [id number] Automated lymphocyte count a s percentage of total leukocytesOrdered By: Martinez Puga on 07-02-2024 Lymphocytes/100 WBC (Bld) 22.0 % Normal 19-41 [facility] Comment on above: Order Comment: Order Date: 07/02/24 Order Info: [id number] - CBCD Performed By: #### L 509.1000, L501.9985, L100.0100, L500.4050, L500.4100 #### [facility] [address] [place], [address] BUN/creatinine ratioOrdered By: Martinez Puga on 07-02-2024 Urea nitrogen/Creatinine [Mass ratio] 25.5 mg/mg High 10-20 [facility] Basophil percentageOrdered B y: Martinez Puga on 07-02-2024 Basophils/100 WBC (Bld) 0.4 % Normal 0-1 [facility] Comment on above: Order Comment: Order Date: 07/02/24 Order Info: [id number] - CBCD Performed By: #### L 509.1000, L501.9985, L100.0100, L500.4050, L500.4100 #### [facility] [address] [place], [address] Bilirubin, totalOrdered By: Martinez Puga on 07-02-2024 Bilirubin [Mass/Vol] 0.47 mg/dL Normal 0.00-1.30 [facility] Comment on above: Order Comment: Order Date: 07/02/24 Order Info: [id number] - CMP Order Info: [id number] - LIPID Performed By: #### L 509.1000, L501.9985, L100.0100, L500.4050, L500.4100 #### [facility] [address] [place], [place], [id number] CBC W/Diff, Automatedon 06-23 Absolute Lymph 1.55 X10 3/uL Normal 0.83-4.51 [facility] Comment on above: Order Comment: Order Date: 07/02/24 Order Info: [id number] - CBCD Performed By: #### L 509.1000, L501.9985, L100.0100, L500.4050, L500.4100 #### [facility] [address] [place], [place], [id number] Absolute Neut 4.7 X10 3/uL Normal 2.0-7.7 [facility] Comment on above: Order Comment: Order Date: 07/02/24 Order Info: [id number]- - CBCD Performed By: #### L 509.1000, L501.9985, L100.0100, L500.4050, L500.4100 #### [facility] [address] [place], [address] IG% 0.800 Normal 0.0-0.9 [facility] Comment on above: Order Comment: Order Date: 07/02/24 Order Info: [id number]- - CBCD Result Comment: IG% - Immature Granulocytes (promyelocytes, myelocytes and metamyelocytes) > 1% indicates that a LEFT SHIFT is Present. Performed By: #### L 509.1000, L501.9985, L100.0100, L500.4050, L500.4100 #### [facility] [address] [place], [place], [id number] [phone] Nucleated RBC (Bld) [#/Vol] 0 10*3/uL Normal 0-5 [facility] Comment on above: Order Comment: Order Date: 07/02/24 Order Info: [id number] - CBCD Performed By: #### L 509.1000, L501.9985, L100.0100, L500.4050, L500.4100 #### [facility] [address] [place], [address] RDW SD 42.8 fl Normal 35.1-43.9 [facility] Comment on above: Order Comment: Order Date: 07/02/24 Order Info: [id number]- - CBCD Performed By: #### L 509.1000, L501.9985, L100.0100, L500.4050, L500.4100 #### [facility] [address] [place], [address] Calculated very low density lipoprotein (VLDL) cholesterol measurementOrdered By: Martinez Puga on 07-02-2024 VLDL Cholesterol 106 mg/dL High 5-40 [facility] Carbon dioxide, total [Moles /volume] in Central venous bloodOrdered By: Martinez Puga on 07-02-2024 CO2 [Moles/Vol] 23.2 mmol/L Normal 21.0-32.0 [facility] Comment on above: Order Comment: Order Date: 07/02/24 Order Info: [id number] - CMP Order Info: [id number] - LIPID Performed By: #### L 509.1000, L501.9985, L100.0100, L500.4050, L500.4100 #### [facility] [address] [place], [address] Chloride assayOrdered By: Cassy Puga on 07-02-2024 Chloride [Moles/Vol] 100 mmol/L Normal 98-108 [facility] Comment on above: Order Comment: Order Date: 07/02/24 Order Info: [id number] - CMP Order Info: [id number] - LIPID Performed By: #### L 509.1000, L501.9985, L100.0100, L500.4050, L500.4100 #### [facility] [address] [place], [place], [address] Comprehensive Metabolic Prof ilon 07-02-2024 ALK PHOS 51 U/L Normal 40-129 [facility] Comment on above: Order Comment: Order Date: 07/02/24 Order Info: [id number] - CMP Order Info: [id number] - LIPID Performed By: #### L 509.1000, L501.9985, L100.0100, L500.4050, L500.4100 #### [facility] [address] [place], [address] BUN/CRE 25.5 RATIO High 10-20 [facility] Comment on above: Order Comment: Order Date: 07/02/24 Order Info: [id number] - CMP Order Info: [id number] - LIPID Performed By: #### L 509.1000, L501.9985, L100.0100, L500.4050, L500.4100 #### [facility] [address] [place], [address] GAP 16 High 5-15 [facility] Comment on above: Order Comment: Order Date: 07/02/24 Order Info: [id number] - CMP Order Info: [id number] - LIPID Performed By: #### L 509.1000, L501.9985, L100.0100, L500.4050, L500.4100 #### [facility] [address] [place], [address] GFR/1.73 sq M.predicted among non-blacks MDRD (S/P/Bld) [Vol rate/Area] 45 mL/min/{1.73_m2} Low >60 [facility] Comment on above: Order Comment: Order Date: 07/02/24 Order Info: 0786- - CMP Order Info: [id number] - LIPID Result Comment: mL/m in/1.73m2 CKD-EPI Creatinine Equation (2020) Performed By: #### L 509.1000, L501.9985, L100.0100, L500.4050, L500.4100 #### [facility] [address] [place], [address] T PROT 7.9 g/dL Normal 5.9-8.4 [facility] Comment on above: Order Comment: Order Date: 07/02/24 Order Info: [id number] - CMP Order Info: [id number] - LIPID Performed By: #### L 509.1000, L501.9985, L100.0100, L500.4050, L500.4100 #### [facility] [address] [place], [address] Comprehensive Metabolic Prof ilOrdered By: Martinez Puga on 07-02-2024 AST [Catalytic activity/Vol] 19 U/L Normal <=37 [facility] Comment on above: Order Comment: Order Date: 07/02/24 Order Info: [id number] - CMP Order Info: [id number] - LIPID Performed By: #### L 509.1000, L501.9985, L100.0100, L500.4050, L500.4100 #### [facility] [address] [place], [address] Creatinine Unsp time (U) [Ma ss/Vol]Ordered By: Martinez Puga on 07-02-2024 Creatinine (U) [Mass/Vol] 85.00 mg/dL 39.00-259.00 [facility] Eosinophil percentageOrdered By: Martinez Puga on 07-02-2024 Eosinophils/100 WBC (Bld) 0.8 % Normal 0-5 [facility] Comment on above: Order Comment: Order Date: 07/02/24 Order Info: [id number] - CBCD Performed By: #### L 509.1000, L501.9985, L100.0100, L500.4050, L500.4100 #### [facility] [address] [place], [address] Erythrocyte distribution wid th (RBC) [Ratio]Ordered By: Martinez Puga on 07-02-2024 Erythrocyte distribution width (RBC) [Entitic vol] 42.8 fL 35.1-43.9 [facility] Erythrocyte distribution wid th ratioOrdered By: Martinez Puga on 07-02-2024 Erythrocyte distribution width (RBC) [Ratio] 12.6 % Normal 11.6-14.6 [facility] Comment on above: Order Comment: Order Date: 07/02/24 Order Info: [id number] - CBCD Performed By: #### L 509.1000, L501.9985, L100.0100, L500.4050, L500.4100 #### [facility] [address] [place], [address] GFR/1.73 sq M.predicted oniel g non-blacks MDRD (S/P/Bld) [Vol rate/Area]Ordered By: Martinez Puga on 07-02-2024 Estimated GFR (MDRD) Non-Af Amer 45 Low >60 [facility] Comment on above: mL/min/1.73m2 CKD-EP I Creatinine Equation (2020) Hemoglobin A1c percentageOrd ered By: Martinez Puga on 07-02-2024 HbA1c (Bld) [Mass fraction] 12.7 % Normal <=5.6 [facility] Comment on above: Order Comment: Order Date: 07/02/24 Order Info: [id number] - A1C Performed By: #### L 509.1000, L501.9985, L100.0100, L500.4050, L500.4100 #### [facility] [address] [place], [place], [address] Hemoglobin measurementOrdere d By: Martinez Puga on 07-02-2024 Hemoglobin (Bld) [Mass/Vol] 15.2 g/dL Normal 13.0-16.5 [facility] Comment on above: Order Comment: Order Date: 07/02/24 Order Info: [id number] - CBCD Performed By: #### L 509.1000, L501.9985, L100.0100, L500.4050, L500.4100 #### [facility] [address] [place], [place], [id number] Immature granulocytes/100 WB C Auto (Bld)Ordered By: Martinez Puga on 07-02-2024 Immature granulocytes/100 WBC (Bld) 0.800 % 0.0-0.9 [facility] Comment on above: IG% - Immature Granu locytes (promyelocytes, myelocytes and metamyelocytes) > 1% indicates that a LEFT SHIFT is Present. LDL calc ser/plasOrdered By: Martinez Puga on 07-02-2024 LDL Cholesterol, Calculated 177 mg/dL [facility] Comment on above: Rzcrvrvlxd=170-425 m g/dL & Higher Szzm=416 mg/dL or greater Lipid Profileon 07-02-2024 CHOL:HDL 6.91 Normal [facility] Comment on above: Order Comment: Order Date: 07/02/24 Order Info: [id number] - CMP Order Info: [id number] - LIPID Performed By: #### L 509.1000, L501.9985, L100.0100, L500.4050, L500.4100 #### [facility] [address] [place], [address] Cholesterol in LDL [Mass/Vol] 177 mg/dL Normal [facility] Comment on above: Order Comment: Order Date: 07/02/24 Order Info: [id number] - CMP Order Info: [id number] - LIPID Result Comment: Bord ypeoil=448-696 mg/dL Higher Hgfi=007 mg/dL or greater Performed By: #### L 509.1000, L501.9985, L100.0100, L500.4050, L500.4100 #### [facility] [address] [place], [address] Cholesterol in VLDL [Mass/Vol] 106 mg/dL High 5-40 [facility] Comment on above: Order Comment: Order Date: 07/02/24 Order Info: [id number] - CMP Order Info: [id number] - LIPID Performed By: #### L 509.1000, L501.9985, L100.0100, L500.4050, L500.4100 #### [facility] [address] [place], [address] Lymphocytes Auto (Unsp spec) [#/Vol]Ordered By: Martinez Puga on 07-02-2024 Lymphocytes (Bld) [#/Vol] 1.55 10*3/uL 0.83-4.51 [facility] MCV (mean corpuscular volume ) determinationOrdered By: Martinez Puga on 07-02-2024 MCV (RBC) [Entitic vol] 92.8 fL Normal 80-94 [facility] Comment on above: Order Comment: Order Date: 07/02/24 Order Info: [id number] - CBCD Performed By: #### L 509.1000, L501.9985, L100.0100, L500.4050, L500.4100 #### [facility] [address] [place], [address] Mean corpuscular hemoglobin (MCH) determinationOrdered By: Martinez Puga on 07-02-2024 MCH (RBC) [Entitic mass] 30.2 pg Normal 27.0-32.0 [facility] Comment on above: Order Comment: Order Date: 07/02/24 Order Info: [id number] - CBCD Performed By: #### L 509.1000, L501.9985, L100.0100, L500.4050, L500.4100 #### [facility] [address] [place], [place], [id number] Mean corpuscular hemoglobin concentration (MCHC) determinationOrdered By: Martinez Puga on 07-02-2024 MCHC (RBC) [Mass/Vol] 32.5 g/dL Normal 32-36 [facility] Comment on above: Order Comment: Order Date: 07/02/24 Order Info: [id number] - CBCD Performed By: #### L 509.1000, L501.9985, L100.0100, L500.4050, L500.4100 #### [facility] [address] [place], [address] Mean platelet volume determi nationOrdered By: Martinez Puga on 07-02-2024 Platelet mean volume (Bld) [Entitic vol] 11.7 fL Normal 6.2-12.0 [facility] Comment on above: Order Comment: Order Date: 07/02/24 Order Info: [id number] - CBCD Performed By: #### L 509.1000, L501.9985, L100.0100, L500.4050, L500.4100 #### [facility] [address] [place], [place], [id number] Microalbumin/creat ratio urO rdered By: Martinez Puga on 07-02-2024 Urine Microalbumin/Creatinine Ratio 4541.2 mg/g CRE [facility] Monocyte percentageOrdered B y: Martinez Puga on 07-02-2024 Monocytes/100 WBC (Bld) 9.1 % Normal 0-10 [facility] Comment on above: Order Comment: Order Date: 07/02/24 Order Info: [id number] - CBCD Performed By: #### L 509.1000, L501.9985, L100.0100, L500.4050, L500.4100 #### [facility] [address] [place], [address] Neutrophil percentageOrdered By: Martinez Puga on 07-02-2024 Neutrophils/100 WBC (Bld) 66.9 % Normal 47-70 [facility] Comment on above: Order Comment: Order Date: 07/02/24 Order Info: [id number] - CBCD Performed By: #### L 509.1000, L501.9985, L100.0100, L500.4050, L500.4100 #### [facility] [address] [place], [address] Nucleated red blood cell per centageOrdered By: Martinez Puga on 07-02-2024 Nucleated RBC/100 WBC (Bld) [Ratio] 0 % 0-5 [facility] PTH intactOrdered By: Martinez adair on 07-02-2024 Parathyroid Hormone (Intact) 35 pg/mL [facility] PTHINon 07-02-2024 PTH 35 pg/mL Normal [facility] Comment on above: Order Comment: Order Date: 07/02/24 Order Info: [id number] - PTHIN Performed By: #### L 509.1000, L501.9985, L100.0100, L500.4050, L500.4100 #### [facility] [address] [place], [address] Platelet countOrdered By: Cassy Puga on 07-02-2024 Platelets (Bld) [#/Vol] 234 10*3/uL Normal 150-450 [facility] Comment on above: Order Comment: Order Date: 07/02/24 Order Info: [id number] - CBCD Performed By: #### L 509.1000, L501.9985, L100.0100, L500.4050, L500.4100 #### [facility] [address] [place], [address] Potassium measurement (mass/ volume)Ordered By: Martinez Puga on 07-02-2024 Potassium [Moles/Vol] 4.5 mmol/L Normal 3.3-5.1 [facility] Comment on above: Order Comment: Order Date: 07/02/24 Order Info: [id number] - CMP Order Info: [id number] - LIPID Performed By: #### L 509.1000, L501.9985, L100.0100, L500.4050, L500.4100 #### [facility] [address] [place], [address] Protein+Creatinine Ratio,Uri neon 07-02-2024 PROT:CRE RATIO 758 mg/g CRE High 0-200 [facility] Comment on above: Order Comment: Order Date: 07/02/24 Order Info: [id number] - PTHIN Performed By: #### L 509.1000, L501.9985, L100.0100, L500.4050, L500.4100 #### [facility] [address] [place], [address] Protein/Creatinine (U) [Mass ratio]Ordered By: Martinez Puga on 07-02-2024 Urine Protein/Creatinine Ratio 758 mg/g CRE High 0-200 [facility] Screening total cholesterol/ high density lipoprotein (HDL) cholesterol ratioOrdered By: Martinez Puga on 07-02-2024 Cholesterol.total/Choles terol in HDL [Mass ratio] 6.91 {ratio} [facility] Serum creatinine measurement (mass/volume)Ordered By: Martinez Puga on 07-02-2024 Creatinine [Mass/Vol] 1.57 mg/dL High 0.70-1.20 [facility] Comment on above: Order Comment: Order Date: 07/02/24 Order Info: [id number] - CMP Order Info: [id number] - LIPID Performed By: #### L 509.1000, L501.9985, L100.0100, L500.4050, L500.4100 #### [facility] [address] [place], [address] Serum globulin measurementOr dered By: Martinez Puga on 07-02-2024 Globulin (S) [Mass/Vol] 3.7 g/dL Normal 2.2-4.2 [facility] Comment on above: Order Comment: Order Date: 07/02/24 Order Info: [id number] - CMP Order Info: [id number] - LIPID Performed By: #### L 509.1000, L501.9985, L100.0100, L500.4050, L500.4100 #### [facility] [address] [place], [address] Serum glucose measurement (m ass/volume)Ordered By: Martinez Puga on 07-02-2024 Glucose [Mass/Vol] 242 mg/dL High 70-99 [facility] Comment on above: Order Comment: Order Date: 07/02/24 Order Info: [id number] - CMP Order Info: [id number] - LIPID Performed By: #### L 509.1000, L501.9985, L100.0100, L500.4050, L500.4100 #### [facility] [address] [place], [address] Serum or plasma alanine gonzalez otransferase (ALT) measurementOrdered By: Martinez Puga on 07-02-2024 ALT [Catalytic activity/Vol] 17 U/L Normal <=46 [facility] Comment on above: Order Comment: Order Date: 07/02/24 Order Info: [id number] - CMP Order Info: [id number] - LIPID Performed By: #### L 509.1000, L501.9985, L100.0100, L500.4050, L500.4100 #### [facility] [address] [place], [address] Serum or plasma albumin brenden urement (mass/volume)Ordered By: Martinez Puga on 07-02-2024 Albumin [Mass/Vol] 4.2 g/dL Normal 3.4-4.8 [facility] Comment on above: Order Comment: Order Date: 07/02/24 Order Info: [id number] - CMP Order Info: [id number] - LIPID Performed By: #### L 509.1000, L501.9985, L100.0100, L500.4050, L500.4100 #### [facility] [address] [place], [address] Serum or plasma albumin/glob ulin mass ratioOrdered By: Martinez Puga on 07-02-2024 Albumin/Globulin [Mass ratio] 1.1 {ratio} Normal 0.9-2.4 [facility] Comment on above: Order Comment: Order Date: 07/02/24 Order Info: 0786- - CMP Order Info: [id number] - LIPID Performed By: #### L 509.1000, L501.9985, L100.0100, L500.4050, L500.4100 #### [facility] [address] [place], [address] Serum or plasma alkaline marcelino sphatase measurementOrdered By: Martinez Puga on 07-02-2024 ALP [Catalytic activity/Vol] 51 U/L 40-129 [facility] Serum or plasma calcium brenden urement (mass/volume)Ordered By: Martinez Puga on 07-02-2024 Calcium [Mass/Vol] 9.7 mg/dL Normal 7.6-11.0 [facility] Comment on above: Order Comment: Order Date: 07/02/24 Order Info: 0786- - CMP Order Info: [id number] - LIPID Performed By: #### L 509.1000, L501.9985, L100.0100, L500.4050, L500.4100 #### [facility] [address] [place], [address] Serum or plasma cholesterol in HDL measurement (mass/volume)Ordered By: Martinez Puga on 07-02-2024 Cholesterol in HDL [Mass/Vol] 48 mg/dL Normal [facility] Comment on above: National Cholesterol Education Program (NCEP) guidelines:<40 mg/dL: Low HDL-cholesterol (major risk factor for CHD)>= 60 mg/dL: High HDL-cholesterol (negative risk factor for CHD)HDL-cholesterol is affected by a number of factors, e.g. smoking, exercise, hormones, sex and age. Order Comment: Order Date: 07/02/24 Order Info: 0786-1 - [facility] Order Info: [id number] - LIPID Result Comment: Tracey onal Cholesterol Education Program (NCEP) guidelines: <40 mg/dL: Low HDL-cholesterol (major risk factor for CHD) >= 60 mg/dL: High HDL-cholesterol (negative risk factor for CHD) HDL-cholesterol is affected by a number of factors, e.g. smoking, exercise, hormones, sex and age. Performed By: #### L 509.1000, L501.9985, L100.0100, L500.4050, L500.4100 #### [facility] [address] [facility] [id number] Serum or plasma cholesterol measurement (mass/volume)Ordered By: Martinez Puga on 07-02-2024 Cholesterol [Mass/Vol] 331 mg/dL High <=200 [facility] Comment on above: Cholesterol level, D esirable <200 mg/dLBorderline high cholesterol 200-239 mg/dLHigh cholesterol >=240 mg/dLRecommendations of the NCEP Adult Treatment Panel for the following risk-cutoff thresholds for the [place] population. Order Comment: Order Date: 07/02/24 Order Info: 0786-1 - CMP Order Info: [id number] - LIPID Result Comment: Chol esterol level, Desirable <200 mg/dL Borderline high cholesterol 200-239 mg/dL High cholesterol >=240 mg/dL Recommendations of the NCEP Adult Treatment Panel for the following risk-cutoff thresholds for the [place] population. Performed By: #### L 509.1000, L501.9985, L100.0100, L500.4050, L500.4100 #### [facility] [address] [place], [place], [address] Serum or plasma urea nitroge n measurement (mass/volume)Ordered By: Martinez Puga on 07-02-2024 Urea nitrogen [Mass/Vol] 40 mg/dL High 4-19 [facility] Comment on above: Order Comment: Order Date: 07/02/24 Order Info: [id number] - CMP Order Info: [id number] - LIPID Performed By: #### L 509.1000, L501.9985, L100.0100, L500.4050, L500.4100 #### [facility] [address] [place], [place], [id number] Sodium levelOrdered By: Martinez Puga on 07-02-2024 Sodium [Moles/Vol] 139 mmol/L Normal 133-145 [facility] Comment on above: Order Comment: Order Date: 07/02/24 Order Info: 0786- - CMP Order Info: [id number] - LIPID Performed By: #### L 509.1000, L501.9985, L100.0100, L500.4050, L500.4100 #### [facility] [address] [place], [place], [address] Total proteinOrdered By: Luke Puga on 07-02-2024 Protein [Mass/Vol] 7.9 g/dL 5.9-8.4 [facility] Triglycerides measurementOrd ered By: Martinez Puga on 07-02-2024 Triglyceride [Mass/Vol] 532 mg/dL High [facility] Comment on above: The drugs N-Acetylcy steine and Metamizole may falsely depress this assay. Normal range: <150 mg/dLBorderline High: 150-199 mg/dLHigh: 200-499 mg/dLVery High: >500 mg/dL Order Comment: Order Date: 07/02/24 Order Info: [id number] - CMP Order Info: [id number] - LIPID Result Comment: The drugs N-Acetylcysteine and Metamizole may falsely depress this assay. Normal range: <150 mg/dL Borderline High: 150-199 mg/dL High: 200-499 mg/dL Very High: >500 mg/dL Performed By: #### L 509.1000, L501.9985, L100.0100, L500.4050, L500.4100 #### [facility] [address] [place], [address] Urine protein measurement (m ass/volume)Ordered By: Martinez Puga on 07-02-2024 Protein (U) [Mass/Vol] 64.4 mg/dL High 0.0-12.0 [facility] Comment on above: Order Comment: Order Date: 07/02/24 Order Info: [id number] - PTHIN Performed By: #### L 509.1000, L501.9985, L100.0100, L500.4050, L500.4100 #### [facility] [address] [place], [place], [address] Vitamin D, 25-hydroxyOrdered By: Martinez Puga on 07-02-2024 Vitamin D 25-Hydroxy 27.2 ng/mL Low 30-100 [facility] Comment on above: Vitamin D StatusDefi ciency: <20 ng/mL (50nmol/L)Insufficiency: 20-30 ng/mL (50-75 nmol/L)Sufficiency: 30-100 ng/mL (75-250 nmol/L)Toxicity: >100 ng/mL (>250 nmol/L) Vitamin D,25 Hydroxyon 07-02 Vitamin D 25-OH 27.2 ng/mL Low 30-100 [facility] Comment on above: Order Comment: Order Date: 07/02/24 Order Info: [id number] - PTHIN Result Comment: Aissatou min D Status Deficiency: <20 ng/mL (50nmol/L) Insufficiency: 20-30 ng/mL (50-75 nmol/L) Sufficiency: 30-100 ng/mL (75-250 nmol/L) Toxicity: >100 ng/mL (>250 nmol/L) Performed By: #### L 509.1000, L501.9985, L100.0100, L500.4050, L500.4100 #### [facility] [address] [place], [address] White blood cell (WBC) count Ordered By: Martinez Puga on 07-02-2024 WBC (Bld) [#/Vol] 7.1 10*3/uL Normal 4.4-11.0 [facility] Comment on above: Order Comment: Order Date: 07/02/24 Order Info: [id number] - CBCD Performed By: #### L 509.1000, L501.9985, L100.0100, L500.4050, L500.4100 #### [facility] [address] [place], [address] CBC W/Diff, Automatedon 10-24 Absolute Lymph 1.35 X10 3/uL Normal 0.83-4.51 [facility] Comment on above: Order Comment: Order Date: 11/13/23 Order Info: 0184-1 - CBCD Performed By: #### L 500.4050, L501.9985, L500.4100, L100.0100 #### [facility] [address] [place], [address] Absolute Neut 3.5 X10 3/uL Normal 2.0-7.7 [facility] Comment on above: Order Comment: Order Date: 11/13/23 Order Info: 0184-1 - CBCD Performed By: #### L 500.4050, L501.9985, L500.4100, L100.0100 #### [facility] [address] [place], [address] Basophils/100 WBC (Bld) 0.5 % Normal 0-1 [facility] Comment on above: Order Comment: Order Date: 11/13/23 Order Info: 0184-1 - CBCD Performed By: #### L 500.4050, L501.9985, L500.4100, L100.0100 #### [facility] [address] [place], [address] Eosinophils/100 WBC (Bld) 1.1 % Normal 0-5 [facility] Comment on above: Order Comment: Order Date: 11/13/23 Order Info: 0184- - CBCD Performed By: #### L 500.4050, L501.9985, L500.4100, L100.0100 #### [facility] [address] [place], [address] Erythrocyte distribution width (RBC) [Ratio] 12.8 % Normal 11.6-14.6 [facility] Comment on above: Order Comment: Order Date: 11/13/23 Order Info: 018- - CBCD Performed By: #### L 500.4050, L501.9985, L500.4100, L100.0100 #### [facility] [address] [place], [address] Hematocrit (Bld) [Volume fraction] 46.2 % Normal 40-54 [facility] Comment on above: Order Comment: Order Date: 11/13/23 Order Info: 0184- - CBCD Performed By: #### L 500.4050, L501.9985, L500.4100, L100.0100 #### [facility] [address] [place], [address] Hemoglobin (Bld) [Mass/Vol] 14.8 g/dL Normal 13.0-16.5 [facility] Comment on above: Order Comment: Order Date: 11/13/23 Order Info: 0184- - CBCD Performed By: #### L 500.4050, L501.9985, L500.4100, L100.0100 #### [facility] [address] [place], [address] IG% 0.400 Normal 0.0-0.9 [facility] Comment on above: Order Comment: Order Date: 11/13/23 Order Info: 0184- - CBCD Result Comment: IG% - Immature Granulocytes (promyelocytes, myelocytes and metamyelocytes) > 1% indicates that a LEFT SHIFT is Present. Performed By: #### L 500.4050, L501.9985, L500.4100, L100.0100 #### [facility] [address] [place], [address] Lymphocytes/100 WBC (Bld) 24.1 % Normal 19-41 [facility] Comment on above: Order Comment: Order Date: 11/13/23 Order Info: 0184-1 - CBCD Performed By: #### L 500.4050, L501.9985, L500.4100, L100.0100 #### [facility] [address] [place], [address] MCH (RBC) [Entitic mass] 29.6 pg Normal 27.0-32.0 [facility] Comment on above: Order Comment: Order Date: 11/13/23 Order Info: 018- - CBCD Performed By: #### L 500.4050, L501.9985, L500.4100, L100.0100 #### [facility] [address] [place], [address] MCHC (RBC) [Mass/Vol] 32.0 g/dL Normal 32-36 [facility] Comment on above: Order Comment: Order Date: 11/13/23 Order Info: 0184- - CBCD Performed By: #### L 500.4050, L501.9985, L500.4100, L100.0100 #### [facility] [address] [place], [address] MCV (RBC) [Entitic vol] 92.4 fL Normal 80-94 [facility] Comment on above: Order Comment: Order Date: 11/13/23 Order Info: 0184-1 - CBCD Performed By: #### L 500.4050, L501.9985, L500.4100, L100.0100 #### [facility] [address] [place], [address] Monocytes/100 WBC (Bld) 10.9 % High 0-10 [facility] Comment on above: Order Comment: Order Date: 11/13/23 Order Info: 0184-1 - CBCD Performed By: #### L 500.4050, L501.9985, L500.4100, L100.0100 #### [facility] [address] [place], [address] Neutrophils/100 WBC (Bld) 63.0 % Normal 47-70 [facility] Comment on above: Order Comment: Order Date: 11/13/23 Order Info: 0184- - CBCD Performed By: #### L 500.4050, L501.9985, L500.4100, L100.0100 #### [facility] [address] [place], [address] Nucleated RBC (Bld) [#/Vol] 0 10*3/uL Normal 0-5 [facility] Comment on above: Order Comment: Order Date: 11/13/23 Order Info: 0184- - CBCD Performed By: #### L 500.4050, L501.9985, L500.4100, L100.0100 #### [facility] [address] [place], [address] Platelet mean volume (Bld) [Entitic vol] 11.8 fL Normal 6.2-12.0 [facility] Comment on above: Order Comment: Order Date: 11/13/23 Order Info: 0184-1 - CBCD Performed By: #### L 500.4050, L501.9985, L500.4100, L100.0100 #### [facility] [address] [place], [address] Platelets (Bld) [#/Vol] 202 10*3/uL Normal 150-450 [facility] Comment on above: Order Comment: Order Date: 11/13/23 Order Info: 0184-1 - CBCD Performed By: #### L 500.4050, L501.9985, L500.4100, L100.0100 #### [facility] [address] [place], [address] RBC (Bld) [#/Vol] 5.00 10*6/uL Normal 4.6-6.2 [facility] Comment on above: Order Comment: Order Date: 11/13/23 Order Info: 0184-1 - CBCD Performed By: #### L 500.4050, L501.9985, L500.4100, L100.0100 #### [facility] [address] [place], [address] RDW SD 43.4 fl Normal 35.1-43.9 [facility] Comment on above: Order Comment: Order Date: 11/13/23 Order Info: 0184- - CBCD Performed By: #### L 500.4050, L501.9985, L500.4100, L100.0100 #### [facility] [address] [place], [address] WBC (Bld) [#/Vol] 5.6 10*3/uL Normal 4.4-11.0 [facility] Comment on above: Order Comment: Order Date: 11/13/23 Order Info: 0184-1 - CBCD Performed By: #### L 500.4050, L501.9985, L500.4100, L100.0100 #### [facility] [address] [place], [address] Comprehensive Metabolic Prof ilon 11-13-2023 Albumin [Mass/Vol] 3.5 g/dL Normal 3.2-5.0 [facility] Comment on above: Order Comment: Order Date: 11/13/23 Order Info: [id number] - CMP Order Info: [id number] - LIPID Performed By: #### L 500.4050, L501.9985, L500.4100, L100.0100 #### [facility] [address] [place], [address] Albumin/Globulin [Mass ratio] 0.8 {ratio} Low 0.9-2.4 [facility] Comment on above: Order Comment: Order Date: 11/13/23 Order Info: 0786-1 - CMP Order Info: [id number] - LIPID Performed By: #### L 500.4050, L501.9985, L500.4100, L100.0100 #### [facility] [address] [place], [address] ALK P 46 U/L Normal 45-117 [facility] Comment on above: Order Comment: Order Date: 11/13/23 Order Info: [id number] - CMP Order Info: [id number] - LIPID Performed By: #### L 500.4050, L501.9985, L500.4100, L100.0100 #### [facility] [address] [place], [address] ALT [Catalytic activity/Vol] 20 U/L Normal 16-61 [facility] Comment on above: Order Comment: Order Date: 11/13/23 Order Info: [id number] - CMP Order Info: [id number] - LIPID Performed By: #### L 500.4050, L501.9985, L500.4100, L100.0100 #### [facility] [address] [place], [address] AST [Catalytic activity/Vol] 16 U/L Normal 15-37 [facility] Comment on above: Order Comment: Order Date: 11/13/23 Order Info: [id number] - CMP Order Info: [id number] - LIPID Performed By: #### L [id number], [id number], L500.4100, L100.0100 #### [facility] [address] [place], [address] BUN/CRE 17.9 RATIO Normal 10-20 [facility] Comment on above: Order Comment: Order Date: 11/13/23 Order Info: [id number] - CMP Order Info: [id number] - LIPID Performed By: #### L [id number], [id number], L500.4100, L100.0100 #### [facility] [address] [place], [address] CA,Total 9.6 mg/dL Normal 8.5-10.1 [facility] Comment on above: Order Comment: Order Date: 11/13/23 Order Info: [id number] - CMP Order Info: [id number] - LIPID Performed By: #### L [id number], [id number], L500.4100, L100.0100 #### [facility] [address] [place], [address] CO2 [Moles/Vol] 30.0 mmol/L Normal 21.0-32.0 [facility] Comment on above: Order Comment: Order Date: 11/13/23 Order Info: [id number] - CMP Order Info: [id number] - LIPID Performed By: #### L [id number], [id number], L500.4100, L100.0100 #### [facility] [address] [place], [address] GAP 4 Low 5-15 [facility] Comment on above: Order Comment: Order Date: 11/13/23 Order Info: [id number] - CMP Order Info: [id number] - LIPID Performed By: #### L [id number], [id number], [id number], L100.0100 #### [facility] [address] [place], [address] Globulin (S) [Mass/Vol] 4.5 g/dL High 2.2-4.2 [facility] Comment on above: Order Comment: Order Date: 11/13/23 Order Info: [id number] - CMP Order Info: [id number] - LIPID Performed By: #### L [id number], [id number], L500.4100, L100.0100 #### [facility] [address] [place], [address] Urea nitrogen [Mass/Vol] 28 mg/dL High 7-18 [facility] Comment on above: Order Comment: Order Date: 11/13/23 Order Info: [id number] - CMP Order Info: [id number] - LIPID Performed By: #### L [id number], [id number], L500.4100, L100.0100 #### [facility] [address] [place], [address] Hemoglobin A1con 11-13-2023 HbA1c (Bld) [Mass fraction] 9.9 % High 3.8-5.6 [facility] Comment on above: Order Comment: Order Date: 11/13/23 Order Info: [id number] - A1C Result Comment: Norm al < 5.7 % Prediabetic 5.7 - 6.4 % Diabetic >or= 6.5 % Please note range changes. Performed By: #### L 500.4050, [id number], L500.4100, L100.0100 #### [facility] [address] [place], [address] Lipid Profileon 11-13-2023 Cholesterol [Mass/Vol] 343 mg/dL High 200 [facility] Comment on above: Order Comment: Order Date: 11/13/23 Order Info: [id number] - CMP Order Info: [id number] - LIPID Result Comment: <200 mg/dL Desirable 200-240 mg/dL Borderline >240 mg/dL High Risk Performed By: #### L [id number], [id number], [id number], L100.0100 #### [facility] [address] [place], [address] LDL TNP Normal 0-130 [facility] Comment on above: Order Comment: Order Date: 11/13/23 Order Info: [id number] - CMP Order Info: [id number] - LIPID Performed By: #### L [id number], [id number], [id number], L100.0100 #### [facility] [address] [place], [address] Absolute lymphocyte countOrd ered By: Martinez Puga on 07-18-2023 Lymphocytes Auto (Unsp spec) [#/Vol] 1.36 10*3/uL 0.83-4.51 [facility] Automated lymphocyte count a s percentage of total leukocytesOrdered By: Martinez Puga on 07-18-2023 Lymphocytes/100 WBC Auto (Unsp spec) 22.8 % 19-41 [facility] Basophil percentageOrdered B y: Martinez Puga on 07-18-2023 Basophil percentage 0-5 SEEN /hpf 0-5 [facility] Basophil percentage 2.9 mg/dL 2.5-4.9 [facility] Basophils/100 WBC (Bld) 0.7 % 0-1 [facility] Bilirubin [Mass/Vol] 0.40 mg/dL 0.20-1.00 [facility] Comment on above: For patients on eltr ombopag therapy, use of Dimension [place] TBIL is not recommended. Chloride [Moles/Vol] 102 mmol/L 98-107 [facility] Cholesterol [Mass/Vol] 199 mg/dL <200 [facility] Comment on above: <200 mg/dL Desirable 200-240 mg/dL Borderline >240 mg/dL High Risk Eosinophils/100 WBC (Bld) 1.7 % 0-5 [facility] Glucose [Mass/Vol] 253 mg/dL 74-106 [facility] Comment on above: Glucose result great er than or equal to 200 mg/dLsuggests DIABETES MELLITUS per A.D.A. criteria. Hemoglobin (Bld) [Mass/Vol] 13.2 g/dL 13.0-16.5 [facility] Monocytes/100 WBC (Bld) 10.9 % 0-10 [facility] Neutrophils (Bld) [#/Vol] 3.8 10*3/uL 2.0-7.7 [facility] Neutrophils/100 WBC (Bld) 63.1 % 47-70 [facility] Potassium [Moles/Vol] 4.4 mmol/L 3.5-5.1 [facility] Protein [Mass/Vol] 7.6 g/dL 6.4-8.2 [facility] Sodium [Moles/Vol] 137 mmol/L 136-145 [facility] Triglyceride [Mass/Vol] 368 mg/dL <199 [facility] Comment on above: The drugs N-Acetylcy steine and Metamizole may falsely depress this assay.Serum Triglycerides Reference Interval Normal <150 mg/dL Borderline high 150 - 199 mg/dL High 200 - 499 mg/dL Very High > or = 500 mg/dL WBC (Bld) [#/Vol] 6.0 10*3/uL 4.4-11.0 [facility] Bilirubin Test strip Ql (U)O rdered By: Martinez Puga on 07-18-2023 Bilirubin Ql (U) Negative Negative [facility] Determination of erythrocyte mean corpuscular volume (MCV)Ordered By: Martinez Puga on 07-18-2023 MCV (RBC) [Entitic vol] 93.3 fL 80-94 [facility] Erythrocyte distribution wid th ratioOrdered By: Martinez Puga on 07-18-2023 Erythrocyte distribution width (RBC) [Ratio] 12.9 % 11.6-14.6 [facility] Erythrocyte distribution wid th standard deviationOrdered By: Martinez Puga on 07-18-2023 Erythrocyte distribution width (RBC) [Entitic vol] 44.0 fL 35.1-43.9 [facility] Hematocrit Auto (Bld) [Volum e fraction]Ordered By: Martinez Puga on 07-18-2023 Hematocrit (Bld) [Volume fraction] 41.9 % 40-54 [facility] Immature granulocytes/100 WB C Auto (Bld)Ordered By: Martinez Puga on 07-18-2023 Immature granulocytes/100 WBC (Bld) 0.800 % 0.0-0.9 [facility] Comment on above: IG% - Immature Granu locytes (promyelocytes, myelocytes and metamyelocytes) > 1% indicates that a LEFT SHIFT is Present. Ketones Test strip Ql (U)Ord ered By: Martinez Puga on 07-18-2023 Ketones Ql (U) Negative Negative [facility] - Chemistry and C hemistry - challengeOrdered By: Martinez Puga on 07-18-2023 Albumin/Globulin [Mass ratio] 0.9 {ratio} 0.9-2.4 [facility] ALP [Catalytic activity/Vol] 36 U/L 45-117 [facility] ALT [Catalytic activity/Vol] 34 U/L 16-61 [facility] Cholesterol in HDL [Mass/Vol] 49 mg/dL >40 [facility] Comment on above: The drugs N-Acetylcy steine and Metamizole may falsely depress this assay. Reference Range HDL <40 mg/dL Low HDL Cholesterol HDL >or= 60 mg/dL High HDL Cholesterol Cholesterol in LDL [Mass/Vol] 76 mg/dL 0-130 [facility] CO2 [Moles/Vol] 30.0 mmol/L 21.0-32.0 [facility] Globulin (S) [Mass/Vol] 4.1 g/dL 2.2-4.2 [facility] Urea nitrogen/Creatinine [Mass ratio] 22.1 mg/mg 10-20 [facility] - Hematology and Cell countsOrdered By: Martinez Puga on 07-18-2023 MCH (RBC) [Entitic mass] 29.4 pg 27.0-32.0 [facility] MCHC (RBC) [Mass/Vol] 31.5 g/dL 32-36 [facility] Nucleated RBC/100 WBC (Bld) [Ratio] 0 % 0-5 [facility] Platelet mean volume (Bld) [Entitic vol] 11.3 fL 6.2-12.0 [facility] Platelets (Bld) [#/Vol] 199 10*3/uL 150-450 [facility] Mucus LM Ql (Urine sed)Order ed By: Martinez Puga on 07-18-2023 Mucus Ql (Urine sed) 0 SEEN /hpf [facility] Nitrite Test strip Ql (U)Ord ered By: Martinez Puga on 07-18-2023 Nitrite Ql (U) Negative Negative [facility] No Panel InformationOrdered By: Martinez Puga on 07-18-2023 Estimated GFR (MDRD) Amer 61 mL/min >60 [facility] Comment on above: GFR Calc Estimated GFR (MDRD) Non-Af Amer 50 mL/min >60 [facility] Comment on above: Non- GFR Calc Parathyroid Hormone (Intact) 77.8 pg/mL 18.4-80.1 [facility] Urine Microalbumin/Creatinine Ratio 236.5 mg/g CRE <30 [facility] Urine RBC 0 SEEN /hpf 0-5 [facility] Vitamin D 25-Hydroxy 41.2 ng/mL [facility] Comment on above: Vitamin D 25(OH) Sta tus Range Deficiency <20 ng/mL (50nmol/L) Insufficiency 20 - 30 ng/mL (50 - 75 nmol/L) Sufficiency 30 - 100 ng/mL (75 - 250 nmol/L) Toxicity >100 ng/mL (>250 nmol/L) VLDL Cholesterol 74 mg/dL 5-40 [facility] Protein Test strip Ql (U)Ord ered By: Martinez Puga on 07-18-2023 Protein Ql (U) 15 mg/dl Negative [facility] RBC Auto (Bld) [#/Vol]Ordere d By: Martinez Puga on 07-18-2023 RBC (Bld) [#/Vol] 4.49 10*6/uL 4.6-6.2 [facility] Serum or plasma calcium brenden urement (mass/volume)Ordered By: Martinez Puga on 07-18-2023 Calcium [Mass/Vol] 9.2 mg/dL 8.5-10.1 [facility] Serum or plasma creatinine m easurement (mass/volume)Ordered By: Martinez Puga on 07-18-2023 Creatinine [Mass/Vol] 1.45 mg/dL 0.70-1.30 [facility] Comment on above: The validity of the calculated GFR & GFRAA in patients over 70 years has not been determined. Clinical correlation is essential. Serum or plasma urea nitroge n measurement (mass/volume)Ordered By: Martinez Puga on 07-18-2023 Urea nitrogen [Mass/Vol] 32 mg/dL 7-18 [facility] Squamous epithelial cells de tection in urine sediment by light microscopyOrdered By: Martinez Puga on 07-18-2023 Epithelial cells.squamous LM Ql (Urine sed) 0-5 SEEN /hpf 0-5 [facility] Thin prep Papanicolaou smear with manual screeningOrdered By: Martinez Puga on 07-18-2023 Protein (U) [Mass/Vol] 21.5 mg/dL 0.0-11.8 [facility] Thin prep Papanicolaou smear with manual screening 3.5 g/dL 3.2-5.0 [facility] Thin prep Papanicolaou smear with manual screening 25 U/L 15-37 [facility] Thin prep Papanicolaou smear with manual screening 5 5-15 [facility] Thin prep Papanicolaou smear with manual screening 105.0 mg/L NO RANGE EST. [facility] Urine blood detectionOrdered By: Martinez Puga on 07-18-2023 RBC Ql (U) Negative Negative [facility] Urine clarityOrdered By: Luke Puga on 07-18-2023 Clarity (U) Clear Clear [facility] Urine color determinationOrd ered By: Martinez Puga on 07-18-2023 Color (U) Yellow Yellow [facility] Urine creatinine measurement (mass/volume)Ordered By: Martinez Puga on 07-18-2023 Creatinine (U) [Mass/Vol] 44.40 mg/dL NO RANGE EST. [facility] Urine glucose detectionOrder ed By: Martinez Puga on 07-18-2023 Glucose Ql (U) 1000 mg/dl Normal [facility] Urine leukocyte esterase det ection by dipstickOrdered By: Martinez Puga on 07-18-2023 Leukocyte esterase Test strip Ql (U) 25 /ul Negative [facility] Urine pHOrdered By: Martinez cruz on 07-18-2023 pH (U) 7.0 [pH] 5.0 - 8.0 [facility] Urine protein/creatinine mas s ratioOrdered By: Martinez Puga on 07-18-2023 Protein/Creatinine (U) [Mass ratio] 484 mg/g CRE 0-200 [facility] Urine sediment bacteria coun t by microscopy (number/high power field)Ordered By: Martinez Puga on 07-18-2023 Bacteria LM.HPF (Urine sed) [#/Area] RARE /hpf None Seen [facility] Urine specific gravity measu rementOrdered By: Martinez Puga on 07-18-2023 Specific gravity (U) [Rel density] 1.010 1.002-1.030 [facility] Urine urobilinogen measureme ntOrdered By: Martinez Puga on 07-18-2023 Urobilinogen Ql (U) Normal mg/dl Normal [facility] Whole blood hemoglobin A1c/t otal hemoglobin ratio (mass fraction)Ordered By: Martinez Puga on 07-18-2023 HbA1c (Bld) [Mass fraction] 7.7 % 3.8-5.6 [facility] Comment on above: Normal < 5.7 % Predi abetic 5.7 - 6.4 % Diabetic >or= 6.5 % Please note range changes. Absolute lymphocyte countOrd ered By: Martinez Puga on 04-17-2023 Lymphocytes Auto (Unsp spec) [#/Vol] 2.02 10*3/uL 0.83-4.51 [facility] Automated lymphocyte count a s percentage of total leukocytesOrdered By: Martinez Puga on 04-17-2023 Lymphocytes/100 WBC Auto (Unsp spec) 28.4 % 19-41 [facility] Basophil percentageOrdered B y: Martienz Puga on 04-17-2023 Basophils/100 WBC (Bld) 0.6 % 0-1 [facility] Bilirubin [Mass/Vol] 0.40 mg/dL 0.20-1.00 [facility] Comment on above: For patients on eltr ombopag therapy, use of Dimension [place] TBIL is not recommended. Chloride [Moles/Vol] 103 mmol/L 98-107 [facility] Cholesterol [Mass/Vol] 252 mg/dL <200 [facility] Comment on above: <200 mg/dL Desirable 200-240 mg/dL Borderline >240 mg/dL High Risk Eosinophils/100 WBC (Bld) 2.1 % 0-5 [facility] Glucose [Mass/Vol] 188 mg/dL 74-106 [facility] Comment on above: Fasting Glucose resu lt greater than or equal to 126 mg/dL suggests DIABETES MELLITUS per A.D.A. criteria. Hemoglobin (Bld) [Mass/Vol] 13.6 g/dL 13.0-16.5 [facility] Monocytes/100 WBC (Bld) 10.8 % 0-10 [facility] Neutrophils (Bld) [#/Vol] 4.1 10*3/uL 2.0-7.7 [facility] Neutrophils/100 WBC (Bld) 57.4 % 47-70 [facility] Potassium [Moles/Vol] 4.7 mmol/L 3.5-5.1 [facility] Protein [Mass/Vol] 7.9 g/dL 6.4-8.2 [facility] Sodium [Moles/Vol] 136 mmol/L 136-145 [facility] Triglyceride [Mass/Vol] 426 mg/dL <199 [facility] Comment on above: The drugs N-Acetylcy steine and Metamizole may falsely depress this assay. TRIGLYCERIDE IS GREATER THAN 400 mg/dL. LDL RESULT IS INVALID AND WILL NOT BE REPORTED.Serum Triglycerides Reference Interval Normal <150 mg/dL Borderline high 150 - 199 mg/dL High 200 - 499 mg/dL Very High > or = 500 mg/dL WBC (Bld) [#/Vol] 7.1 10*3/uL 4.4-11.0 [facility] Determination of erythrocyte mean corpuscular volume (MCV)Ordered By: Martinez Puga on 04-17-2023 MCV (RBC) [Entitic vol] 92.2 fL 80-94 [facility] Erythrocyte distribution wid th ratioOrdered By: Martinez Puga on 04-17-2023 Erythrocyte distribution width (RBC) [Ratio] 12.8 % 11.6-14.6 [facility] Erythrocyte distribution wid th standard deviationOrdered By: Martinez Puga on 04-17-2023 Erythrocyte distribution width (RBC) [Entitic vol] 43.3 fL 35.1-43.9 [facility] Hematocrit Auto (Bld) [Volum e fraction]Ordered By: Martinez Puga on 04-17-2023 Hematocrit (Bld) [Volume fraction] 42.7 % 40-54 [facility] Immature granulocytes/100 WB C Auto (Bld)Ordered By: Martinez Puga on 04-17-2023 Immature granulocytes/100 WBC (Bld) 0.700 % 0.0-0.9 [facility] Comment on above: IG% - Immature Granu locytes (promyelocytes, myelocytes and metamyelocytes) > 1% indicates that a LEFT SHIFT is Present. Laboratory - Chemistry and C hemistry - challengeOrdered By: Martinez Puga on 04-17-2023 Albumin/Globulin [Mass ratio] 0.8 {ratio} 0.9-2.4 [facility] ALP [Catalytic activity/Vol] 42 U/L 45-117 [facility] ALT [Catalytic activity/Vol] 27 U/L 16-61 [facility] Cholesterol in HDL (Body fld) [Mass/Vol] 46 mg/dL >40 [facility] Comment on above: The drugs N-Acetylcy steine and Metamizole may falsely depress this assay. Reference Range HDL <40 mg/dL Low HDL Cholesterol HDL >or= 60 mg/dL High HDL Cholesterol Cholesterol in LDL (Body fld) [Moles/Vol] [facility] Comment on above: Test not performed Cholesterol in VLDL Calc [Moles/Vol] [facility] Comment on above: Test not performed CO2 [Moles/Vol] 27.0 mmol/L 21.0-32.0 [facility] Globulin (S) [Mass/Vol] 4.4 g/dL 2.2-4.2 [facility] Prostate specific Ag IA [Mass/Vol] 1.23 ng/mL 0.00-4.00 [facility] Comment on above: This test was perfor med using the TPSA assay method for the[facility] Values obtained with differentassay methods cannot be used interchangably.When changing PSA assays in the course of monitoring apatient, additional sequential testing should be carriedout to confirm baseline values. Urea nitrogen/Creatinine [Mass ratio] 16.6 mg/mg 10-20 [facility] - Hematology and Cell countsOrdered By: Martinez Puga on 04-17-2023 MCH (RBC) [Entitic mass] 29.4 pg 27.0-32.0 [facility] MCHC (RBC) [Mass/Vol] 31.9 g/dL 32-36 [facility] Nucleated RBC/100 WBC (Bld) [Ratio] 0 % 0-5 [facility] Platelets (Bld) [#/Vol] 252 10*3/uL 150-450 [facility] No Panel InformationOrdered By: Martinez Puga on 04-17-2023 Estimated GFR (MDRD) Amer 61 mL/min >60 [facility] Comment on above: GFR Calc Estimated GFR (MDRD) Non-Af Amer 50 mL/min >60 [facility] Comment on above: Non- GFR Calc Platelet mean volume Krishna-Ec ker (Bld) [Entitic vol]Ordered By: Martinez Puga on 04-17-2023 Platelet mean volume (Bld) [Entitic vol] 11.1 fL 6.2-12.0 [facility] RBC Auto (Bld) [#/Vol]Ordere d By: Martinez Puga on 04-17-2023 RBC (Bld) [#/Vol] 4.63 10*6/uL 4.6-6.2 [facility] Serum or plasma calcium brenden urement (mass/volume)Ordered By: Martinez Puga on 04-17-2023 Calcium [Mass/Vol] 9.5 mg/dL 8.5-10.1 [facility] Serum or plasma creatinine m easurement (mass/volume)Ordered By: Martinez Puga on 04-17-2023 Creatinine [Mass/Vol] 1.45 mg/dL 0.70-1.30 [facility] Comment on above: The validity of the calculated GFR & GFRAA in patients over 70 years has not been determined. Clinical correlation is essential. Serum or plasma urea nitroge n measurement (mass/volume)Ordered By: Martinez Puga on 04-17-2023 Urea nitrogen [Mass/Vol] 24 mg/dL 7-18 [facility] Thin prep Papanicolaou smear with manual screeningOrdered By: Martinez Puga on 04-17-2023 Thin prep Papanicolaou smear with manual screening 3.5 g/dL 3.2-5.0 [facility] Thin prep Papanicolaou smear with manual screening 22 U/L 15-37 [facility] Thin prep Papanicolaou smear with manual screening 6 5-15 [facility] Whole blood hemoglobin A1c/t otal hemoglobin ratio (mass fraction)Ordered By: Martinez Puga on 04-17-2023 HbA1c (Bld) [Mass fraction] 8.6 % 3.8-5.6 [facility] Comment on above: Normal < 5.7 % Predi abetic 5.7 - 6.4 % Diabetic >or= 6.5 % Please note range changes. Absolute lymphocyte countOrd ered By: Martinez Puga on 12-12-2022 Lymphocytes Auto (Unsp spec) [#/Vol] 1.47 10*3/uL 0.83-4.51 [facility] Basophil percentageOrdered B y: Martinez Rivasanthony on 12-12-2022 Basophils/100 WBC (Bld) 0.5 % 0-1 [facility] Bilirubin [Mass/Vol] 0.30 mg/dL 0.20-1.00 [facility] Comment on above: For patients on eltr ombopag therapy, use of Dimension [place] TBIL is not recommended. Chloride [Moles/Vol] 102 mmol/L 98-107 [facility] Cholesterol [Mass/Vol] 308 mg/dL <200 [facility] Comment on above: <200 mg/dL Desirable 200-240 mg/dL Borderline >240 mg/dL High Risk Eosinophils/100 WBC (Bld) 2.0 % 0-5 [facility] Glucose [Mass/Vol] 215 mg/dL 74-106 [facility] Comment on above: Glucose result great er than or equal to 200 mg/dLsuggests DIABETES MELLITUS per A.D.A. criteria. Neutrophils (Bld) [#/Vol] 4.3 10*3/uL 2.0-7.7 [facility] Neutrophils/100 WBC (Bld) 65.8 % 47-70 [facility] Potassium [Moles/Vol] 4.7 mmol/L 3.5-5.1 [facility] Protein [Mass/Vol] 7.8 g/dL 6.4-8.2 [facility] Sodium [Moles/Vol] 136 mmol/L 136-145 [facility] Triglyceride [Mass/Vol] 589 mg/dL <199 [facility] Comment on above: The drugs N-Acetylcy steine and Metamizole may falsely depress this assay. TRIGLYCERIDE IS GREATER THAN 400 mg/dL. LDL RESULT IS INVALID AND WILL NOT BE REPORTED.Serum Triglycerides Reference Interval Normal <150 mg/dL Borderline high 150 - 199 mg/dL High 200 - 499 mg/dL Very High > or = 500 mg/dL WBC (Bld) [#/Vol] 6.5 10*3/uL 4.4-11.0 [facility] Blood erythrocytes count (nu mber/volume)Ordered By: Martinez Puga on 12-12-2022 RBC (Bld) [#/Vol] 4.53 10*6/uL 4.6-6.2 [facility] Blood hemoglobin measurement (mass/volume)Ordered By: Martinez Puga on 12-12-2022 Hemoglobin (Bld) [Mass/Vol] 13.5 g/dL 13.0-16.5 [facility] Blood lymphocytes/100 leukoc ytesOrdered By: Martinez Puga on 12-12-2022 Lymphocytes/100 WBC (Bld) 22.7 % 19-41 [facility] Blood monocytes/100 leukocyt esOrdered By: Martinez Puga on 12-12-2022 Monocytes/100 WBC (Bld) 8.2 % 0-10 [facility] Blood platelet mean volumeOr dered By: Martinez Puga on 12-12-2022 Platelet mean volume (Bld) [Entitic vol] 11.9 fL 6.2-12.0 [facility] Determination of erythrocyte mean corpuscular volume (MCV)Ordered By: Martinez Puga on 12-12-2022 MCV (RBC) [Entitic vol] 93.6 fL 80-94 [facility] Hematocrit Auto (Bld) [Volum e fraction]Ordered By: Martinez Puga on 12-12-2022 Hematocrit (Bld) [Volume fraction] 42.4 % 40-54 [facility] Laboratory - Chemistry and C hemistry - challengeOrdered By: Martinez Puga on 12-12-2022 ALP [Catalytic activity/Vol] 45 U/L 45-117 [facility] ALT [Catalytic activity/Vol] 32 U/L 16-61 [facility] CO2 [Moles/Vol] 29.0 mmol/L 21.0-32.0 [facility] Globulin (S) [Mass/Vol] 4.4 g/dL 2.2-4.2 [facility] Urea nitrogen/Creatinine [Mass ratio] 16.3 mg/mg 10-20 [facility] Laboratory - Hematology and Cell countsOrdered By: Martinez Puga on 12-12-2022 Erythrocyte distribution width (RBC) [Entitic vol] 45.1 fL 35.1-43.9 [facility] Erythrocyte distribution width (RBC) [Ratio] 13.2 % 11.6-14.6 [facility] Immature granulocytes/100 WBC (Bld) 0.800 % 0.0-0.9 [facility] Comment on above: IG% - Immature Granu locytes (promyelocytes, myelocytes and metamyelocytes) > 1% indicates that a LEFT SHIFT is Present. MCH (RBC) [Entitic mass] 29.8 pg 27.0-32.0 [facility] Nucleated RBC/100 WBC (Bld) [Ratio] 0 % 0-5 [facility] MCHC Auto (RBC) [Mass/Vol]Or dered By: Martinez Puga on 12-12-2022 MCHC (RBC) [Mass/Vol] 31.8 g/dL 32-36 [facility] No Panel InformationOrdered By: Martinez Puga on 12-12-2022 Estimated GFR (MDRD) Amer 63 mL/min >60 [facility] [place] Comment on above: GFR Calc Estimated GFR (MDRD) Non-Af Amer 52 mL/min >60 [facility] Comment on above: Non- GFR Calc Thyroid Stimulating Hormone (TSH) 1.99 uIU/mL 0.358-3.74 [facility] Urine Microalbumin/Creatinine Ratio 365.8 mg/g CRE <30 [facility] Platelets bldOrdered By: Luke Puga on 12-12-2022 Platelets (Bld) [#/Vol] 250 10*3/uL 150-450 [facility] Serum or plasma albumin brenden urement (mass/volume)Ordered By: Martinez Puga on 12-12-2022 Albumin [Mass/Vol] 3.4 g/dL 3.2-5.0 [facility] Serum or plasma albumin/glob ulin mass ratioOrdered By: Martinez Puga on 12-12-2022 Albumin/Globulin [Mass ratio] 0.8 {ratio} 0.9-2.4 [facility] Serum or plasma calcium brenden urement (mass/volume)Ordered By: Martinez Puga on 12-12-2022 Calcium [Mass/Vol] 9.5 mg/dL 8.5-10.1 [facility] Serum or plasma cholesterol in HDL measurement (mass/volume)Ordered By: Martinez Puga on 12-12-2022 Cholesterol in HDL [Mass/Vol] 40 mg/dL >40 [facility] Comment on above: The drugs N-Acetylcy steine and Metamizole may falsely depress this assay. Reference Range HDL <40 mg/dL Low HDL Cholesterol HDL >or= 60 mg/dL High HDL Cholesterol Serum or plasma cholesterol in VLDL measurement (mass/volume)Ordered By: Martinez Puga on 12-12-2022 Cholesterol in VLDL [Mass/Vol] TNP [facility] Comment on above: Test not performed Serum or plasma creatinine m easurement (mass/volume)Ordered By: Martinez Puga on 12-12-2022 Creatinine [Mass/Vol] 1.41 mg/dL 0.70-1.30 [facility] Comment on above: The validity of the calculated GFR & GFRAA in patients over 70 years has not been determined. Clinical correlation is essential. Serum or plasma low density lipoprotein (LDL) cholesterol measurement (mass/volume)Ordered By: Martinez Puga on 12-12-2022 Cholesterol in LDL [Mass/Vol] [facility] Comment on above: Test not performed Serum or plasma urea nitroge n measurement (mass/volume)Ordered By: Martinez Puga on 12-12-2022 Urea nitrogen [Mass/Vol] 23 mg/dL 7-18 [facility] Thin prep Papanicolaou smear with manual screeningOrdered By: Martinez Puga on 12-12-2022 Thin prep Papanicolaou smear with manual screening 18 U/L 15-37 [facility] Thin prep Papanicolaou smear with manual screening 5 5-15 [facility] Thin prep Papanicolaou smear with manual screening 417.0 mg/L NO RANGE EST. [facility] Urine creatinine measurement (mass/volume)Ordered By: Martinez Puga on 12-12-2022 Creatinine (U) [Mass/Vol] 114.00 mg/dL NO RANGE EST. [facility] Whole blood hemoglobin A1c/t otal hemoglobin ratio (mass fraction)Ordered By: Martinez Puga on 12-12-2022 HbA1c (Bld) [Mass fraction] 7.7 % 3.8-5.6 [facility] Comment on above: Normal < 5.7 % Predi abetic 5.7 - 6.4 % Diabetic >or= 6.5 % Please note range changes. ALLIED HEALTHon 12-03-2022 [facility] HNO ID: [id number] Author: Missy Nino RT(R) Service: ? Author Type: Technologist Type: Allied Health Filed: 12/03/2022 10:01 AM Note Text: Radiology Service Progress Note PATIENT NAME: Vincenzo Bucio DATE OF SERVICE: December 03, 2022 TIME: 10:01 AM PATIENT IDENTITY VERIFICATION COMPLETED USING TWO (2) IDENTIFIERS: Name and Date of confirmed by patient verbally. FALL SCREENING: Has the patient had 2 falls in the last year or 1 fall with injury or currently using an Ambulatory Assistive Device (Walker, Cane, Wheelchair, Crutches, etc.)? Emergency Room Patient: Screened in ED PATIENT GENDER DATA: Male PATIENT RELEVANT IMPLANT DATA REVIEWED: Not Applicable RADIOLOGY DEPARTMENT: Ultrasound PERIPHERAL IV DATA: Not applicable SIGNED BY: Missy Nino RDMS, RVT December 03, 2022 10:01 AM Normal [facility] ED NOTEon 12-03-2022 ED NOTE HNO ID: [id number] Author: Beth Malone RN Service: ? Author Type: Registered Nurse Type: ED Notes Filed: 12/03/2022 10:19 AM Note Text: D/c instructions reviewed with pt who verbalized understanding. Pts vss and left ED ual and in stable condition. Normal [facility] ED NOTE HNO ID: [id number] Author: Jailene Shannon, ENOCH Service: Nursing Author Type: Registered Nurse Type: ED Notes Filed: 12/03/2022 8:58 AM Note Text: The patient reports left calf pain radiating into his thigh x 1 week. He has not had any injury nor has he changed his level activity. The patient presents for an ultrasound to rule out DVT. This is based on his sister telling him he should be checked for this. The patient has no history of emboli. Normal [facility] ED PROV NOTEon 12-03-2022 ED PROV NOTE HNO ID: [id number] Author: Aníbal Sandy MD Service: Emergency Medicine Author Type: Physician Type: ED Provider Notes Filed: 12/03/2022 2:07 PM Note Text: ED Provider Note Patient Name: Vincenzo Bucio : 1950 SERVICE DATE: 12/03/22 History Patient presents with: Leg Pain This is a 72-year-old presenting with left calf pain. He states has been going on approximately a week's in his left calf feels like it radiates up to his distal posterior thigh. It is exacerbated by walking up stairs and ambulation of any kind but definitely worsened with inclines and stairs. He denies any particular injury or overuse or change in his activity level. He states that his sister told him he should have it checked out for a blood clot. He denies any history of PE or DVT. He has no chest pain or shortness of breath. He denies any redness or swelling. No recent travel or hospitalizations. He has no pain in other areas of his body presently. No pain in the back no numbness or tingling. No weakness. PAST MEDICAL HISTORY Diagnosis Date Adult body mass index 30+ Anogenital warts Bilateral cataracts Corns and callus COVID-19 12/05/2020 minimal symptoms Essential hypertension 2000 Essential tremor 2014 Hemorrhoids Hyperlipidemia, unspecified 01/03/2016 Moderate to severe aortic stenosis 07/09/2022 Nodule of kidney 05/05/2020 Dr. Najma Smith, nephrology. Noncompliance with treatment Plantar fasciitis Polyp of colon Tinea corporis Type 2 diabetes mellitus (HCC) 1999 PAST SURGICAL HISTORY Procedure Laterality Date COLONOSCOPY 09/12/2015 Dr. Colmenares. No polyps, repeat in 7 years. 2019. COLONOSCOPY 07/05/2022 repeat in 1 year, due to multiple polyps. EYE SURGERY HX PAST SURGICAL HISTORY OF 05/29/2021 Removed Right Cataract PAST SURGICAL HISTORY OF 11/27/2018 Removed Left Cataract FAMILY HISTORY Problem Relation Age of Onset other (HTN) Brother Cancer Brother liver cancer other (Renal Failure) Brother Breast Cancer Sister other (Melanoma) Sister other (Other) Father Social History Tobacco Use Smoking status: Never Smokeless tobacco: Never Vaping Use Vaping Use: Never used Substance and Sexual Activity Alcohol use: No Drug use: No Sexual activity: Not on file ALLERGIES No Known Allergies Review of systems: All other pertinent systems reviewed and negative. Physical Exam Vitals [12/03/22 0850] BP Pulse Temp Temp src Resp SpO2 Weight Height 146/89 82 36.2 ?C (97.2 ?F) Temporal Art 16 98 % 86.2 kg (190 lb) -- Physical Exam Vitals and nursing note reviewed. Constitutional: Appearance: He is well-developed. He is not ill-appearing, toxic-appearing or diaphoretic. HENT: Head: Normocephalic and atraumatic. Right Ear: Tympanic membrane, ear canal and external ear normal. Left Ear: Tympanic membrane, ear canal and external ear normal. Mouth/Throat: Mouth: Mucous membranes are moist. Mucous membranes are not dry. Pharynx: Uvula midline. No oropharyngeal exudate or posterior oropharyngeal erythema. Eyes: General: No scleral icterus. Extraocular Movements: Extraocular movements intact. Conjunctiva/sclera: Conjunctivae normal. Right eye: Right conjunctiva is not injected. Left eye: Left conjunctiva is not injected. Pupils: Pupils are equal, round, and reactive to light. Neck: Vascular: No JVD. Cardiovascular: Rate and Rhythm: Normal rate and regular rhythm. Pulses: Normal pulses. Femoral pulses are 2+ on the right side and 2+ on the left side. Popliteal pulses are 2+ on the left side. Dorsalis pedis pulses are 2+ on the right side and 2+ on the left side. Posterior tibial pulses are 2+ on the right side and 2+ on the left side. Heart sounds: Normal heart sounds. No murmur heard. No friction rub. No gallop. Pulmonary: Effort: Pulmonary effort is normal. No respiratory distress. Breath sounds: Normal breath sounds. No stridor. No wheezing, rhonchi or rales. Abdominal: General: Bowel sounds are normal. There is no distension. Palpations: Abdomen is soft. Tenderness: There is no abdominal tenderness. There is no right CVA tenderness or left CVA tenderness. Musculoskeletal: General: Tenderness (Very minimal tenderness in the proximal gastrocnemius both medial and lateral heads left leg.) present. No swelling. Cervical back: Neck supple. Comments: No fullness in the popliteal fossa no bruit noted either Lymphadenopathy: Cervical: No cervical adenopathy. Skin: General: Skin is warm and dry. Capillary Refill: Capillary refill takes less than 2 seconds. Findings: No rash. Neurological: Mental Status: He is alert and oriented to person, place, and time. Cranial Nerves: No cranial nerve deficit. Sensory: No sensory deficit. Motor: No weakness. Gait: Gait normal. Psychiatric: Mood and Affect: Mood normal. Diagnostic Testing ED Labs Ordered and Reviewed - N (more content not included)... Normal [facility] US DVT LOWER LTon 12-03-2022 US DVT LOWER LT * * *Final Report* * * DATE OF EXAM: Dec 03 2022 10:05AM LDU 1006 - US DVT LOWER LT / PROCEDURE REASON: Leg deep vein thrombosis (DVT) suspected * * * * Physician Interpretation * * * * EXAMINATION: LEFT LOWER EXTREMITY DEEP VENOUS ULTRASOUND WITH DOPPLER IMAGING CLINICAL HISTORY: Left leg pain TECHNIQUE: Grayscale with compression maneuvers, color Doppler and spectral Doppler imaging of the left proximal deep veins was performed. Grayscale with compression maneuvers of the peroneal and posterior tibial veins was performed. The left great and small saphenous veins were evaluated at their insertion to the deep system. The contralateral common femoral vein was imaged for comparison. Images were obtained and stored in a permanent archive. MQ: [id number] COMPARISON: None RESULT: LEFT LOWER EXTREMITY PROXIMAL DEEP VEINS Distal External Iliac, Common Femoral and proximal Profunda Veins: Compression: Normal Doppler: Normal, spontaneous respirophasic flow. Normal response to augmentation. Femoral vein: Compression: Normal Doppler: Normal, spontaneous flow. Normal response to augmentation. Popliteal vein: Compression: Normal Doppler: Normal, spontaneous flow. Normal response to augmentation. CALF DEEP VEINS Peroneal veins: Normal compression. Posterior tibial veins: Normal compression. Gastrocnemius and Soleal veins: Not imaged. SUPERFICIAL VEINS Great saphenous: Patent and compressible at insertion into common femoral vein; not otherwise assessed. Small Saphenous: Not imaged RIGHT LOWER EXTREMITY (FOR COMPARISON) Common Femoral Vein: Compression: Normal Doppler: Normal, spontaneous respirophasic flow. Normal response to augmentation. IMPRESSION: Negative study for proximal DVT in the left lower extremity. Negative study for calf DVT in the left lower extremity. Negative study for superficial thrombophlebitis in the imaged segments of the left lower extremity. Singer And Unloader: JANES Transcribe Date/Time: Dec 03 2022 10:05A Dictated by : GURINDER CLINE MD This examination was interpreted and the report reviewed and electronically signed by: GURINDER CLINE MD on Dec 03 2022 10:06AM EST [id number] Normal [facility] CBC panel Auto (Bld)on 06-20 Erythrocyte distribution width (RBC) [Ratio] 12.8 % 11.5 - 15.0 % [facility] Hematocrit (Bld) [Volume fraction] 41.3 % 39.0 - 51.0 % [facility] Hemoglobin (Bld) [Mass/Vol] 14.0 g/dL 13.0 - 17.0 g/dL [facility] MCH (RBC) [Entitic mass] 30.4 pg 26. 0 - 34.0 pg [facility] MCHC (RBC) [Mass/Vol] 33.9 g/dL 30.5 - 36.0 g/dL [facility] MCV (RBC) [Entitic vol] 89.8 fL 80.0 - 100.0 fL [facility] Nucleated RBC (Bld) [#/Vol] <0.01 k/uL [facility] Platelet mean volume (Bld) [Entitic vol] 11.4 fL 9.0 - 12.7 fL [facility] Platelets (Bld) [#/Vol] 232 10*3/uL 150 - 400 k/uL [facility] RBC (Bld) [#/Vol] 4.60 10*6/uL 4.20 - 6.0 0 m/uL [facility] WBC (Bld) [#/Vol] 8.53 10*3/uL 3.70 - 11. 00 k/uL [facility] Basic metabolic 2000 panelon 03-21-2022 Anion gap [Moles/Vol] 12 mmol/L 9 - 18 mmol/L [facility] Calcium [Mass/Vol] 10.0 mg/dL 8.5 - 10. 2 mg/dL [facility] Chloride [Moles/Vol] 101 mmol/L 97 - 10 5 mmol/L [facility] CO2 [Moles/Vol] 24 mmol/L 22 - 30 mmol/L [facility] Creatinine [Mass/Vol] 1.39 mg/dL High 0.73 - 1.22 mg/dL [facility] Estimated Glomerular Filtration Rate 53 mL/min/1.73m Low >=60 mL/min/1.73m [facility] Glucose [Mass/Vol] 176 mg/dL High 74 - 99 mg/dL [facility] Potassium [Moles/Vol] 5.1 mmol/L 3.7 - 5.1 mmol/L [facility] Sodium [Moles/Vol] 137 mmol/L 136 - 144 mmol/L [facility] Urea nitrogen [Mass/Vol] 28 mg/dL High 9 - 24 mg/d L [facility] HbA1c (Bld)on 03-21-2022 Average glucose Estimated from glycated hemoglobin (Bld) [Mass/Vol] 197 mg/dL [facility] HbA1c (Bld) [Mass fraction] 8.5 % High 4.3 - 5.6 % [facility] BMP - EXTERNALon 09-04-2021 ANION GAP [facility] BICARBONATE [facility] GFR AFR AMER 66 mL/MIN [facility] GFR/1.73 sq M.predicted among non-blacks MDRD (S/P/Bld) [Vol rate/Area] 55 mL/min/{1.73_m2} [facility] Urea Nitrogen [facility] Basophil percentageon 2021 Basophil percentage 3.0 mg/dL 2.5-4.9 [facility] Work Phone: Chloride [Moles/Vol] 100 mmol/L 98 - 10 7 MEQ/L [facility] Work Phone: Glucose [Mass/Vol] 194 mg/dL Abnormal 74 - 106 MG/DL [facility] Work Phone: Comment on above: Fasting Glucose resu lt greater than or equal to 126 mg/dL suggests DIABETES MELLITUS per A.D.A. criteria. Potassium [Moles/Vol] 4.3 mmol/L 3.5 - 5.1 MEQ/L [facility] Work Phone: Sodium [Moles/Vol] 134 mmol/L Abnormal 136 - 145 MEQ/L [facility] Work Phone: EX ALB/CREAT RND URon 2021 Pro/Creat Ratio 13.8 [facility] Protein.monoclonal (U) [Mass/Vol] 13.8 mg/dL Neg mg/dL [facility] Laboratory - Chemistry and C hemistry - challengeon 09-04-2021 CO2 [Moles/Vol] 27.0 mmol/L 21.0-32.0 [facility] Work Phone: Urea nitrogen/Creatinine [Mass ratio] 19.1 mg/mg 10-20 [facility] Work Phone: No Panel Informationon 09-04 Estimated GFR (MDRD) Amer 66 mL/min >60 [facility] Work Phone: Comment on above: GFR Calc Estimated GFR (MDRD) Non-Af Amer 55 mL/min >60 [facility] Work Phone: Comment on above: Non- GFR Calc Serum or plasma albumin brenden urement (mass/volume)on 09-04-2021 Albumin [Mass/Vol] 3.7 g/dL 3.2-5.0 [facility] Work Phone: Serum or plasma calcium brenden urement (mass/volume)on 09-04-2021 Calcium [Mass/Vol] 9.6 mg/dL 8.8 - 10. 5 MG/DL [facility] Work Phone: Serum or plasma creatinine m easurement (mass/volume)on 09-04-2021 Creatinine [Mass/Vol] 1.36 mg/dL Abnormal 0.6 - 1.3 MG/DL [facility] Work Phone: Comment on above: The validity of the calculated GFR & GFRAA in patients over 70 years has not been determined. Clinical correlation is essential. Serum or plasma urea nitroge n measurement (mass/volume)on 09-04-2021 Urea nitrogen [Mass/Vol] 26 mg/dL 7-18 [facility] Work Phone: Urine creatinine measurement (mass/volume)on 09-04-2021 Creatinine (U) [Mass/Vol] 52.90 mg/dL NO RANGE EST. [facility] Work Phone: Urine protein measurement (m ass/volume)on 09-04-2021 Protein (U) [Mass/Vol] 13.8 mg/dL 0.0-11.8 [facility] Work Phone: Urine protein/creatinine mas s ratioon 09-04-2021 Protein/Creatinine (U) [Mass ratio] 261 mg/g CRE 0-200 [facility] Work Phone: XR Foot - left AP and Latera l and obliqueon 05-05-2020 IMPRESSION: No acute pneumatic press hand: PSCEric Transcribe Date/Time: May 05 2020 4:47P Dictated by : NIC BAHENA DO This examination was interpreted and the report reviewed and electronically signed by: NIC BAHENA DO on May 05 2020 4:48PM [facility] * * *Final Report* * * DATE OF EXAM: May 05 2020 4:41PM WOX [id number] - XR FOOT 3V AP/LAT/OBL LT / PROCEDURE REASON: Acute foot pain, left * * * * Physician Interpretation * * * * LEFT foot EXAM DATE/TIME: 05/05/2020 4:41 PM HISTORY: 70 years old Clinical information: Acute foot pain, left pt states walks an hour everyday and came home yesterday and all distal MT's bruised. Does not have much pain at all and did not injure the foot. TECHNIQUE: Images: XR FOOT 3V AP/LAT/OBL LT Comparison: None. RESULT: Findings: Bilateral findings: Moderate hallux valgus deformity bilaterally. Right :No fractures or dislocations are seen. Left :No fractures or dislocations are seen. DIVISION OF RADIOLOGY Provider, [facility] [place] - 05/05/2020 * * *Final Report* * * DATE OF EXAM: May 05 2020 4:41PM WOX [id number] - XR FOOT 3V AP/LAT/OBL LT / PROCEDURE REASON: Acute foot pain, left * * * * Physician Interpretation * * * * LEFT foot EXAM DATE/TIME: 05/05/2020 4:41 PM HISTORY: 70 years old Clinical information: Acute foot pain, left pt states walks an hour everyday and came home yesterday and all distal MT's bruised. Does not have much pain at all and did not injure the foot. TECHNIQUE: Images: XR FOOT 3V AP/LAT/OBL LT Comparison: None. RESULT: Findings: Bilateral findings: Moderate hallux valgus deformity bilaterally. Right :No fractures or dislocations are seen. Left :No fractures or dislocations are seen. IMPRESSION IMPRESSION: No acute pneumatic press hand: PSCB Transcribe Date/Time: May 05 2020 4:47P Dictated by : NIC BAHENA DO This examination was interpreted and the report reviewed and electronically signed by: NIC BAHENA DO on May 05 2020 4:48PM EST [facility] Radiology Study observation (narrative) [facility] XR Foot - left AP and Latera l and obliqueOrdered By: Ccf Provider on 05-05-2020 [facility] CHEST 2 VIEWSon 03-26-2018 Protein mass conc Performed at [facility] APPROVED BY: MANDA OWEN MD EXAMINATION: CHEST RADIOGRAPH (2 VIEW FRONTAL & LATERAL) CLINICAL HISTORY: Cough and sore throat MQ: [id number]: None RESULT: Lines, tubes, and devices: None. Lungs and pleura: No airspace consolidation, pulmonary edema, pleural effusion or pneumothorax. Minor subsegmental atelectasis/scarring in the lingula noted. Cardiomediastinal silhouette: Cardiac silhouette is not enlarged. Other: Mild degenerative changes noted at multiple levels in the thoracic spine. IMPRESSION:1. No acute radiographic abnormality. Normal [facility] Comprehensive Panelon 2018 Albumin mass conc 3.8 g/dL Normal 3.4-5.0 [facility] Comment on above: Performed By: #### L P14 ####[address] [address] ALP enzyme act/vol 43 U/L Low 46-116 [facility] Comment on above: Performed By: #### L P14 ####[address] [address] ALT-SGPT Blood 35 U/L Normal 14-63 [facility] Comment on above: Performed By: #### L P14 ####[address] [address] Anion gap 3 molar conc 15 mmol/L Normal 8-20 [facility] Comment on above: Performed By: #### L P14 ####[facility] [place] [address] AST-SGOT Blood 17 U/L Normal 15-37 [facility] Comment on above: Performed By: #### L P14 ####[place] [address] Bilirubin Ql (U) 0.7 mg/dL Normal 0.2-1.0 [facility] Comment on above: Performed By: #### L P14 ####[place] [address] Calcium mass conc 9.3 mg/dL Normal 8.5-10.1 [facility] Comment on above: Performed By: #### L P14 ####[place] [address] Chloride molar conc 98 mmol/L Normal 98-107 [facility] Comment on above: Performed By: #### L P14 ####[place] [address] CO2 molar conc 28 mmol/L Normal 21-32 [facility] Comment on above: Performed By: #### L P14 ####[place] [address] Creatinine mass conc 1.04 mg/dL Normal 0.67-1.17 [facility] Comment on above: Performed By: #### L P14 ####[place] [address] Glucose mass conc 288 mg/dL High 70-99 [facility] Comment on above: Performed By: #### L P14 ####[place] [address] Potassium molar conc 4.1 mmol/L Normal 3.5-5.1 [facility] Comment on above: Performed By: #### L P14 ####[place] [address] Protein mass conc 8.4 g/dL High 6.4-8.2 [facility] Comment on above: Performed By: #### L P14 ####[facility] [place] [address] Sodium molar conc 137 mmol/L Normal 136-145 [facility] Comment on above: Performed By: #### L P14 ####[place] [address] Urea nitrogen mass conc (Bld) 16 mg/dL Normal 7-25 [facility] Comment on above: Performed By: #### L P14 ####[place] [address] Urea nitrogen/Creatinine mass ratio 15 mg/mg Normal 10-20 [facility] Comment on above: Performed By: #### L P14 ####[place] [address] Hemogram/Manual Diffon 03-26 Abs. Baso 0.00 thou/cmm Normal 0.00-0.08 [facility] Comment on above: Performed By: #### L MCBD ####[place] [address] Abs. Eosin 0.27 thou/cmm Normal 0.00-0.41 [facility] Comment on above: Performed By: #### L MCBD ####[place] [address] Abs. Lymph 1.20 thou/cmm Low 1.50-3.65 [facility] Comment on above: Performed By: #### L MCBD ####[place] [address] Abs. Page 2.00 thou/cmm High 0.20-1.00 [facility] Comment on above: Performed By: #### L MCBD ####[place] [address] Abs. Neut (ANC) 9.83 thou/cmm High 3.00-5.67 [facility] Comment on above: Performed By: #### L MCBD ####[place] [id number] Basophil 0.0 % Normal [facility] Comment on above: Performed By: #### L MCBD ####[facility] [place], [place] [address] Eosinophil 2.0 % Normal [facility] Comment on above: Performed By: #### L MCBD ####[facility] [place], [place] [address] Lymphocyte 9.0 % Normal [facility] Comment on above: Performed By: #### L MCBD ####[address] [address] Monocyte 15.0 % Normal [facility] Comment on above: Performed By: #### L MCBD ####[address] [address] Platelet Estimate Normal Normal [facility] Comment on above: Performed By: #### L MCBD ####[place] [address] RBC Morphology Normal Normal [facility] Comment on above: Performed By: #### L MCBD ####[address] [address] Seg Neutrophil 74.0 % Normal [facility] Comment on above: Performed By: #### L MCBD ####[address] [address] Diff Type Manual Diff Normal [facility] Comment on above: Performed By: #### L MCBD ####[place] [address] Erythrocyte distribution width Auto Ratio (RBC) 12.8 % Normal 11.5-15.9 [facility] Comment on above: Performed By: #### L MCBD ####[place] [address] Hct 44.7 % Normal 42.0-52.0 [facility] Comment on above: Performed By: #### L MCBD ####[place] [address] Hgb 14.9 g/dL Normal 14.0-18.0 [facility] Comment on above: Performed By: #### L MCBD ####[facility] [place] [address] MCH 29.7 pg Normal 27.0-31.0 [facility] Comment on above: Performed By: #### L MCBD ####[facility] [place] [address] MCHC 33.3 % Normal 32.0-36.0 [facility] Comment on above: Performed By: #### L MCBD ####[facility] [place] [address] MCV 89.0 fl Normal 80.0-94.0 [facility] Comment on above: Performed By: #### L MCBD ####[place] [address] MPV 10.7 fl High 7.1-10.5 [facility] Comment on above: Performed By: #### L MCBD ####[place] [address] Platelet 240 thou/cmm Normal 150-[address] [facility] Comment on above: Performed By: #### L MCBD ####[place] [address] RBC Test strip #/vol (U) 5.02 mil/cmm Normal 4.60-6.20 [facility] Comment on above: Performed By: #### L MCBD ####[place] [address] WBC 13.3 thou/cmm High 4.8-10.8 [facility] Comment on above: Performed By: #### L MCBD ####[place] [address] MDRD eGFRon 03-26-2018 GFR/1.73 sq M predicted among non-blacks MDRD vol rate/area (S/P/Bld) mL/min/{1.73_m2} Normal >60mL/min/1.7 3m2 [facility] Comment on above: Result Comment: If t he patient is , multiply the result by 1.210. Performed By: #### L GFR ####[facility] [place], [place] [address] Magnesium Bloodon 03-26-2018 Magnesium mass conc 1.7 mg/dL Low 1.8-2.4 [facility] Comment on above: Performed By: #### L MAG ####[address] [address] N-terminal Pro-BNPon 019 Natriuretic peptide B mass conc (Bld) 210.0 pg/mL Normal [facility] Comment on above: Result Comment: Acut e CHF Rule-in <50 yrs old >= 450 pg/ml >50 yrs old >= 900 pg/ml Abnormal Pro-BNP All patients >=300 pg/ml Performed By: #### L PBNP ####[address] [address] Troponin Ion 03-26-2018 Troponin I.cardiac mass conc ng/mL Normal <=0.07 [facility] Comment on above: Performed By: #### L TRP ####[address] [address] Vital Signs Date Time Vital Sign Value Performing Clinician Faci sarah 06-20-2022 09:18-0400 Diastolic blood pressure 77 mm[Hg] Farnko Mcdaniel MD Work Phone: [facility] 06-20-2022 09:18-0400 Heart rate 80 /min Franko Mcdaniel MD Work Phone: [facility] 06-20-2022 09:18-0400 Systolic blood pressure 135 mm[Hg] Franko Mcdaniel MD Work Phone: [facility] 06-20-2022 09:09-0400 Body weight 90.72 kg Franko Mcdaniel MD Work Phone: [facility] 06-20-2022 09:09-0400 Respiratory rate 18 /min Franko Mcdaniel MD Work Phone: [facility] 03-21-2022 08:32-0500 Diastolic blood pressure 84 mm[Hg] Franko Mcdaniel MD Work Phone: [facility] 03-21-2022 08:32-0500 Heart rate 81 /min Franko Mcdaniel MD Work Phone: [facility] 03-21-2022 08:32-0500 Systolic blood pressure 158 mm[Hg] Franko Mcdaniel MD Work Phone: [facility] 03-21-2022 08:23-0500 Body temperature 98.01 [degF] Franko Mcdaniel MD Work Phone: [facility] 03-21-2022 08:23-0500 Body weight 92.08 kg Franko Mcdaniel MD Work Phone: [facility] 03-21-2022 08:23-0500 Respiratory rate 16 /min Franko Mcdaniel MD Work Phone: [facility] 12-19-2021 09:33-0400 Body weight 91.17 kg Briana Older AUTO CARE CENTER MANAGER.DISTRIBUTION FIELD TECHNICIAN Work Phone: [facility] 12-19-2021 09:33-0400 Diastolic blood pressure 86 mm[Hg] Briana Older AUTO CARE CENTER MANAGER.DISTRIBUTION FIELD TECHNICIAN Work Phone: [facility] 12-19-2021 09:33-0400 Heart rate 75 /min Briana Older AUTO CARE CENTER MANAGER.DISTRIBUTION FIELD TECHNICIAN Work Phone: [facility] 12-19-2021 09:33-0400 SaO2% (BldA) [Mass fraction] 97 % Briana Older AUTO CARE CENTER MANAGER.DISTRIBUTION FIELD TECHNICIAN Work Phone: [facility] 12-19-2021 09:33-0400 Systolic blood pressure 134 mm[Hg] Briana Older AUTO CARE CENTER MANAGER.DISTRIBUTION FIELD TECHNICIAN Work Phone: [facility] 09-18-2021 09:46-0400 Diastolic blood pressure 72 mm[Hg] Briana Older AUTO CARE CENTER MANAGER.DISTRIBUTION FIELD TECHNICIAN Work Phone: [facility] 09-18-2021 09:46-0400 Systolic blood pressure 116 mm[Hg] Briana Older AUTO CARE CENTER MANAGER.DISTRIBUTION FIELD TECHNICIAN Work Phone: [facility] 09-18-2021 09:13-0400 Body weight 87.09 kg Briana Older AUTO CARE CENTER MANAGER.DISTRIBUTION FIELD TECHNICIAN Work Phone: [facility] 09-18-2021 09:13-0400 Heart rate 78 /min Briana Older AUTO CARE CENTER MANAGER.DISTRIBUTION FIELD TECHNICIAN Work Phone: [facility] 09-18-2021 09:13-0400 Respiratory rate 16 /min Briana Older AUTO CARE CENTER MANAGER.DISTRIBUTION FIELD TECHNICIAN Work Phone: [facility] 06-15-2021 09:31-0400 Diastolic blood pressure 80 mm[Hg] Franko Mcdaniel MD Work Phone: [facility] 06-15-2021 09:31-0400 Heart rate 79 /min Franko Mcdaniel MD Work Phone: [facility] 06-15-2021 09:31-0400 Systolic blood pressure 153 mm[Hg] Franko Mcdaniel MD Work Phone: [facility] 06-15-2021 09:16-0400 Body temperature 97.3 [degF] Franko Mcdaniel MD Work Phone: [facility] 06-15-2021 09:16-0400 Body weight 90.72 kg Franko Mcdaniel MD Work Phone: [facility] 06-15-2021 09:16-0400 Respiratory rate 18 /min Franko Mcdaniel MD Work Phone: [facility] Encounters Encounter Date Encounter Type Care Provider Facility Start: 09-26-2024 ambulatory Martinez Puga Facilit y:[facility] Start: 07-07-2024 End: 07-07-[address] Martinez Puga MD Work Phone: [facility] Work Phone: Start: 07-07-2024 End: 07-07-[address] Martinez Puga MD -Ultrasound, [facility] Work Phone: Start: 07-07-2024 End: 07-07-2024 ambulatory Martinez Puga Facility:[facility] Start: 07-02-2024 End: 07-02-[address] Martinez Puga MD Work Phone: [facility] Work Phone: Start: 07-02-2024 End: 07-02-[address] Martinez Puga MD -[facility] Start: 07-02-2024 End: 07-02-2024 ambulatory Martinez Puga Facility:[facility] Start: 06-25-2024 ambulatory Martinez Puga Facilit y:[facility] Start: 05-07-2024 End: 05-07-2024 ambulatory Abi Jackson MA [facility] [place] [facility] Start: 05-07-2024 End: 05-07-2024 Patient encounter procedure Abi Jackson MA [facility] [place] Comment on above: Population Health Na vigation Outreach ([employer] High Risk - Attempt 1) Start: 11-13-2023 End: 11-13-2023 ambulatory Martinez Puga Facility:[facility] Start: 07-18-2023 End: 07-18-2023 ambulatory [facility] Work Phone: Start: 07-18-2023 End: 07-18-2023 Patient encounter procedure [facility] Work Phone: Start: 04-30-2023 ambulatory Missy Siddiqui (Pas) [facility] [place] Comment on above: Population Health Na vigation Outreach ([employer] care gaps) Start: 04-17-2023 End: 04-17-2023 Patient encounter procedure [facility] Start: 12-18-2022 Non-patient / Non-visit Dr. Cassy Puga Work Phone: [facility] Start: 12-18-[address] Martinez Puga Work Phone: [facility] Work Phone: Start: 12-12-2022 End: 12-12-[address] Martinez Puga Work Phone: [facility] Work Phone: Start: 12-12-2022 End: 12-12-[address] Martinez Puga Work Phone: [facility] Start: 12-03-2022 Emergency department patient visit FRANKO MCDANIEL Facility:[facility] Start: 10-17-2022 ambulatory Abi (Pss) Dopart [facility] [place] Comment on above: Population Health Na vigation Outreach ([employer] care gaps) Start: 09-26-2022 ambulatory Franko schmidt MD Work Phone: [facility] [place] Start: 07-26-2022 Telephone encounter Arvind stewart MD Work Phone: General Surgery Comment on above: Results (Colonoscopy results) Start: 07-09-2022 Telephone encounter Franko navarro MD Work Phone: [facility] [place] Comment on above: Results Start: 06-28-2022 Telephone encounter Cristy darby [facility] Work Phone: [facility] Comment on above: Appointment Start: 06-20-2022 End: 06-20-2022 Patient encounter procedure Franko Mcdaniel MD Work Phone: [facility] [place] Comment on above: Type 2 diabetes nikhil itus with stage 3a chronic kidney disease, without long-term current use of insulin (HCC) (Primary Dx); Essential hypertension; Special screening for malignant neoplasms, colon; Heart murmur Start: 04-26-2022 Telephone encounter Cristy darby [facility] Work Phone: [facility] Comment on above: Missed Appointment ( Pharmacy visit reschedule/) Start: 04-04-2022 End: 04-04-2022 Nursing evaluation of patient and report Dino Ralph RN Work Phone: Endocrinology Comment on above: Type 2 diabetes nikhil itus with stage 3a chronic kidney disease, without long-term current use of insulin (HCC) (Primary Dx) Start: 04-03-2022 Telephone encounter Franko navarro MD Work Phone: [facility] [place] Comment on above: Insurance Authorizat ion (dulaglutide (TRULICITY) 1.5 mg/0.5 mL pen injector) Start: 04-02-2022 Refill Franko schmidt MD Work Phone: [facility] [place] Comment on above: Refill Request Start: 03-29-2022 Refill Franko schmidt MD Work Phone: [address] [place] [address] Comment on above: Refill Request Start: 03-21-2022 End: 03-21-2022 Patient encounter procedure Franko Mcdaniel MD Work Phone: [facility] [place] Comment on above: Essential hypertensi on (Primary Dx); Type 2 diabetes mellitus with stage 3a chronic kidney disease, without long-term current use of insulin (HCC); Hyperlipidemia, unspecified hyperlipidemia type; Heart murmur Start: 01-05-2022 Refill Franko schmidt MD Work Phone: [facility] [place] Comment on above: Refill Request Start: 12-25-2021 Telephone encounter Briana Mcginnis APRN.DISTRIBUTION FIELD TECHNICIAN Work Phone: [facility] [place] Comment on above: Results Start: 12-19-2021 End: 12-19-2021 Patient encounter procedure Briana Mcginnis APRN.DISTRIBUTION FIELD TECHNICIAN Work Phone: [facility] [place] Comment on above: Hyperlipidemia, unsp ecified hyperlipidemia type (Primary Dx); Type 2 diabetes mellitus with stage 3a chronic kidney disease, without long-term current use of insulin (HCC); Essential hypertension; Obesity, Class I, BMI 30-34.9 Start: 12-13-2021 ambulatory Abi (Pss) Dopart [facility] [place] Comment on above: Population Health Na vigation Outreach ([employer] Care Gaps) Start: 12-08-2021 Refill Franko schmidt MD Work Phone: [facility] [place] Comment on above: Refill Request Start: 11-09-2021 Refill Franko schmidt MD Work Phone: [facility] [place] Comment on above: Refill Request (SEE RX NOTES) Start: 09-28-2021 Refill Franko schmidt MD Work Phone: [facility] [place] Comment on above: Refill Request Start: 09-18-2021 End: 09-18-2021 Patient encounter procedure Briana Older AUTO CARE CENTER MANAGER.DISTRIBUTION FIELD TECHNICIAN Work Phone: [facility] [place] Comment on above: Type 2 diabetes nikhil itus with stage 3a chronic kidney disease, without long-term current use of insulin (HCC) (Primary Dx); Essential hypertension; Stage 3 chronic kidney disease, unspecified whether stage 3a or 3b CKD (HCC); Need for COVID-19 vaccine Start: 09-04-2021 End: 09-04-2021 Patient encounter procedure [facility] Start: 06-30-2021 Telephone encounter Briana Older AUTO CARE CENTER MANAGER.DISTRIBUTION FIELD TECHNICIAN Work Phone: [facility] [place] Comment on above: Results Start: 06-28-2021 Telephone encounter Franko navarro MD Work Phone: [facility] [place] Comment on above: Medication Update Start: 06-23-2021 Telephone encounter Briana Mcginnis APRN.DISTRIBUTION FIELD TECHNICIAN Work Phone: [facility] [place] Comment on above: Patient Update; Resu lts Start: 06-16-2021 Telephone encounter Briana Older AUTO CARE CENTER MANAGER.DISTRIBUTION FIELD TECHNICIAN Work Phone: [facility] [place] Comment on above: Results, Lab Start: 06-15-2021 End: 06-15-2021 Patient encounter procedure Franko Mcdaniel MD Work Phone: [facility] [place] Comment on above: Essential hypertensi on (Primary Dx); Type 2 diabetes mellitus with stage 3a chronic kidney disease, without long-term current use of insulin (HCC); Hypertensive kidney disease with stage 3a chronic kidney disease (HCC); Hyperlipidemia, unspecified hyperlipidemia type Start: 05-05-2020 End: 05-05-2020 Subsequent hospital visit by physician Thomas [facility] [place] Work Phone: Radiology Comment on above: Acute foot pain, lef t [M79.672] Procedures Date Procedure Procedure Detail Performing Clinician Start: 07-07-2024 US scan of thyroid Dr. Martinez Puga MD Work Phone: Start: 12-18-2022 US scan of thyroid Dr. Martinez Puga Work Phone: Start: 07-05-2022 Colonoscopy Franko Troy MD Work Phone: Start: 09-18-2021 e-Tag-EvochaNTZulahoo COVI D-19 VACCINE, AGE 12+ YR (SANTOS TOP) Briana Older AUTO CARE CENTER MANAGER.DISTRIBUTION FIELD TECHNICIAN Work Phone: Start: 09-18-2021 Adult depression scr eening assessment Briana Older AUTO CARE CENTER MANAGER.DISTRIBUTION FIELD TECHNICIAN Work Phone: Start: 09-04-2021 BMP - EXTERNAL [facility] Prov ider Start: 09-04-2021 EX ALB/CREAT RND UR [facility] Provider Start: 09-14-2020 Adult depression scr eening assessment Franko Mcdaniel MD Work Phone: Start: 05-05-2020 Radex foot complete minimum 3 views Franko Mcdaniel MD Work Phone: Start: 08-24-2015 Colonoscopy Franko Troy MD Work Phone: Plan of Treatment Date Care Activity Detail Author Start: 07-05-2029 Colonoscopy COLONOSCOPY [facility] Start: 07-05-2029 COLORECTAL CANCER SCREENING COLORECTAL CANCER SCREENING [facility] Start: 12-11-2023 Glaucoma screening Dilated Retinal E xam [facility] Start: 11-24-2023 Covid-19 Vaccine ( season) Covid-19 Vaccine () [facility] Start: 11-24-2023 Influenza vaccination Influenza Vacc ine (#1) [facility] Start: 07-06-2023 Colonoscopy COLONOSCOPY [facility] Start: 07-06-2023 COLORECTAL CANCER SCREENING COLORECTAL CANCER SCREENING [facility] Start: 07-06-2023 Screening for malign ant neoplasm of colon [facility] Start: 06-21-2023 ANNUAL PCP TEAM SIX PACK LOADER OPERATOR RADHA DISEASE VISIT ANNUAL PCP TEAM CHRONIC DISEASE VISIT [facility] Start: 06-21-2023 Complete blood count Hemoglobin/Patrick tocrit [facility] Start: 06-21-2023 Creatinine measurement Serum Creatin ine [facility] Start: 06-21-2023 HEMOGLOBIN/HEMATOCRIT HEMOGLOBIN/HEM ATOCRIT [facility] Start: 06-21-2023 SERUM CREATININE SERUM CREATININE [facility] Start: 03-25-2023 Depression Assessment Depression Ass essment [facility] Start: 03-21-2023 ANNUAL PCP TEAM SIX PACK LOADER OPERATOR RADHA DISEASE VISIT ANNUAL PCP TEAM CHRONIC DISEASE VISIT [facility] Start: 03-21-2023 Hepatitis B surface antibody level LDL CHOLESTEROL [facility] Start: 03-21-2023 SERUM CREATININE SERUM CREATININE [facility] Start: 01-28-2023 RSV Vaccine (1 - 1-d ose 75+ series) RSV Vaccine (1 - 1-dose 75+ series) [facility] Start: 12-19-2022 ANNUAL PCP TEAM SIX PACK LOADER OPERATOR RADHA DISEASE VISIT ANNUAL PCP TEAM CHRONIC DISEASE VISIT [facility] Start: 12-19-2022 COVID-19 VACCINE (4 - Booster for Moderna series) COVID-19 VACCINE (4 - Booster for Moderna series) [facility] Comment on above: Postponed from 11/13 (Declined at this time) Start: 12-19-2022 COVID-19 VACCINE (4 - Moderna series) COVID-19 VACCINE (4 - Moderna series) [facility] Comment on above: Postponed from 11/13 (Declined at this time) Start: 12-19-2022 SERUM CREATININE SERUM CREATININE [facility] Start: 12-08-2022 Hepatitis C antibody , confirmatory test DILATED RETINAL EXAM [facility] Start: 11-23-2022 Covid-19 Vaccine (2022- season) Covid-19 Vaccine ( season) [facility] Start: 11-23-2022 Influenza vaccination [facility] Start: 09-26-2022 End: 11-26-2022 ALBUMIN/CREAT RATIO RND UR ALBUMIN/CREAT RATIO RND UR Lab Routine Type 2 diabetes mellitus with stage 3a chronic kidney disease, without long-term current use of insulin (HCC) Expected: 09/26/2022, Expires: 11/26/2022 [facility] Work Phone: Comment on above: Expected: 09/26/2022 , Expires: 11/26/2022 Start: 09-26-2022 End: 11-26-2022 Hemoglobin A1c in Blood HGB A1C Lab Routine Type 2 diabetes mellitus with stage 3a chronic kidney disease, without long-term current use of insulin (HCC) Expected: 09/26/2022, Expires: 11/26/2022 [facility] Work Phone: Comment on above: Expected: 09/26/2022 , Expires: 11/26/2022 Start: 09-21-2022 Influenza vaccination INFLUENZA (#1) [facility] Comment on above: Postponed from 11/23 (Declined at this time) Start: 09-20-2022 Hemoglobin A1c measurement HbA1C [facility] Start: 09-20-2022 Hemoglobin A1c/Hemoglobin.total in Blood HBA1C [facility] Start: 09-18-2022 3 comp foot exam completed DIABETIC FOOT EXAM [facility] Start: 09-18-2022 Adult depression scr eening assessment DEPRESSION SCREENING [facility] Start: 09-18-2022 ANNUAL PCP TEAM SIX PACK LOADER OPERATOR RADHA DISEASE VISIT ANNUAL PCP TEAM CHRONIC DISEASE VISIT [facility] Start: 09-18-2022 BP CONTROLLED (<130/80) BP CONTROLLE D (<130/80) [facility] Start: 09-18-2022 Diabetic foot examination Diabetic F oot Exam [facility] Start: 09-18-2022 SHINGRIX VACCINE (1 of 2) FLORES GRIX VACCINE (1 of 2) [facility] Comment on above: Postponed from 01/28 (Declined at this time) Start: 09-18-2022 Urine microalbumin profile DTAP,TDAP ,TD (1 - Tdap) [facility] Comment on above: Postponed from 01/28 (Declined at this time) Start: 09-04-2022 Hepatitis B screening URINE ALBUMIN:CREATININE RATIO [facility] Start: 08-23-2022 Colonoscopy COLONOSCOPY [facility] Start: 08-23-2022 COLORECTAL CANCER SCREENING COLORECTAL CANCER SCREENING [facility] Start: 06-27-2022 SERUM CREATININE SERUM CREATININE [facility] Start: 06-20-2022 End: 08-20-2022 Basic metabolic 2000 panel - Serum or Plasma [facility] Work Phone: Comment on above: Expected: 06/20/2022 , Expires: 08/20/2022 Start: 06-20-2022 End: 08-20-2022 Hemoglobin A1c in Blood [facility] Work Phone: Comment on above: Expected: 06/20/2022 , Expires: 08/20/2022 Start: 06-19-2022 Hemoglobin A1c/Hemoglobin.total in Blood HBA1C [facility] Start: 06-15-2022 ANNUAL PCP TEAM SIX PACK LOADER OPERATOR ARDHA DISEASE VISIT ANNUAL PCP TEAM CHRONIC DISEASE VISIT [facility] Start: 06-15-2022 HEMOGLOBIN/HEMATOCRIT HEMOGLOBIN/HEM ATOCRIT [facility] Start: 06-15-2022 Hepatitis B surface antibody level LDL CHOLESTEROL [facility] Start: 06-15-2022 SERUM CREATININE SERUM CREATININE [facility] Start: 04-19-2022 Hepatitis C antibody , confirmatory test DILATED RETINAL EXAM [facility] Start: 03-25-2022 DEPRESSION ASSESSMENT DEPRESSION ASS ESSMENT [facility] Start: 03-20-2022 Hemoglobin A1c/Hemoglobin.total in Blood HBA1C [facility] Start: 03-20-2022 End: 05-20-2022 Lipid 1996 panel - Serum or Plasma LIPID PANEL BASIC Lab Routine Hyperlipidemia, unspecified hyperlipidemia type Expected: 03/20/2022 (Approximate), Expires: 05/20/2022 [facility] Work Phone: Comment on above: Expected: 03/20/2022 (Approximate), Expires: 05/20/2022 Start: 01-18-2022 COVID-19 VACCINE (4 - Booster for Moderna series) COVID-19 VACCINE (4 - Booster for Moderna series) [facility] Start: 12-25-2021 End: 02-24-2022 Basic metabolic 2000 panel - Serum or Plasma BASIC METABOLIC PNL Lab Routine Hyperkalemia Expected: 12/25/2021, Expires: 02/24/2022 [facility] Work Phone: Comment on above: Expected: 12/25/2021 , Expires: 02/24/2022 Start: 12-19-2021 End: 02-18-2022 Comprehensive metabolic 2000 panel - Serum or Plasma [facility] Work Phone: Comment on above: Expected: 12/19/2021 , Expires: 02/18/2022 Start: 12-19-2021 End: 02-18-2022 Hemoglobin A1c in Blood [facility] Work Phone: Comment on above: Expected: 12/19/2021 , Expires: 02/18/2022 Start: 12-19-2021 Hemoglobin A1c/Hemoglobin.total in Blood HBA1C [facility] Start: 12-16-2021 Hepatitis B surface antibody level LDL CHOLESTEROL [facility] Start: 12-16-2021 SERUM CREATININE SERUM CREATININE [facility] Start: 11-23-2021 Influenza vaccination INFLUENZA (#1) [facility] Start: 09-29-2021 End: 11-29-2021 Basic metabolic 2000 panel - Serum or Plasma BASIC METABOLIC PNL Lab Routine Hypertensive kidney disease with stage 3a chronic kidney disease (HCC) Expected: 09/29/2021 (Approximate), Expires: 11/29/2021 [facility] Work Phone: Comment on above: Expected: 09/29/2021 (Approximate), Expires: 11/29/2021 Start: 09-15-2021 Hemoglobin A1c/Hemoglobin.total in Blood HBA1C [facility] Start: 09-14-2021 3 comp foot exam completed DIABETIC FOOT EXAM [facility] Start: 09-14-2021 Adult depression scr eening assessment DEPRESSION SCREENING [facility] Start: 09-14-2021 HEMOGLOBIN/HEMATOCRIT HEMOGLOBIN/HEM ATOCRIT [facility] Start: 09-14-2021 Hepatitis B screening URINE ALBUMIN:CREATININE RATIO [facility] Start: 06-30-2021 End: 08-30-2021 Basic metabolic 2000 panel - Serum or Plasma BASIC METABOLIC PNL Lab Routine Hyperkalemia Expected: 06/30/2021 (Approximate), Expires: 08/30/2021 [facility] Work Phone: Comment on above: Expected: 06/30/2021 (Approximate), Expires: 08/30/2021 Start: 06-15-2021 Hemoglobin A1c/Hemoglobin.total in Blood HBA1C [facility] Start: 03-25-2021 ADVANCE DIRECTIVE DISCUSSION ADVANCE DIRECTIVE DISCUSSION [facility] Start: 01-04-2021 COVID-19 VACCINE (3 - Booster for Moderna series) COVID-19 VACCINE (3 - Booster for Moderna series) [facility] Start: 11-08-2019 Hepatitis C antibody , confirmatory test DILATED RETINAL EXAM [facility] Start: 2008 RSV Vaccine (1 - 1-d ose 60+ series) RSV Vaccine (1 - 1-dose 60+ series) [facility] Start: 01-28-1998 SHINGRIX VACCINE (1 of 2) FLORES GRIX VACCINE (1 of 2) [facility] Start: 01-28-1993 COLOGUARD (FIT-DNA) COLOGUARD (FIT-D NA) [facility] Start: 01-28-[address] COLONOGRAPHY [facility] Start: 01-28-1993 FECAL OCCULT BLOOD FECAL OCCULT BLOO D [facility] Start: 01-28-1993 Screening for malign ant neoplasm of colon [facility] Start: 01-28-1993 SIGMOIDOSCOPY SIGMOIDOSCOPY [facility] Start: 01-28-1967 Urine microalbumin profile [facility] Start: 01-28-1966 Anxiety Screening Anxiety Screening [facility] Start: 01-28-1966 BP CONTROLLED (<130/80) BP CONTROLLE D (<130/80) [facility] Start: 01-28-1966 Depression Screening Depression Scre ening [facility] End: 06-21-2023 Echocardiography ECHO Cardiology Routine Heart murmur 1 Occurrences starting 06/20/2022 until 06/21/2023 [facility] Work Phone: Comment on above: 1 Occurrences starti ng 06/20/2022 until 06/21/2023 End: 06-21-2023 Screening colonoscopy COLONOSCOPY SCREENING Endoscopy Routine Special screening for malignant neoplasms, colon 1 Occurrences starting 06/20/2022 until 06/21/2023 [facility] Work Phone: Comment on above: 1 Occurrences starti ng 06/20/2022 until 06/21/2023 [facility] Immunizations Immunization Date Immunization Notes Care Provider Felipe kendall 12-30-2022 influenza virus vacc ine, unspecified formulation Abi Jackson MA [facility] 09-18-2021 COVID-19 vaccine, ag e 12+ yr (e-Tag-BIONTZulahoo - [place] [employer]) Briana Older AUTO CARE CENTER MANAGER.DISTRIBUTION FIELD TECHNICIAN Work Phone: [facility] 12-16-2020 influenza, high-dose , quadrivalent vaccine (FLUZONE HIGH DOSE QUADRIVALENT) Franko Mcdaniel MD Work Phone: [facility] 12-16-2020 influenza virus vacc ine, unspecified formulation Missy Coreas [facility] 08-04-2020 COVID-19 vaccine, fu ll dose (MODERNA) Franko Mcdaniel MD Work Phone: [facility] Work Phone: 07-07-2020 COVID-19 vaccine, fu ll dose (MODERNA) Franko Mcdaniel MD Work Phone: [facility] Work Phone: 01-17-2019 influenza, high dose seasonal, preservative-free Franko Mcdaniel MD Work Phone: [facility] Work Phone: 10-08-2017 pneumococcal polysaccharide vaccine, 23 valent Franko Mcdaniel MD Work Phone: [facility] Work Phone: 01-25-2017 influenza, high dose seasonal, preservative-free Franko Mcdaniel MD Work Phone: [facility] 02-06-2016 pneumococcal conjuga te vaccine, 13 valent Franko Mcdaniel MD Work Phone: [facility] 01-03-2016 influenza, high dose seasonal, preservative-free Franko Mcdaniel MD Work Phone: [facility] 01-05-2015 influenza, high dose seasonal, preservative-free Franko Mcdaniel MD Work Phone: [facility] 05-29-2012 pneumococcal polysaccharide vaccine, 23 valent Franko Mcdaniel MD Work Phone: [facility] Work Phone: Payers Date Payer Category Payer Medicare [id number] 2023 Self-pay [id number] 2021 Medicare AETNA MEDICARE A ETNA MEDICARE PPO [id number] 2021-Present [phone] [address] [place] [address] PPO [id number] 2021 Medicare (Managed Care) AETNA [place] D[place]ARE [id number] 2021 Private Health Insurance [facility] [place] [id number] 2015 Medicare [id number] Unknown [id number] Unknown [id number] Unknown [id number] Unknown [id number] Unknown [id number] Unknown [id number] Social History Date Type Detail Facility Start: 11-04-2015 End: 12-09-2015 Tobacco smoking status NHIS Never smoked tobacco [facility] Start: 11-04-2015 End: 12-09-2015 Tobacco use and exposure Smokeless tobacco non-user [facility] Start: 06-15-2021 End: 12-03-2022 Alcohol intake Current non-drinker of alcohol (finding) [facility] Start: 1950 Sex Assigned At Not on file [facility] Start: 04-05-2020 End: 12-19-2021 Exposure to SARS-CoV-2 (event) Not sure [facility] Work Phone: Start: 1950 Sex Assigned At Male [facility] Start: 07-26-2022 End: 08-16-2022 History of Social function [facility] Work Phone: Start: 07-26-2022 End: 08-16-2022 Tobacco use panel [facility] Work Phone: Adult Depression Screening Assessment 0 [facility] Work Phone: Tobacco smoking stat us NHIS Unknown if ever smoked [facility] Work Phone: Start: 07-07-2024 End: 07-13-2024 Sex Male (finding) [facility] Medical Equipment Procedure Code Equipment Code Equipment Original Text Equipment Identifier Dates [id number], [id number], [id number] Start: 05-05-2020 End: 09-18-2021 Comment on above: Test blood sugar(s) 2 times daily. Dx: Type 2 DM - Uncontrolled E11.65 Insulin: No Test blood sugar(s) 1 times daily. Dx: Type 2 DM - Uncontrolled E11.65 Insulin: No Functional Status Date Assessment Result Facility 12-27-2016 Are you deaf, or do you have serious difficulty hearing No 12/27/2016 4:00 PM Franko Gaffney MD No [facility] 12-27-2016 Are you blind, or do you have serious difficulty seeing, even when wearing glasses No 12/27/2016 4:00 PM Franko Gaffney MD No [facility] 12-27-2016 Do you have serious difficulty walking or climbing stairs No 12/27/2016 4:00 PM EDT Franko Mcdaniel MD No [facility] 12-27-2016 Do you have difficul ty dressing or bathing No 12/27/2016 4:00 PM EDT Franko Mcdaniel MD No [facility] 12-27-2016 Because of a physica l, mental, or emotional condition, do you have difficulty doing errands alone such as visiting a physician's office or shopping No 12/27/2016 4:00 PM EDT Franko Mcdaniel MD No [facility] Mental Status Date Assessment Result Facility 12-27-2016 Because of a physica l, mental, or emotional condition, do you have serious difficulty concentrating, remembering, or making decisions No 12/27/2016 4:00 PM EDT Franko Mcdaniel MD No [facility] Clinical Notes 10-10-2017 to 08-12-2024 Abi Jackson MA - 05/07/2024 11:14 AM Missy Jeffery - 04/30/2023 11:21 AM Abi Reyes - 10/17/2022 12:43 PM EDT Note Date & Type Note Facility 08-12-2024 Note HNO ID: [id number] Author: ALLISON AUGUSTIN RN Service: ? Author Type: Registered Nurse Type: Progress Notes Filed: 08/12/2024 11:03 Note Text: Value Based Care Coordination Chart Review Provider Action / FYI: Defer-OON PCP Upon review of patient chart, the patient is excluded from Chronic Disease Management Patient is not a candidate for CDM at this time and placed in the following status: Deferred Action taken: No action needed . Allison Augustin RN August 12, 2024 11:03 AM [facility] 08-12-2024 Note Patient Outreach ([facility] VINCENZO BUCIO ([id number]) 1950 M Date Time Provider Department 08/12/24 ALLISON AUGUSTIN AMBG During your visit today, we recorded the following information about you: Allison Augustin RN 08/12/2024 11:03 AM Signed Value Based Care Coordination Chart Review Provider Action / FYI: Defer-OON PCP Upon review of patient chart, the patient is excluded from Chronic Disease Management Patient is not a candidate for CDM at this time and placed in the following status: Deferred Action taken: No action needed . Allison Augustin RN August 12, 2024 11:03 AM Allergies As of Date: 08/12/2024 (No Known Allergies) Date Reviewed: 12/03/2022 Reviewed by: Jailene Shannon RN - Fully Assessed Reason for Visit: Care Coordination [3491] Prescriptions as of 08/12/2024 - lisinopril (PRINIVIL) 20 mg tablet Take [...] once daily. Problem List As Of Date 08/12/2024 Noted Resolved Anogenital warts [A63.0] 12/27/2016 Essential tremor [G25.0] Type 2 diabetes mellitus with stage 3a chronic * Obesity (BMI 30-39.9) [E66.9] 05/05/2018 Hyperlipidemia, unspecified [E78.5] 01/03/2016 Frequency of micturition [R35.0] 01/03/2016 12/27/2016 Essential hypertension [I10] 03/25/1999 Actinic keratosis of scalp [L57.0] 12/27/2016 Kidney insufficiency [N28.9] 10/10/2017 05/05/2020 Obesity, Class I, BMI 30-34.9 [E66.811] 05/05/2018 Nodule of kidney [N28.89] 05/05/2020 Hypertensive kidney disease with stage 3a chron*06/13/2021 Heart murmur [R01.1] 03/21/2022 Moderate to severe aortic stenosis [I35.0] 07/09/2022 Encounter Status:Closed by ALLISON AUGUSTIN on 08/12/24 [facility] 07-07-2024 Radiology Diagnostic study note [facility] [address] [place] [address] [id number] Thyroid MR#: [id number] Acct: [id number] Name: VINCENZO BUCIO Rep #: [id number] : [id number] M 74 From: Katia Cruz MD PCP: Dr. Martinez Puga MD Status: RE G CLI Study:Thyroid Date of Exam: 07/07/24 Exam# [id number] Ordering Dr: Martinez Puga MD PROCEDURE: THYROID (USTHY), 07/07/2024 REASON FOR EXAM: NODULE TECHNIQUE: Grayscale and color Doppler imaging of the thyroid was performed. COMPARISON: None FINDINGS: Right lobe measures 3.9 x 1.9 x 1.9cm. Essentially homogeneous background echotexture. No abnormal vascularity. No solid or mostly solid nodules are identified. Left lobe measures 3.5 x 1.7 x 1.4 cm. Essentially homogeneous background echotexture. No abnormal vascularity. Nodules as below: *Upper pole, 3 x 3 x 3 mm, mixed cystic and solid, hypoechoic solid components, TI-RADS 3. Isthmus measures 4 mm in thickness. US/Thyroid IMPRESSION: 1. Assessment is TI-RADS 3. No nodules currently meet criteria for FNA or follow-up. 2. Low normal sized gland with essentially unremarkable background echotexture. No abnormal vascularity. Management recommendations for TI-RADS 3 findings: FNA if = 2.5 cm; Follow if = 1.5 cm at 1, 3, and 5 years. Recommendations per ACR Thyroid Imaging, Reporting and Data System (TI-RADS): White Paper of the ACR TI-RADS Committee, 2017 (https://linkinghub.Toxic Attire.[employer] /retrieve/pii/[email or web address]) Reading Location: [id number] CC: Dr. Martinez Puga MD ~ Singer And Unloader: Signed [facility] 05-07-2024 Note HNO ID: [id number] Author: ABI JACKSON MA Service: ? Author Type: Clinical Education Coordinator Type: Progress Notes Filed: 05/07/2024 11:18 Note Text: POPULATION HEALTH NAVIGATION OUTREACH Action/FYI Patient is on Aetna High Risk list for below and needs appointment to address: Depression Screening Anxiety Screening BP Controlled (<130/80) DTaP,Tdap,Td Vaccine(1 - Tdap) Shingrix Vaccine(1 of 2) Urine Albumin:Creatinine Ratio Diabetic Foot Exam HbA1C RSV Vaccine(1 - 1-dose 75+ series) LDL Cholesterol Annual PCP Team Chronic Disease Visit Serum Creatinine Hemoglobin/Hematocrit Influenza Vaccine(1) Covid-19 Vaccine( season) Dilated Retinal Exam Hemoglobin A1C (%) Date Value 06/20/2022 9.1 12/16/2020 7.5 Patient due for: Medicare Annual Wellness Visit Controlling Blood Pressure Diabetic Eye Exam HBA1C KED Flu Vaccine MyChart Active: Yes Sent mychart for attribution as patient is following with outside [facility] provider per care everywhere. Questionable attribution - [facility] Dr Puga Reason for Outreach Care Gap/HCC or Scheduling Wellness Visits Care Gaps due: N/A Patient Contacted: Unable or unnecessary to reach patient: MyChart message sent Navigation Signature: Abi Jackson MA May 07, 2024 11:15 AM [facility] 05-07-2024 History of Present illness Narrative POPULATION HEALTH NAVIGATION OUTREACH Action/FYI Patient is on [employer] High Risk list for below and needs appointment to address: Depression Screening Anxiety Screening BP Controlled (<130/80) DTaP,Tdap,Td Vaccine(1 - Tdap) Shingrix Vaccine(1 of 2) Urine Albumin:Creatinine Ratio Diabetic Foot Exam HbA1C RSV Vaccine(1 - 1-dose 75+ series) LDL Cholesterol Annual PCP Team Chronic Disease Visit Serum Creatinine Hemoglobin/Hematocrit Influenza Vaccine(1) Covid-19 Vaccine( season) Dilated Retinal Exam Hemoglobin A1C (%) Date Value 06/20/2022 9.1 12/16/2020 7.5 Patient due for: Medicare Annual Wellness Visit Controlling Blood Pressure Diabetic Eye Exam HBA1C KED Flu Vaccine Upplicationhart Active: Yes Sent Life360hart for attribution as patient is following with outside [facility] provider per care everywhere. Questionable attribution - [facility] Dr Puga Reason for Outreach Care Gap/HCC or Scheduling Wellness Visits Care Gaps due: N/A Patient Contacted: Unable or unnecessary to reach patient: HoozOn message sent Navigation Signature: Abi Jackson MA May 07, 2024 11:15 AM documented in this encounter [facility] 05-07-2024 Note Patient Outreach (MANJULA TNAV) VINCENZO BUCIO ([id number]) 1950 M Date Time Provider Department 05/07/24 ABI JACKSONV During your visit today, we recorded the following information about you: Abi Jackson MA 05/07/2024 11:18 AM Signed POPULATION HEALTH NAVIGATION OUTREACH Action/ Patient is on Aetna High Risk list for below and needs appointment to address: Depression Screening Anxiety Screening BP Controlled (<130/80) DTaP,Tdap,Td Vaccine(1 - Tdap) Shingrix Vaccine(1 of 2) Urine Albumin:Creatinine Ratio Diabetic Foot Exam HbA1C RSV Vaccine(1 - 1-dose 75+ series) LDL Cholesterol Annual PCP Team Chronic Disease Visit Serum Creatinine Hemoglobin/Hematocrit Influenza Vaccine(1) Covid-19 Vaccine( season) Dilated Retinal Exam Hemoglobin A1C (%) Date Value 06/20/2022 9.1 12/16/2020 7.5 Patient due for: Medicare Annual Wellness Visit Controlling Blood Pressure Diabetic Eye Exam HBA1C KED Flu Vaccine MyChart Active: Yes Sent Life360hart for attribution as patient is following with outside [facility] provider per care everywhere. Questionable attribution - [facility] Dr Puga Reason for Outreach Care Gap/HCC or Scheduling Wellness Visits Care Gaps due: N/A Patient Contacted: Unable or unnecessary to reach patient: HoozOn message sent Navigation Signature: Abi Jackson MA May 07, 2024 11:15 AM Allergies As of Date: 05/07/2024 (No Known Allergies) Date Reviewed: 12/03/2022 Reviewed by: Jailene Shannon RN - Fully Assessed Reason for Visit: Population Health Navigation Outreach [3910] Cmt: Aetna High Risk - Attempt 1 Prescriptions as of 05/07/2024 - lisinopril (PRINIVIL) 20 mg tablet Take [...] once daily. Problem List As Of Date 05/07/2024 Noted Resolved Anogenital warts [A63.0] 12/27/2016 Essential tremor [G25.0] Type 2 diabetes mellitus with stage 3a chronic * Obesity (BMI 30-39.9) [E66.9] 05/05/2018 Hyperlipidemia, unspecified [E78.5] 01/03/2016 Frequency of micturition [R35.0] 01/03/2016 12/27/2016 Essential hypertension [I10] 03/25/1999 Actinic keratosis of scalp [L57.0] 12/27/2016 Kidney insufficiency [N28.9] 10/10/2017 05/05/2020 Obesity, Class I, BMI 30-34.9 [E66.811] 05/05/2018 Nodule of kidney [N28.89] 05/05/2020 Hypertensive kidney disease with stage 3a chron*06/13/2021 Heart murmur [R01.1] 03/21/2022 Moderate to severe aortic stenosis [I35.0] 07/09/2022 Encounter Status:Closed by ABI JACKSON on 05/07/24 [facility] 04-30-2023 History of Present illness Narrative POPULATION HEALTH NAVIGATION OUTREACH Action/FYI Updated pt PCP field Based on care everywhere Patient Identified by Name and : NO Outreach Outcome/Action PCP field updated Did you use a PCP flex slot to schedule this appointment? N/A Navigation Signature: Missy Coreas April 30, 2023 11:21 AM documented in this encounter [facility] 01-05-2023 Note HNO ID: [id number] Author: Note, Interface Service: ? Author Type: ? Type: Progress Notes Filed: 01/05/2023 5:29 AM Note Text: Epic Scheduled Downtime: 01/05/2023 1:00:00 AM to 01/05/2023 1:28:00 AM [facility] 10-17-2022 History of Present illness Narrative POPULATION [...] visits Payer: Payor: AET MEDICARE / Plan: AETNA MEDICARE PPO / [...] FOOT EXAM due on 09/18/2022 Navigation Signature: Abi Nuñez Population Health Navigator October 17, 2022 12:43 PM documented in this encounter [facility] 10-01-2022 Evaluation note Diagnosis Type 2 diabetes mellitus with stage 3a chronic kidney disease, without long-term current use of insulin (HCC) documented in this encounter [facility]04-20-2023 Miscellaneous Notes* Telephone Encounter - China Wiggins - 07/12/2022 1:17 PM EDT 2nd attempt Called PT LVM to call back and schedule consult to cardio. China PSS * Telephone Encounter - China Wiggins - 07/11/2022 8:[address] consult for cardio. Called PT LVM to call back and schedule consult to cardio. China PSS * Telephone Encounter - Cristela [...] dyspnea, syncope, palpitations, etc. [facility]23 Miscellaneous Notes* Telephone Encounter - Cristy [...] time. Seema Burleson RN documented in [facility] encounterA[facility]03-29-2023 Instructions* Patient Instructions* Franko Mcdaniel MD [...] until the day before your colonoscopy. Designated Game Technician on the Day of Your Exam A responsible family member or friend MUST come with you to your colonoscopy and REMAIN in the endoscopy area until you are discharged! You are NOT ALLOWED to drive, take a taxi or bus, or leave the Endoscopy Center ALONE. If you do not have a responsible dinkey driver (family member or friend) with you [...] preparation solution at your local pharmacy or [facility]. Three (3) Days Before Your Colonoscopy [...] carbonated beverages such as lisette diandra or lemon-tuolumne soda; Gatorade or other sports drinks (not [...] calling after 5:00 PM, please call Nurse road conductor at [phone]. [facility] [address] [place] [address] Index # 80673 Revised 04/2016 3 Colonoscopy Procedure Overview Please [...] If the nausea persists, please contact nurse quality control checker at [phone]. You may experience skin irritation around the [...] performed your exam. 6 Revised 04/2016 Copyright 5220-8355 [facility]. All rights reserved. Revised 04/2016 [facility]23 History of Present illness Narrative* Franko Mcdaniel MD - 06/20/2022 9:19 AM EDT This note was created using Songzater. Subjective Vincenzo Bucio is a 72 year [...] SYRINGE Franko Mcdaniel MD * Cristela Ridley NURSERYPERSON - 06/20/2022 9:06 AM EDT RUST OPEN ACCESS QUESTIONNAIRE 1. Are you currently [...] Please send all open access questionnaires to [facility] Pool #[id number] documented in [facility]03-[facility]23 Evaluation note* Diagnosis Type 2 diabetes mellitus with stage 3a chronic kidney disease, without long-term current use of insulin (HCC)- Primary Essential hypertension Unspecified essential hypertension Special screening for malignant neoplasms, colon Heart murmur Undiagnosed cardiac murmurs documented in this encounter [facility]02-02-2023 Miscellaneous Notes* Telephone Encounter - KELLY Domingo - 04/26/2022 10:01 AM EST Telephoned the patient regarding missed appt. Left a message. 1st attempt * Telephone Encounter - Cristy Aiken RP - 04/26/2022 9:56 AM EST Primary Care Pharmacy Rescheduling Outreach Call center, please contact patient and reschedule in person visit for Diabetes management within ~2-6 week(s). (Visit length: 60 minutes) Thank you, Cristy Aiken RP 04/26/2022 9:56 AM documented in [facility] encounterA[facility]01-11-2023 Miscellaneous Notes* Telephone Encounter - Ann [...] Pss - 04/03/2022 10:17 AM EST Vincenzo Oscar Bucio is calling Franko Mcdaniel MD today [...] authorization today and so that he can pickling solution maker his medication. They are sending authorization paperwork to the fax machine. Patient has been identified by name and birthdate. Duration of symptoms: N/A Person calling: self Call patient at: at home [phone] (home) [phone] (cell) Was an appointment scheduled: No Closing statement: Prior Authorization Calls: Thank you for calling [facility], your call will be returned within the next 24 hours or next business day. Naty Celis Pss documented in this encounterA[facility] Hospital01-11-2023 History of Present illness Narrative* Dino Ralph RN - 04/04/2022 8:30 AM EST DIABETES CARE AND EDUCATION VISIT Location: [place] Type of visit: In person individual PATIENT'S [...] TIME: 8:30 AM PAGER: documented in this encounterAult[facility] Hospital01-11-2023 Evaluation note* Diagnosis Type 2 diabetes mellitus with stage 3a chronic kidney disease, without long-term current use of insulin (HCC)- Primary documented in this encounter [facility]01-09-2023 Miscellaneous Notes* Telephone Encounter - Tamie [...] in this encounter Please review and advise. Ayan Martinez documented in this encounterA[facility] Hospital01-05-2023 Miscellaneous Notes* Telephone Encounter - Jigna [...] Pen After Please review and advise. Suzanna Valdes Pss documented in this encounterA[facility]man Hospital01-03-2023 Evaluation note* Diagnosis Essential hypertension- Primary Unspecified essential hypertension Type 2 diabetes mellitus with stage 3a chronic kidney disease, without long-term current use of insulin (HCC) Hyperlipidemia, unspecified hyperlipidemia type Heart murmur Undiagnosed cardiac murmurs documented in this encounter [facility]12-28-2022 Instructions* Patient Instructions* Franko Mcdaniel MD - 03/21/2022 8:48 AM EST TELL LAB TO RUN ALL FASTING LAB ORDERS. documented in this encounterAultman Hospital12-28-2022 History of Present illness Narrative* Franko Mcdaniel MD - 03/21/2022 8:29 AM EST This note was created using Assistance.net Incriter. Subjective Vincenzo Bucio is a 72 year [...] up. Franko Mcdaniel MD documented in this encounterAultman Hospital10-14-2022 Miscellaneous Notes* Telephone Encounter - Minerva [...] you. Minerva Curran LPN documented in this encounterAultman Hospital10-06-2022 Evaluation note* Diagnosis Type 2 diabetes mellitus with stage 3a chronic kidney disease, without long-term current use of insulin (HCC)- Primary documented in this encounter [facility]10-03-2022 Miscellaneous Notes* Telephone Encounter - Stoney [...] next Briana Mcginnis APRN.CNP documented in this encounterAultman Hospital09-27-2022 Instructions* Patient Instructions* Briana Mcginnis APRN.CNP - 12/19/2021 9:57 AM EDT Start taking cholesterol medication rosuvastatin (Crestor), take 10 mg at bedtime. We will need to recheck your cholesterol in 3 months. Start taking amlodipine 2.5 mg daily in addition to Lisinopril and Bisoprolol-hydrochlorothiazide documented in this encounterAultman Hospital09-27-2022 History of Present illness Narrative* Briana [...] minimal symptoms Essential hypertension 1999 Essential tremor 2014 Hemorrhoids Hyperlipidemia, unspecified 01/03/2016 [...] nephrology: Not at this time. Patient states credit product analyst told him he didn't need to follow-up [...] Patient agreeable to treatment plan. Briana Mcginnis APRN.DISTRIBUTION FIELD TECHNICIAN documented in this encounterAultman Hospital09-21-2022 History of Present illness Narrative* Abi Nuñez Pss - 12/13/2021 2:55 PM EDT POPULATION HEALTH NAVIGATION OUTREACH Action/FYI: [employer] Care Gaps 12/13/21 Discuss/Due: ~HgBA1C ~Flu vaccine *HgBA1C order pending, sent to PCP to review and advise Pt identified by name and : NO Did you use a PCP flex slot to schedule this appointment? N/A Reason for Outreach Care Gap or Scheduling/Wellness visits Payer: Payor: DANN MEDICARE / Plan: AET MEDICARE PPO / Product Type: PPO / Care Gap Reviewed:: HBA1C Flu vaccine Reminder: Reminder note to check Health Maintenance for items below Health Maintenance items due: COVID-19 VACCINE(4 - Booster for Moderna series) due on 11/13/2021 INFLUENZA(1) due on 11/23/2021 Message Sent to Practice: Yes Navigation Signature: Abi Nuñez Population Health Navigator December 13, 2021 2:55 PM documented in this encounterAultman Hospital09-16-2022 Miscellaneous Notes* Telephone Encounter - Masha Randhawa Pss - 12/08/2021 9:49 AM EDT Vincenzo is calling for refills. The metformin was sent to [facility] but although the charge shows up on his credit card he has not received the meds. He would like his medications sent to the local [place] pharmacy for now. Patient advised to notify his insurance (he has already spoken to [facility] with no help). Patient will call to notify reason for change in pharmacy. * Telephone Encounter - Masha Randhawa Pss - 12/08/2021 9:47 AM EDT Pharmacy verified in Epic Patient has been identified by name and [...] advise. Masha Randhawa Pss documented in this encounterAultman Hospital08-19-2022 Miscellaneous Notes* Telephone Encounter - Stacia [...] RX will be sent to pharmacy. Radha Vargas documented in this encounterAultman Hospital07-08-2022 Miscellaneous Notes* Telephone Encounter - Claudia [...] Scripts received the script. documented in this encounterAultman Hospital06-27-2022 Instructions* Patient Instructions* Briana Mcginnis APRN.OMARI - 09/18/2021 9:40 AM EDT For diabetes: start Trulicity injectable once a week, take on the same day of the week consistently. Once you start Trulicity please discontinue sitagliptin (Januvia). Let me know if you aren't able to pickling solution maker the Trulicity Start checking your blood sugars once a day, first thing before you eat breakfast. Write the numbers down and bring to your next appointment documented in this encounterAultman Hospital06-27-2022 History of Present illness Narrative* Briana Mcginnis APRN.CNP - 09/18/2021 9:22 AM EDT CC: Patient [...] and normal potassium. He is established with credit product analyst at [facility], labs done last week. He still [...] minimal symptoms Essential hypertension 2000 Essential tremor 2013 Hemorrhoids Hyperlipidemia, unspecified 01/03/2016 [...] DATA REVIEWED: Most recent labs done at [facility] ASSESSMENT/PLAN: 1. Type 2 diabetes mellitus [...] arise. - Discussed diabetic education issues of long wall mining machine helper diabetic complications, diet, medications- side effects and [...] vaccine - ICD9: V04.89, ICD10: Z23 - [employer] COVID-19 VACCINE, AGE 12+ YR ([place]) Prescription instructions reviewed with patient as applicable. Potential red flag symptoms discussed with the patient. Reviewed appropriate action plan to take if red flag symptoms occur. Patient agreeable to treatment plan. Briana Mcginnis APRN.CNP [facility]* Diagnosis Type 2 diabetes mellitus with stage 3a chronic kidney disease, without long-term current use of insulin (HCC)- Primary Essential hypertension Unspecified essential hypertension Stage 3 chronic kidney disease, unspecified whether stage 3a or 3b CKD (HCC) Need for COVID-19 vaccine [facility] Miscellaneous Notes* Telephone Encounter - Sravani [...] with Dr. Mcdaniel in August Briana Mcginnis APRN.OMARI documented in [facility] encounter[facility] Evaluation note* Diagnosis Hypertensive kidney disease with stage 3a chronic kidney disease (HCC)- Primary [facility] Miscellaneous Notes* Telephone Encounter - Claudia Longoria LPN - 06/28/2021 3:12 PM EDT rec'd [facility] from [facility] saying insurance will cover rosuvastatin one tablet daily. Can this be changed to rosuvastatin 10 mg one daily #90 ? documented in this encounterA[facility]04-[facility]22 Miscellaneous Notes* Telephone Encounter - Consuelo [...] until we recheck kidney function Briana Mcginnis APRN.CNP * Telephone Encounter - Suzanna Granados RN - 06/23/2021 4:00 PM EDT Patient returned call and given provider's message below. Patient states he is willing to go back on the Crestor, either at a low dose or what he was on. He states it is up to the provider. Requesting [facility] in [place]. He also states he is taking his [...] Metformin? Briana Mcginnis APRN.CNP documented in this encounterA[facility]03-28-[facility]22 Miscellaneous Notes* Telephone Encounter - Zenaida [...] weeks Briana Mcginnis APRN.CNP documented in [facility] encounter[facility]03-[facility] History of Present illness Narrative* rFanko Mcdaniel MD - 06/15/2021 9:21 AM EDT This note was created using [employer]. Subjective Vincenzo Bucio is a 71 year old male. He had no concerns. He had not done his labs. His credit product analyst reduced ACEI due to potassium elevation. He [...] CRESTOR. Franko Mcdaniel MD documented in this encounterA[facility]03-[facility]22 Evaluation note* Diagnosis Essential hypertension- Primary Unspecified essential hypertension Type 2 diabetes mellitus with stage 3a chronic kidney disease, without long-term current use of insulin (HCC) Hypertensive kidney disease with stage 3a chronic kidney disease (HCC) Hyperlipidemia, unspecified hyperlipidemia type [facility] History of Present illness Narrative* Daily Jerome (Rt), [facility] - 05/05/2020 4:10 PM EST Radiology Service Progress Note PATIENT NAME: Vincenzo Bucio DATE OF SERVICE: May 05, 2020 TIME: 4:39 PM PATIENT IDENTITY VERIFICATION COMPLETED USING TWO (2) IDENTIFIERS: Name and Date of confirmedby patient verbally. FALL SCREENING: Has the patient had 2 falls in the last year or 1 fall with injury or currently using an Ambulatory Assistive Device (Walker, Cane, Wheelchair, Crutches, etc.)? No PATIENT GENDER DATA: Male PATIENT RELEVANT IMPLANT DATA REVIEWED: Not Applicable RADIOLOGY DEPARTMENT: General X-ray: Exam(s) Completed: Lower Extremity X- Ray(s): Foot, Left and Wt. Bearing: PERIPHERAL IV DATA: Not applicable SIGNED BY: RT Rebecca May 05, 2020 4:39 PM documented in this encounter[address]19-2018 History of Past illness Narrative* Problem Noted Date Resolved Date Kidney insufficiency 10/10/2017 05/05/2020 Frequency of micturition 01/03/2016 017 Anogenital warts 12/27/2016 Obesity (BMI 30-39.9) 05/05/2018 documented as of this encounter (statuses as of 06/15/2021) [address]19-2018 History of Past illness Narrative* Problem Noted Date Resolved Date Kidney insufficiency 10/10/2017 05/05/2020 Frequency of micturition 01/03/2016 017 Anogenital warts 12/27/2016 Obesity (BMI 30-39.9) 05/05/2018 documented as of this encounter (statuses as of 06/19/2021) [address]19-2018 History of Past illness Narrative* Problem Noted Date Resolved Date Kidney insufficiency 10/10/2017 05/05/2020 Frequency of micturition 01/03/2016 017 Anogenital warts 12/27/2016 Obesity (BMI 30-39.9) 05/05/2018 documented as of this encounter (statuses as of 06/26/2021) [address]19-2018 History of Past illness Narrative* Problem Noted Date Resolved Date Kidney insufficiency 10/10/2017 05/05/2020 Frequency of micturition 01/03/2016 017 Anogenital warts 12/27/2016 Obesity (BMI 30-39.9) 05/05/2018 documented as of this encounter (statuses as of 06/28/2021) [address]19-2018 History of Past illness Narrative* Problem Noted Date Resolved Date Kidney insufficiency 10/10/2017 05/05/2020 Frequency of micturition 01/03/2016 017 Anogenital warts 12/27/2016 Obesity (BMI 30-39.9) 05/05/2018 documented as of this encounter (statuses as of 06/30/2021) [address]19-2018 History of Past illness Narrative* Problem Noted Date Resolved Date Kidney insufficiency 10/10/2017 05/05/2020 Frequency of micturition 01/03/2016 017 Anogenital warts 12/27/2016 Obesity (BMI 30-39.9) 05/05/2018 documented as of this encounter (statuses as of 09/18/2021) [address]19-2018 History of Past illness Narrative* Problem Noted Date Resolved Date Kidney insufficiency 10/10/2017 05/05/2020 Frequency of micturition 01/03/2016 017 Anogenital warts 12/27/2016 Obesity (BMI 30-39.9) 05/05/2018 documented as of this encounter (statuses as of 10/02/2021) [address]19[address]2018 History of Past illness Narrative* Problem Noted Date Resolved Date Kidney insufficiency 10/10/2017 05/05/2020 Frequency of micturition 01/03/2016 017 Anogenital warts 12/27/2016 Obesity (BMI 30-39.9) 05/05/2018 documented as of this encounter (statuses as of 11/10/2021) [address]19[address]2018 History of Past illness Narrative* Problem Noted Date Resolved Date Kidney insufficiency 10/10/2017 05/05/2020 Frequency of micturition 01/03/2016 017 Anogenital warts 12/27/2016 Obesity (BMI 30-39.9) 05/05/2018 documented as of this encounter (statuses as of 12/08/2021) [address]19-2018 History of Past illness Narrative* Problem Noted Date Resolved Date Kidney insufficiency 10/10/2017 05/05/2020 Frequency of micturition 01/03/2016 017 Anogenital warts 12/27/2016 Obesity (BMI 30-39.9) 05/05/2018 documented as of this encounter (statuses as of 12/19/2021) [address]19-2018 History of Past illness Narrative* Problem Noted Date Resolved Date Kidney insufficiency 10/10/2017 05/05/2020 Frequency of micturition 01/03/2016 017 Anogenital warts 12/27/2016 Obesity (BMI 30-39.9) 05/05/2018 documented as of this encounter (statuses as of 12/25/2021) [place] [address] History of Past illness Narrative* Problem Noted Date Resolved Date Kidney insufficiency 10/10/2017 05/05/2020 Frequency of micturition 01/03/2016 017 Anogenital warts 12/27/2016 Obesity (BMI 30-39.9) 05/05/2018 documented as of this encounter (statuses as of 12/28/2021) [place] [address] History of Past illness Narrative* Problem Noted Date Resolved Date Kidney insufficiency 10/10/2017 05/05/2020 Frequency of micturition 01/03/2016 017 Anogenital warts 12/27/2016 Obesity (BMI 30-39.9) 05/05/2018 documented as of this encounter (statuses as of 01/06/2022) [place] [address] History of Past illness Narrative* Problem Noted Date Resolved Date Kidney insufficiency 10/10/2017 05/05/2020 Frequency of micturition 01/03/2016 017 Anogenital warts 12/27/2016 Obesity (BMI 30-39.9) 05/05/2018 documented as of this encounter (statuses as of 03/27/2022) [place] [address] History of Past illness Narrative* Problem Noted Date Resolved Date Kidney insufficiency 10/10/2017 05/05/2020 Frequency of micturition 01/03/2016 017 Anogenital warts 12/27/2016 Obesity (BMI 30-39.9) 05/05/2018 documented as of this encounter (statuses as of 03/31/2022) [place] [address] History of Past illness Narrative* Problem Noted Date Resolved Date Kidney insufficiency 10/10/2017 05/05/2020 Frequency of micturition 01/03/2016 017 Anogenital warts 12/27/2016 Obesity (BMI 30-39.9) 05/05/2018 documented as of this encounter (statuses as of 04/02/2022) [address]19[address]2018 History of Past illness Narrative* Problem Noted Date Resolved Date Kidney insufficiency 10/10/2017 05/05/2020 Frequency of micturition 01/03/2016 017 Anogenital warts 12/27/2016 Obesity (BMI 30-39.9) 05/05/2018 documented as of this encounter (statuses as of 04/04/2022) [place] [address] History of Past illness Narrative* Problem Noted Date Resolved Date Kidney insufficiency 10/10/2017 05/05/2020 Frequency of micturition 01/03/2016 017 Anogenital warts 12/27/2016 Obesity (BMI 30-39.9) 05/05/2018 documented as of this encounter (statuses as of 04/04/2022) [address]19-2018 History of Past illness Narrative* Problem Noted Date Resolved Date Kidney insufficiency 10/10/2017 05/05/2020 Frequency of micturition 01/03/2016 017 Anogenital warts 12/27/2016 Obesity (BMI 30-39.9) 05/05/2018 documented as of this encounter (statuses as of 04/26/2022) [address]19-2018 History of Past illness Narrative* Problem Noted Date Resolved Date Kidney insufficiency 10/10/2017 05/05/2020 Frequency of micturition 01/03/2016 017 Anogenital warts 12/27/2016 Obesity (BMI 30-39.9) 05/05/2018 documented as of this encounter (statuses as of 06/20/2022) [address] History of Past illness Narrative* Problem Noted Date Resolved Date Kidney insufficiency 10/10/2017 05/05/2020 Frequency of micturition 01/03/2016 017 Anogenital warts 12/27/2016 Obesity (BMI 30-39.9) 05/05/2018 documented as of this encounter (statuses as of 06/28/2022) [address]19[address]2018 History of Past illness Narrative* Problem Noted Date Resolved Date Kidney insufficiency 10/10/2017 05/05/2020 Frequency of micturition 01/03/2016 017 Anogenital warts 12/27/2016 Obesity (BMI 30-39.9) 05/05/2018 documented as of this encounter (statuses as of 07/13/2022) [place] [address] History of Past illness Narrative* Problem Noted Date Resolved Date Kidney insufficiency 10/10/2017 05/05/2020 Frequency of micturition 01/03/2016 017 Anogenital warts 12/27/2016 Obesity (BMI 30-39.9) 05/05/2018 documented as of this encounter (statuses as of 07/27/2022) [address]19-2018 History of Past illness Narrative* Problem Noted Date Diagnosed Date Resolved Date Kidney insufficiency 10/10/2017 021 Frequency of micturition 01/03/201607/2016 Anogenital warts 12/27/2016 Obesity (BMI 30-39.9) 2018 documented as of this encounter (statuses as of 10/01/2022) [place] [address] History of Past illness Narrative* Problem Noted Date Diagnosed Date Resolved Date Kidney insufficiency 10/10/2017 021 Frequency of micturition 01/03/201607/2016 Anogenital warts 12/27/2016 Obesity (BMI 30-39.9) 2018 documented as of this encounter (statuses as of 10/18/2022) [address]19[address]2018 History of Past illness Narrative* Problem Noted Date Diagnosed Date Resolved Date Kidney insufficiency 10/10/2017 021 Frequency of micturition 01/03/201607/2016 Anogenital warts 12/27/2016 Obesity (BMI 30-39.9) 2018 documented as of this encounter (statuses as of 04/30/2023) [facility] Diagnosis Hyperkalemia- Primary Hyperpotassemia documented in this encounter [facility] noteNo assessment information availableWChildren's Hospital of [facility] Work Phone: Evaluation note* Diagnosis Hyperlipidemia, unspecified hyperlipidemia type- Primary Type 2 diabetes mellitus with stage 3a chronic kidney disease, without long-term current use of insulin (HCC) Essential hypertension Unspecified essential hypertension Obesity, Class I, BMI 30-34.9 Obesity, unspecified documented in this encounter [facility] note* Diagnosis Hyperkalemia- Primary Hyperpotassemia documented in this encounter [facility] note* Diagnosis Essential hypertension Unspecified essential hypertension documented in this encounter [facility] note* Diagnosis Aortic valve stenosis, etiology of cardiac valve disease unspecified- Primary documented in this encounter [facility] note* Diagnosis Acute foot pain, left documented in this encounter [facility] for referral (narrative)* Outpatient Procedure (Routine) - Authorized Specialty Diagnoses / Procedures Referred By Mary barnard Referred To Contact [facility] [place] Diagnoses Heart murmur Procedures ECHO ECHO TTHRC R-T 2D W/WOM-MODE COMPL SPEC&COLR D Franko Mcdaniel MD [address] [place] [address] [facility] [place] [address] Referral ID Status Reason Start Date Expiration Date Visits Requested Visits Authorized [id number] Authorized Auto-Generat ed Referral 06/20/2022 06/20/2023 1 1 * Outpatient Procedure (Routine) - Authorized Specialty Diagnoses / Procedures Referred By Mary barnard Referred To Contact [facility] Diagnoses Special screening for malignant neoplasms, colon Procedures COLONOSCOPY SCREENING COLONOSCOPY FLX DX W/COLLJ SPEC WHEN PFRMD Franko Mcdaniel MD [address] [place] [address] [facility] [place] [address] [place] [address] Referral ID Status Reason Start Date Expiration Date Visits Requested Visits Authorized [id number] Authorized Auto-Generat ed Referral 06/20/2022 06/21/2023 1 1 [facility] for referral (narrative)No reason for referral information availableWChildren's Hospital of [facility] Work Phone: Summary Purpose Family History No Family History Records FoundNo Family History Records FoundNo Family History Records FoundNo Family History Records Found Advance Directives No Advanced Directives Records FoundDocuments on File Type Date Recorded Patient Pot Feeder Expl anation Advance Directive(s) 02/29/2020 10:40 AM Advance Directive(s) 03/26/2018 9:01 AM Advance Directive(s) 01/19/2016 12:00 AM Documents on File Type Date Recorded Patient Pot Feeder Expl anation Advance Directive(s) 01/19/2016 12:00 AM Documents on File Type Date Recorded Patient Pot Feeder Expl anation Advance Directive(s) 01/19/2016 12:00 AM Reason for Referral Specialty Diagnoses / Procedures Referred By Contac t Referred To Contact Diagnoses Type 2 diabetes mellitus with stage 3a chronic kidney disease, without long-term current use of insulin (HCC) Procedures CONSULT TO DIABETES EDUCATION OFFICE/OUTPATIENT [facility] 60-74 MINUTES Franko Mcdaniel MD [address] [place] [address] [facility] [address] [address] [place] [address] Referral ID Status Reason Start Date Expiration Date Visits Requested Visits Authorized [id number] Pending Review PCP Requested Referral 03/21/2023 1 1 Specialty Diagnoses / Procedures Referred By Contac t Referred To Contact Cardiology Diagnoses Aortic valve stenosis, etiology of cardiac valve disease unspecified Procedures CONSULT TO CARDIOLOGY OFFICE/OUTPATIENT [facility] 60-74 MINUTES Briana Mcginnis APRN.DISTRIBUTION FIELD TECHNICIAN [address] [place] [address] Referral ID Status Reason Start Date Expiration Date Visits Requested Visits Authorized [id number] Pending Review PCP Requested Referral 07/11/2022 07/11/2023 1 1 Chief Complaint and Reason for Visit Chief Complaint CARDIAC MURMUR Chief Complaint EORDER Chief Complaint Admit Date NONTOXIC SINGLE THYROID NODULE June 12:57pm Additional Source Comments (unrecognized sect ion and content) No Status Records FoundNo Status Records FoundNo Status Records FoundNo Status Records Found INFORMATION SOURCE (unrecogn ized section and content) DATE CREATED AUTHOR [facility] DATE CREATED AUTHOR AUTHOR'S ORGANIZ ATION 01/06/2023 [facility] DATE CREATED AUTHOR AUTHOR'S ORGANIZ ATION 08/19/2024 [facility] DATE CREATED AUTHOR AUTHOR'S ORGANIZ ATION 09/28/2024 [facility] Source Comments (unrecognize d section and content) In the event this informatio n is protected by the Federal Confidentiality of Alcohol and Drug Abuse Patient Records regulations: The Federal rules restrict any use of the information to criminally investigate or prosecute any alcohol or drug abuse patient.[facility] HospitalIn the event this information is protected by the Federal Confidentiality of Alcohol and Drug Abuse Patient Records regulations: The Federal rules restrict any use of the information to criminally investigate or prosecute any alcohol or drug abuse patient.[facility] HospitalIn the event this information is protected by the Federal Confidentiality of Alcohol and Drug Abuse Patient Records regulations: The Federal rules restrict any use of the information to criminally investigate or prosecute any alcohol or drug abuse patient.[facility] HospitalIn the event this information is protected by the Federal Confidentiality of Alcohol and Drug Abuse Patient Records regulations: The Federal rules restrict any use of the information to criminally investigate or prosecute any alcohol or drug abuse patient.[facility] HospitalIn the event this information is protected by the Federal Confidentiality of Alcohol and Drug Abuse Patient Records regulations: The Federal rules restrict any use of the information to criminally investigate or prosecute any alcohol or drug abuse patient.[facility] HospitalIn the event this information is protected by the Federal Confidentiality of Alcohol and Drug Abuse Patient Records regulations: The Federal rules restrict any use of the information to criminally investigate or prosecute any alcohol or drug abuse patient.[facility] HospitalIn the event this information is protected by the Federal Confidentiality of Alcohol and Drug Abuse Patient Records regulations: The Federal rules restrict any use of the information to criminally investigate or prosecute any alcohol or drug abuse patient.[facility] HospitalIn the event this information is protected by the Federal Confidentiality of Alcohol and Drug Abuse Patient Records regulations: The Federal rules restrict any use of the information to criminally investigate or prosecute any alcohol or drug abuse patient.[facility] HospitalIn the event this information is protected by the Federal Confidentiality of Alcohol and Drug Abuse Patient Records regulations: The Federal rules restrict any use of the information to criminally investigate or prosecute any alcohol or drug abuse patient.[facility] HospitalIn the event this information is protected by the Federal Confidentiality of Alcohol and Drug Abuse Patient Records regulations: The Federal rules restrict any use of the information to criminally investigate or prosecute any alcohol or drug abuse patient.[facility] HospitalIn the event this information is protected by the Federal Confidentiality of Alcohol and Drug Abuse Patient Records regulations: The Federal rules restrict any use of the information to criminally investigate or prosecute any alcohol or drug abuse patient.[facility] HospitalIn the event this information is protected by the Federal Confidentiality of Alcohol and Drug Abuse Patient Records regulations: The Federal rules restrict any use of the information to criminally investigate or prosecute any alcohol or drug abuse patient.[facility] HospitalIn the event this information is protected by the Federal Confidentiality of Alcohol and Drug Abuse Patient Records regulations: The Federal rules restrict any use of the information to criminally investigate or prosecute any alcohol or drug abuse patient.[facility] HospitalIn the event this information is protected by the Federal Confidentiality of Alcohol and Drug Abuse Patient Records regulations: The Federal rules restrict any use of the information to criminally investigate or prosecute any alcohol or drug abuse patient.[facility] HospitalIn the event this information is protected by the Federal Confidentiality of Alcohol and Drug Abuse Patient Records regulations: The Federal rules restrict any use of the information to criminally investigate or prosecute any alcohol or drug abuse patient.[facility] HospitalIn the event this information is protected by the Federal Confidentiality of Alcohol and Drug Abuse Patient Records regulations: The Federal rules restrict any use of the information to criminally investigate or prosecute any alcohol or drug abuse patient.[facility] HospitalIn the event this information is protected by the Federal Confidentiality of Alcohol and Drug Abuse Patient Records regulations: The Federal rules restrict any use of the information to criminally investigate or prosecute any alcohol or drug abuse patient.[facility] HospitalIn the event this information is protected by the Federal Confidentiality of Alcohol and Drug Abuse Patient Records regulations: The Federal rules restrict any use of the information to criminally investigate or prosecute any alcohol or drug abuse patient.[facility] HospitalIn the event this information is protected by the Federal Confidentiality of Alcohol and Drug Abuse Patient Records regulations: The Federal rules restrict any use of the information to criminally investigate or prosecute any alcohol or drug abuse patient.[facility] HospitalIn the event this information is protected by the Federal Confidentiality of Alcohol and Drug Abuse Patient Records regulations: The Federal rules restrict any use of the information to criminally investigate or prosecute any alcohol or drug abuse patient.[facility] HospitalIn the event this information is protected by the Federal Confidentiality of Alcohol and Drug Abuse Patient Records regulations: The Federal rules restrict any use of the information to criminally investigate or prosecute any alcohol or drug abuse patient.[facility] HospitalIn the event this information is protected by the Federal Confidentiality of Alcohol and Drug Abuse Patient Records regulations: The Federal rules restrict any use of the information to criminally investigate or prosecute any alcohol or drug abuse patient.[facility] HospitalIn the event this information is protected by the Federal Confidentiality of Alcohol and Drug Abuse Patient Records regulations: The Federal rules restrict any use of the information to criminally investigate or prosecute any alcohol or drug abuse patient.[facility] HospitalIn the event this information is protected by the Federal Confidentiality of Alcohol and Drug Abuse Patient Records regulations: The Federal rules restrict any use of the information to criminally investigate or prosecute any alcohol or drug abuse patient.[facility] HospitalIn the event this information is protected by the Federal Confidentiality of Alcohol and Drug Abuse Patient Records regulations: The Federal rules restrict any use of the information to criminally investigate or prosecute any alcohol or drug abuse patient.[facility] HospitalIn the event this information is protected by the Federal Confidentiality of Alcohol and Drug Abuse Patient Records regulations: The Federal rules restrict any use of the information to criminally investigate or prosecute any alcohol or drug abuse patient.[facility] HospitalIn the event this information is protected by the Federal Confidentiality of Alcohol and Drug Abuse Patient Records regulations: The Federal rules restrict any use of the information to criminally investigate or prosecute any alcohol or drug abuse patient.[facility] HospitalIn the event this information is protected by the Federal Confidentiality of Alcohol and Drug Abuse Patient Records regulations: The Federal rules restrict any use of the information to criminally investigate or prosecute any alcohol or drug abuse patient.[facility] Reason for Visit (unrecogniz ed section and content) Reason Comments F/U 6 months Reason Comments Results, Lab Reason Comments Patient [...] Reason Comments Missed Appointment Pharmacy visit kasey brandan Reason Comments F/U 3 Month Reason Comments Appointment Reason Comments Results Reason Comments Results Colonoscopy results Reason Onset Date Comments Population Health Navigation Outreach 10/17/2022 [employer] care gaps Reason Onset Date Comments Population Health Navigation Outreach 04/30/2023 [employer] care gaps Reason Onset Date Comments Population Health Navigation Outreach 05/07/2024 [employer] High Risk - Attempt 1 Care Teams (unrecognized sec tion and content) Team Status: Active Member Role Status Dates Dr. Martinez Puga MD Primary Care Provider Active Team Status: Inactive Member Role Status Dates Dr. Martinez Puga MD Primary Care Provider, Attend ing Provider Active Team Status: Inactive Member Role Status Dates Dr. Martinez Puga MD Primary Care Pr ovider, Attending Provider, Referring Provider Active Data Recovery Planner Relationship Specialty Start Date End Date Franko Mcdaniel MD [address] [place] [address] PCP - General Internal Medicine 12/27/16 Data Recovery Planner Relationship Specialty Start Date End Date Franko Mcdaniel MD [address] [place] [address] PCP - General Internal Medicine 12/27/16 Data Recovery Planner Relationship Specialty Start Date End Date Franko Mcdaniel MD [address] [place] [address] PCP - General Internal Medicine 12/27/16 Data Recovery Planner Relationship Specialty Start Date End Date Franko Mcdaniel MD [address] [place] [address] PCP - General Internal Medicine 12/27/16 Data Recovery Planner Relationship Specialty Start Date End Date Franko Mcdaniel MD [address] [place] [address] PCP - General Internal Medicine 12/27/16 Data Recovery Planner Relationship Specialty Start Date End Date Franko Mcdaniel MD [address] [place] [address] PCP - General Internal Medicine 12/27/16 Data Recovery Planner Relationship Specialty Start Date End Date Franko Mcdaniel MD [address] [place] [address] PCP - General Internal Medicine 12/27/16 Data Recovery Planner Relationship Specialty Start Date End Date Franko Mcdaniel MD [address] [place] [address] PCP - General Internal Medicine 12/27/16 Data Recovery Planner Relationship Specialty Start Date End Date Franko Mcdaniel MD [address] [place] [address] PCP - General Internal Medicine 12/27/16 Data Recovery Planner Relationship Specialty Start Date End Date Franko Mcdaniel MD [address] [place] [address] PCP - General Internal Medicine 12/27/16 Data Recovery Planner Relationship Specialty Start Date End Date Franko Mcdaniel MD [address] [place] [address] PCP - General Internal Medicine 12/27/16 Data Recovery Planner Relationship Specialty Start Date End Date Franko Mcdaniel MD [address] [place] [address] PCP - General Internal Medicine 12/27/16 Data Recovery Planner Relationship Specialty Start Date End Date Franko Mcdaniel MD [address] [place] [address] PCP - General Internal Medicine 12/27/16 Data Recovery Planner Relationship Specialty Start Date End Date Franko Mcdaniel MD [address] [place] [address] PCP - General Internal Medicine 12/27/16 Data Recovery Planner Relationship Specialty Start Date End Date Franko Mcdaniel MD [address] [place] [address] PCP - General Internal Medicine 12/27/16 Data Recovery Planner Relationship Specialty Start Date End Date Franko Mcdaniel MD [address] [place] [address] PCP - General Internal Medicine 12/27/16 Team Status: Active Member Role Status Dates Dr. Martinez Puga MD Primary Care Provider Active Dr. Michel Laughlin MD Attending Provider Active Team Status: Active Member Role Status Dates Dr. Martinez Puga MD Primary Care Pr ovider, Attending Provider, Referring Provider Active Data Recovery Planner Relationship Specialty Start Date End Date Martinez Puga MD [address] [facility] [address] [place] [address] PCP - General Family Medicine 04/30/23 Data Recovery Planner Relationship Specialty Start Date End Date Franko Mcdaniel MD [address] [place] [address] PCP - General Internal Medicine 12/27/16 04/29/23 Data Recovery Planner Relationship Specialty Start Date End Date Martinez Puga MD [address] [facility] [address] [place], [place] [address] PCP - General Family Medicine 04/30/23 Team Status: Inactive Member Role Status Dates Dr. Martinez Puga MD Primary Care Provider Active Start: July 02, 2024 End: July 02, 2024 Dr. Martinez Puga MD Attending Provider Active Start: July 02, 2024 End: July 02, 2024 Dr. Martinez Puga MD Referring Provider Active Start: July 02, 2024 End: July 02, 2024 Team Status: Active Member Role Status Dates Dr. Martinez Puga MD Primary Care Provider Active Start: July 07, 2024 Dr. Martinez Puga MD Attending Provider Active Start: July 07, 2024 Dr. Martinez Puga MD Referring Provider Active Start: July 07, 2024 Team Status: Inactive Member Role Status Dates Dr. Martinez Puga MD Primary Care Provider Active Start: July 07, 2024 End: July 07, 2024 Dr. Martinez Puga MD Attending Provider Active Start: July 07, 2024 End: July 07, 2024 Dr. Martinez Puga MD Referring Provider Active Start: July 07, 2024 End: July 07, 2024 Goals (unrecognized section and content) Goals may be documented in a n alternate sectionGoals may be documented in an alternate sectionGoals may be documented in an alternate sectionGoals may be documented in an alternate sectionGoals may be documented in an alternate section FOR RECORDS PERTAINING TO PATIENTS WHO ARE [...] BE BASED ON THE PRIMARY CLINICAL RECORDS. [employer] [facility]. provides no warranty or guarantee of the accuracy or completeness of information in this document.
== END | disposition home or self-care (01) ==
PROVIDERS: PCP Family Medicine; Referring Provider Chiropractor; Visit Provider Chiropractor
DX: E11.9 Type 2 diabetes mellitus without complications (principal)
CPT/HCPCS: 36415; 80053; 81002